=== PATIENT | female | born 1970 | race Caucasian/White ===

== ENCOUNTER 2020-08-04 08:15 | Outpatient (REF) | payer OTHER, SELFPAY ==
--- NOTE | ~2020-08-04 | XR_ITS ---
EXAMINATION: XR CHEST CLINICAL INFORMATION: Morbid obesity COMPARISON: None TECHNIQUE: 2 views of the chest were obtained. FINDINGS: The cardiac and mediastinal contours are normal. The lungs are clear. There is no pleural effusion or pneumothorax. Bony structures are unremarkable. XR/XR chest 2V IMPRESSION: Unremarkable examination.
== END 2020-08-04 08:16 | disposition home or self-care (01) ==
LOC: HO.XRAY 08:15
PROVIDERS: PCP Internal Medicine; Visit Provider Surgery
DX: E66.01 Morbid (severe) obesity due to excess calories (principal); M19.90 Unspecified osteoarthritis, unspecified site; Z88.1 Allergy status to other antibiotic agents; Z88.0 Allergy status to penicillin; Z88.2 Allergy status to sulfonamides; Z90.49 Acquired absence of other specified parts of digestive tract; Z71.3 Dietary counseling and surveillance
CPT/HCPCS: 71046

== ENCOUNTER 2020-08-05 09:34 | Outpatient (REF) | payer OTHER, SELFPAY ==
[2020-08-05 10:10] LABS: MANUAL DIFF FLAG NO
[2020-08-05 10:14] LABS: Basophils Percent Auto 0.2 % (0-2); Eosinophils Absolute Auto 0.1 X10*3/uL (0.0-0.4); Hemoglobin 13.6 g/dl (12.0-16.0); Imm Gran Abs Auto 0.02 X10*3/uL (0.00-0.03); Imm Gran Pct Auto 0.2 % (0.0-0.4); Lymphocytes Absolute Auto 2.2 X10*3/uL (1.2-4.9); Lymphocytes Percent Auto 25.2 % (20-40); Mean Corpuscular HGB Conc 32.4 g/dl (31.0-35.0); Mean Corpuscular Volume 89.6 fL (80-98); Mean Platelet Volume 10.4 fL (9.4-12.3); Monocytes Absolute Auto 0.5 X10*3/uL (0.1-1.2); Monocytes Percent Auto 5.3 % (2-11); Neutrophils Percent Auto 68.1 % (45-73); Platelet Count 268 X10*3/uL (160-400); Red Blood Count 4.69 X10*6/uL (4.20-5.50); Red Cell Distribution Width 12.8 % (11.0-16.0); White Blood Count 8.9 X10*3/uL (4.8-10.8)
[2020-08-05 10:23] LABS: Estimated Average Glucose 166 mg/dL; Hemoglobin A1c % 7.4 %
[2020-08-05 10:52] LABS: Alanine Aminotransferase 27 U/L (0-31); Albumin Level 4.3 g/dL (3.5-5.0); Alkaline Phosphatase 69 U/L (39-117); Anion Gap 16 (12-20); Aspartate Amino Transferase 25 U/L (5-31); Bilirubin Total 0.4 mg/dL (0.0-1.0); Blood Urea Nitrogen 12 mg/dL (9-16); C Reactive Protein 1.56 mg/dL (< or = 0.50); Calcium 9.5 mg/dL (8.4-10.2); Carbon Dioxide 21 mmol/L (22-29); Chloride 105 mmol/L (96-108); Cholesterol 205 mg/dL; Estimated Glomerular Filt Rate > 60; Glucose Random 167 mg/dL (60-115); HDL Cholesterol 44 mg/dL; LDL Cholesterol Calculated 134 mg/dl; Potassium 4.2 mmol/L (3.3-5.1); Sodium 138 mmol/L (135-145); Total Protein 6.8 g/dL (6.5-8.0); Triglycerides 138 mg/dL
[2020-08-05 11:13] LABS: Ferritin 59 ng/mL (10-250); TSH reflex Free T4 0.66 uIU/mL (0.32-4.0); Vitamin D 25-OH Total 8.8 ng/mL (>30)
[2020-08-07 09:12] LABS: Folate 11.3 ng/mL (> or = 4.0); Vitamin B12 361 pg/mL (200-900)
[2020-08-07 21:16] LABS: Insulin Level Total 57.6 uIU/mL
[2020-08-08 06:01] LABS: Zinc 79 mcg/dL (60-130)
[2020-08-08 17:37] LABS: Calcium (PTHI) 9.5 mg/dL (8.6-10.2); PTHI 54 pg/mL (14-64)
[2020-08-09 12:23] LABS: Vitamin A 50 mcg/dL (38-98); Vitamin B1 8 nmol/L (8-30)
== END 2020-08-05 09:35 | disposition home or self-care (01) ==
LOC: HO.LAB 09:34
PROVIDERS: PCP Internal Medicine; Visit Provider Surgery
DX: E66.01 Morbid (severe) obesity due to excess calories (principal)
CPT/HCPCS: 36415; 80053; 80061; 82306; 82607; 82728; 82746; 83036; 83525; 83970; 84425; 84443; 84590; 84630; 85025; 86140

== ENCOUNTER → 2020-08-07 15:14 | Outpatient (REF) | payer OTHER, SELFPAY ==
--- NOTE | 2020-08-07 15:24 | ECG_ITS ---
Test Reason : MORBID OBESITY Blood Pressure : / mmHG Vent. Rate : 112 BPM Atrial Rate : 112 BPM P-R Int : 130 ms QRS Dur : 068 ms QT Int : 324 ms P-R-T Axes : 050 002 -08 degrees QTc Int : 442 ms Sinus tachycardia Moderate voltage criteria for LVH, may be normal variant Borderline ECG No previous ECGs available Referred By: Jah Marinelli Electronically Signed By:Tom Falcon
== END ==
LOC: HO.CARD 15:14
PROVIDERS: PCP Internal Medicine; Visit Provider Surgery
DX: E66.01 Morbid (severe) obesity due to excess calories (principal)
CPT/HCPCS: 93005

== ENCOUNTER 2020-08-09 08:57 | Outpatient (REF) | payer OTHER, SELFPAY | END 2020-08-09 08:58 | disposition home or self-care (01) | LOC: HO.LNP 08:57 | PROVIDERS: PCP Internal Medicine; Visit Provider Physician Assistant | DX: A04.8 Other specified bacterial intestinal infections (principal); E66.01 Morbid (severe) obesity due to excess calories | CPT/HCPCS: 99211 ==

== ENCOUNTER 2020-08-14 15:46 | Outpatient (REF) | payer OTHER, SELFPAY ==
[2020-08-16 15:01] LABS: H Pylori Breath Test NOT DETECTED (NOT DETECTED)
== END 2020-08-14 15:47 | disposition home or self-care (01) ==
LOC: HO.LNP 15:46
PROVIDERS: PCP Internal Medicine; Visit Provider Physician Assistant
DX: A04.8 Other specified bacterial intestinal infections (principal)
CPT/HCPCS: 83013; 99211

== ENCOUNTER → 2020-08-25 08:20 | Outpatient (BNVA) | payer OTHER, SELFPAY | PROVIDERS: PCP Internal Medicine; Visit Provider Surgery ==

== ENCOUNTER 2020-08-29 08:01 | Outpatient (REF) | payer OTHER, SELFPAY ==
--- NOTE | ~2020-08-29 | FL_ITS ---
EXAMINATION: FL GI SERIES CLINICAL INFORMATION: Morbid/severe obesity due to excess calories. COMPARISON: None TECHNIQUE: Routine upper GI air contrast study was performed in upright view. FINDINGS: Following oral administration of thick barium and effervescent granules, there is normal propagation of bolus from the oral cavity through the pharynx, esophagus into stomach without any evidence of obstruction, narrowing or stricture. On placing patient supine and prone lying, the course, caliber and peristalsis of the stomach, duodenal bulb and the sweep is normal. The mucosal pattern of the stomach and the duodenum and the distal esophagus is normal. There is [id number] gastroesophageal reflux into the mid esophagus. No hiatal hernia. There is evidence of previous cholecystectomy. FLUOROSCOPY TIME: 2.9 minutes DOSE AREA PRODUCT: 74.6 uGy-m2 (microgray-meter squared) FL/FL upper GI series IMPRESSION: [id number] gastroesophageal reflux without hiatal hernia. Rest of the upper GI exam appears unremarkable.
--- NOTE | ~2020-08-29 | US_ITS ---
EXAMINATION: US COMPLETE ABDOMEN WITH LIVER ELASTOGRAPHY CLINICAL INFORMATION: Morbid/severe obesity due to excess calories. COMPARISON: None. TECHNIQUE: Real-time imaging of the abdominal viscera. Noninvasive ultrasound liver fibrosis assessment is performed using Linda ElastPQ point quantification shear wave elastography (pSWE) with a C5-2 MHz transducer. Multiple elastography samples are obtained. FINDINGS: PANCREAS: Normal. The visualized pancreatic head and body are normal in appearance. The remainder of the pancreas is obscured from visualization by the overlying bowel gas. ABDOMINAL AORTA: The proximal, middle, and distal aortic segments are normal in caliber. INFERIOR VENA CAVA: Visualized portions are normal. LIVER: The liver demonstrates normal size, contour and increased echogenicity. There is focal hypoechoic area in the left hepatic lobe, likely small focal fatty sparing. No additional lesions seen. There is no intrahepatic ductal dilatation. The right lobe measures 17.4 cm in length. The left lobe measures 12.7 cm in length. Portal flow is hepatopedal. Shear wave liver elastography median stiffness is 1.32 m/s (reference: normal median stiffness is 1.3 m/s or less). IQR/median stiffness to assess sampling precision is 0.28 (reference: good quality data set is IQR/median stiffness of 0.15 or less). GALLBLADDER: The gallbladder has been surgically removed. COMMON BILE DUCT: Normal in caliber measuring 0.5 cm in diameter. RIGHT KIDNEY: Normal. No hydronephrosis. No renal calculi or focal parenchymal lesions. The kidney measures 10.4 cm in maximum dimension. LEFT KIDNEY: Normal. No hydronephrosis. No renal calculi or focal parenchymal lesions. The kidney measures 10.7 cm in maximum dimension. SPLEEN: Normal. The spleen measures 9.1 cm in maximum dimension. FREE FLUID: None. US/US abdomen comp w elastography IMPRESSION: 1. Diffuse hepatic steatosis with focal hypoechoic area, likely fatty sparing. 2. Liver elastography: Median stiffness value is 1.32 suggestive of a high probability normal exam. REFERENCE: Society of Radiologists in Ultrasound Liver Stiffness Thresholds (2020): LIVER STIFFNESS THRESHOLDS: *Liver Stiffness equal or less than 1.3 m/s: High probability of being normal. *Liver Stiffness less than 1.7 m/s: In the absence of other known clinical signs, rules out compensated advanced chronic liver disease. *Liver Stiffness 1.7-2.1 m/s: Suggestive of compensated advanced chronic liver disease but need further test for confirmation. *Liver Stiffness over 2.1 m/s: Rules in compensated advanced chronic liver disease. *Liver Stiffness over 2.4 m/s: Suggestive of clinically significant portal hypertension. QUALITY OF DATA SET: *IQR/Median value equal or less than 0.15 implies a quality data set. *IQR/Median value over 0.15 implies a poor quality data set. SIGNIFICANT CHANGE FROM PRIOR EXAM: Significant change if liver stiffness measurement is 10% or greater from prior exam. OTHER CONSIDERATIONS: The stage of liver fibrosis may be overestimated in the setting of acute hepatitis, liver inflammation, elevated liver function tests, hepatic vascular congestion, obstructive cholestasis, non-fasting state, and infiltrative diseases such as amyloidosis and lymphoma. In some patients with NAFLD, the liver stiffness thresholds for compensated advanced chronic liver disease may be lower. In causes other than viral hepatitis and NAFLD, liver stiffness thresholds are not well established.
== END 2020-08-29 08:02 | disposition home or self-care (01) ==
LOC: HO.US 08:01
PROVIDERS: PCP Internal Medicine; Visit Provider Surgery
DX: Z01.818 Encounter for other preprocedural examination (principal); E66.01 Morbid (severe) obesity due to excess calories; K21.9 Gastro-esophageal reflux disease without esophagitis
CPT/HCPCS: 74240; 76705; 76981

== ENCOUNTER → 2020-08-30 08:25 | Outpatient (REF) | payer OTHER, SELFPAY ==
--- NOTE | 2020-08-30 08:30 | CA_ITS ---
Acquisition Time: 2020-08-30 08:28:25 Total Exercise Time: 00:05:08 Test Indications: Abnormal ECG Medications: NONE Protocol: KOMAL Max HR: 184 BPM 106% of Pred: 173 BPM Max BP: 164/090 mmHG Max Work Load: 7.0 METS Exercise stress test using Komal protocol, total of 5 min 8 sec, pt tolerated well, METS 7.00 and TAPHR up to 106 %.. Pt denies any anginal sx. EKG without arrhythmias, no ischemic changes seen during exercise or in recovery. Normotensive response to exercise. Test reviewed with Dr. Lua. Referred By: Jah Marinelli Overread By: Paulette Wiggins NP
== END ==
LOC: HO.CARD 08:25
PROVIDERS: PCP Internal Medicine; Visit Provider Surgery
DX: Z01.818 Encounter for other preprocedural examination (principal); R06.02 Shortness of breath; I10 Essential (primary) hypertension; R94.31 Abnormal electrocardiogram [ECG] [EKG]
CPT/HCPCS: 93016; 93017; 93018

== ENCOUNTER → 2020-08-31 13:13 | Outpatient (BNVA) | payer OTHER, SELFPAY | PROVIDERS: PCP Internal Medicine; Visit Provider Dietitian, Registered | DX: E66.01 Morbid (severe) obesity due to excess calories (principal); Z68.42 Body mass index [BMI] 45.0-49.9, adult | CPT/HCPCS: 97802 ==

== ENCOUNTER → 2020-09-18 08:21 | Outpatient (BNVA) | payer OTHER, SELFPAY | PROVIDERS: PCP Internal Medicine; Visit Provider Surgery ==

== ENCOUNTER → 2020-09-26 08:29 | Outpatient (REF) | payer OTHER, SELFPAY ==
--- NOTE | 2020-09-26 08:33 | CA_ITS ---
Transthoracic Echocardiogram Patient (Last, First, Middle): Arminda Cameron M Gender: Female Date of : 1970 Age: 49 Procedure Date: 09/26/2020 Procedure Type: Transthoracic Echocardiogram Location: OP Height: 160.02 cm Weight: 122.47 kg BSA: 2.20 m2 Heart Rate: bpm BP: 134 / 82 mmHg Office Equipment Mechanic: Won MD: Jah Marinelli MD Kiln Cleaner: Olivier Dugan MD Symptoms: R94.31 - Abnormal electrocardiogram [ECG] [EKG] Study Quality: Fair ECG Rhythm: Sinus Conclusions: - 1. Technically limited study 2. Normal LV systolic and diastolic function 3. Limited visualization of cardiac valves with normal cardiac valvular Doppler 4. No gross pericardial effusion Findings Procedure Information The patient receives contrast. Left Ventricle Normal left ventricular size, thickness, and systolic function. The visually estimated ejection fraction is between 60-65%. Diastolic function is normal for age. Right Ventricle Normal right ventricular cavity size and systolic function. Atria The left atrium is normal in size. Interatrial shunt cannot be excluded. The right atrium was not well visualized. Aortic Valve The aortic valve was not well visualized. There is no aortic valve stenosis. There is no aortic valve regurgitation. Mitral Valve Likely normal mitral valve structure and function. There is trace mitral valve regurgitation. There is no mitral valve stenosis. Pulmonic Valve The pulmonic valve was not well visualized. Tricuspid Valve The tricuspid valve was not well visualized. Tricuspid regurgitation envelope is inadequate for calculation of right ventricular systolic pressure. Great Vessels The aorta was not well visualized. The pulmonary artery was not well visualized. Venous The inferior vena cava is normal in size and collapses greater than 50% with inspiration. Pericardium/Pleural There is no evidence of pericardial effusion. Prior Study Comparison No prior study available for comparison. Measurements 2D Linear Measurements RVIDd: 2.46 RVIDd Index: 1.12 IVSd: 0.97 0.6-0.9/0.6-1.0 cm LVIDd: 4.26 3.9-5.3/4.2-5.9 cm LVIDd Index: 1.94 2.4-3.2/2.2-3.1 cm/m2 LVIDs: 2.87 2.0-3.6 cm LVPWd: 1.18 0.7-1.1 cm Ao Root: 2.60 2.1-3.5 cm LA Diam: 3.40 2.7-3.8/3.0-4.0 cm LAIDs Index: 1.55 1.5-2.3 cm/m2 LV Mass: 193.77 67-162/88-224 g LV Mass Index: 88.08 43-95/49-115 g/m2 LVOT Diam: 2.10 3.0+(-)1.3 cm 2D Systolic Function EF 4C: 61.90 >55% EF 2C: 55.30 >55% EF BiP: 58.60 >55% Mitral Valve MV Pk E: 0.77 MV PK A: 0.62 MV Decel Time: 211.00 E/A: 1.20 E'Lateral: 10.60 E'Medial: 7.93 E/E' Med: 9.70 E/E' Lat: 7.30 Aortic Valve AoV Pk Javon: 1.67 AoV Mn Javon: 1.08 AoV VTI: 0.29 AoV Pk Grad: 11.00 Aov Mn Grad: 6.00 DOROTHY Cont.VTI: 2.06 LVOT LVOT Pk Javon: 0.94 LVOT Mn Javon: 0.62 LVOT VTI: 0.18 LVOT Pk Grad: 4.00 LVOT Mn Grad: 2.00 LVOT Diam: 2.10 LVOT Area: 3.46 Diastolic Function MV Pk E: 0.77 MV Pk A: 0.62 E/A: 1.20 E'Medial: 7.93 E/E' Med: 9.70 E' Laterial: 10.60 E/E' Lat: 7.30 Great Vessels Aorta Ao Root-2D: 2.60 2.0-3.7 cm Ao Asc: 2.70 2.1-3.4 cm Ao Arch: 2.50 Updated in Other Vendor System with Status of Final Olivier Dugan MD electronically signed on 09/27/2020 3:47:58 PM with status of Final
== END ==
LOC: HO.CARD 08:29
PROVIDERS: PCP Internal Medicine; Visit Provider Surgery
DX: Z01.818 Encounter for other preprocedural examination (principal); R06.02 Shortness of breath; I10 Essential (primary) hypertension; R94.31 Abnormal electrocardiogram [ECG] [EKG]
CPT/HCPCS: 93306; Q9957

== ENCOUNTER → 2020-10-17 08:06 | Outpatient (BNVA) | payer OTHER, SELFPAY | PROVIDERS: PCP Internal Medicine; Visit Provider Surgery ==

== ENCOUNTER 2020-10-30 09:39 | Outpatient (REF) | payer OTHER, SELFPAY ==
[2020-10-30 10:29] LABS: Estimated Average Glucose 128 mg/dL; Hemoglobin A1C 150.1626 umol/L; Hemoglobin A1c % 6.1 %
[2020-10-30 10:33] LABS: Anion Gap 14 (12-20); Blood Urea Nitrogen 11 mg/dL (9-16); Calcium 9.7 mg/dL (8.4-10.2); Carbon Dioxide 22 mmol/L (22-29); Chloride 105 mmol/L (96-108); Estimated Glomerular Filt Rate > 60; Glucose Random 135 mg/dL (60-115); Potassium 4.3 mmol/L (3.3-5.1); Sodium 137 mmol/L (135-145)
[2020-10-30 10:58] LABS: Vitamin D 25-OH Total 49.3 ng/mL (>30)
[2020-10-30 11:55] LABS: Microalbum/Creatinine Ratio Ur 42.5 ug/mg cr
[2020-10-31 11:16] LABS: Insulin Level Total 122.2 uIU/mL
== END 2020-10-30 09:40 | disposition home or self-care (01) ==
LOC: HO.LAB 09:39
PROVIDERS: PCP Internal Medicine; Visit Provider Internal Medicine
DX: E11.9 Type 2 diabetes mellitus without complications (principal); E55.9 Vitamin D deficiency, unspecified
CPT/HCPCS: 36415; 80048; 82043; 82306; 83036; 83525

== ENCOUNTER → 2020-11-29 07:50 | Outpatient (BNVA) | payer OTHER, SELFPAY | PROVIDERS: PCP Internal Medicine; Visit Provider Surgery ==

== ENCOUNTER → 2020-12-01 13:25 | Outpatient (BNVA) | payer OTHER, SELFPAY | PROVIDERS: PCP Internal Medicine; Referring Provider Internal Medicine; Visit Provider Physician Assistant ==

== ENCOUNTER 2020-12-06 19:48 | Inpatient (IN) | payer OTHER, SELFPAY ==
[2020-12-01 10:12] LABS: MANUAL DIFF FLAG NO
[2020-12-01 10:19] LABS: Basophils Percent Auto 0.4 % (0-2); Eosinophils Absolute Auto 0.1 X10*3/uL (0.0-0.4); Eosinophils Percent Auto 1.5 % (0-4); Hematocrit 40.5 % (37-47); Imm Gran Abs Auto 0.02 X10*3/uL (0.00-0.03); Imm Gran Pct Auto 0.2 % (0.0-0.4); Lymphocytes Absolute Auto 2.2 X10*3/uL (1.2-4.9); Lymphocytes Percent Auto 27.5 % (20-40); Mean Corpuscular HGB Conc 32.1 g/dl (31.0-35.0); Mean Corpuscular Hemoglobin 28.8 pg (27.0-33.0); Mean Corpuscular Volume 89.6 fL (80-98); Monocytes Absolute Auto 0.5 X10*3/uL (0.1-1.2); Neutrophils Absolute Auto 5.2 X10*3/uL (2.0-8.3); Neutrophils Percent Auto 64.4 % (45-73); Platelet Count 279 X10*3/uL (160-400); Red Blood Count 4.52 X10*6/uL (4.20-5.50); Red Cell Distribution Width 13.5 % (11.0-16.0); White Blood Count 8.1 X10*3/uL (4.8-10.8)
[2020-12-01 10:21] LABS: Prothrombin Time 11.4 SEC (9.9-13.0)
[2020-12-01 10:24] LABS: Partial Thromboplastin Time 35.5 SEC (24.1-38.0)
[2020-12-01 10:47] LABS: Estimated Average Glucose 123 mg/dL; Hemoglobin A1C 141.4013 umol/L; Hemoglobin A1c % 5.9 %
[2020-12-01 11:02] LABS: TSH reflex Free T4 0.64 uIU/mL (0.32-4.0)
[2020-12-01 11:07] LABS: Alanine Aminotransferase 26 U/L (0-31); Albumin Level 4.2 g/dL (3.5-5.0); Alkaline Phosphatase 64 U/L (39-117); Anion Gap 13 (12-20); Aspartate Amino Transferase 24 U/L (5-31); Bilirubin Total 0.5 mg/dL (0.0-1.0); Blood Urea Nitrogen 8 mg/dL (9-16); C Reactive Protein 1.28 mg/dL (< or = 0.50); Calcium 9.4 mg/dL (8.4-10.2); Carbon Dioxide 23 mmol/L (22-29); Chloride 108 mmol/L (96-108); Cholesterol 218 mg/dL; Estimated Glomerular Filt Rate > 60; Glucose Random 117 mg/dL (60-115); HDL Cholesterol 37 mg/dL; LDL Cholesterol Calculated 155 mg/dl; Potassium 4.1 mmol/L (3.3-5.1); Sodium 140 mmol/L (135-145); Total Protein 6.6 g/dL (6.5-8.0); Triglycerides 133 mg/dL
[2020-12-02 10:02] LABS: Insulin Level Total 24.2 uIU/mL
[2020-12-04 11:54] VITALS: BP 134/80; PULSE 94; RESP 16; O2SAT 96; BMI 42.2
--- NOTE | 2020-12-04 11:55 | HO.ANESPROP2 ---
Documented by User: Kirstie Valverde 12/04/20 12:37 HPI - Anesthesia Eval Consult details Narrative: 50yo F for Gastrectomy Sleeve, EGD, Poss Diaphragmatic Hernia, Poss Ventral Hernia, Poss open PMFSH Active Problems Active Problems: All Active Problems (Updated 11/29/20 @ 16:20 by Jah Marinelli MD) Non-insulin dependent diabetes mellitus (Acute) Adjustment disorder, unspecified (Acute) Vitamin B12 deficiency (Acute) Vitamin D deficiency (Acute) Abnormal EKG (Acute) DJD (degenerative joint disease) (Acute) Morbid obesity (Acute) Past Medical History Medical History Arthritis COVID-19 vaccine series completed Diabetes DJD (degenerative joint disease) Enlarged tongue GERD (gastroesophageal reflux disease) Morbid obesity Non-insulin dependent diabetes mellitus Family History Family History Mother Diabetes Father Hyperlipidemia Son Colitis Daughter No problems noted. 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 If so, by whom?: No Spiritual Healthcare Practices: none Taoist Healthcare Practices: none Cultural Healthcare Practices: none Are you DNR?: No Advance Directives: No Advance Directives Information Provided: No Advance Directives on File: No Recently lost weight without trying: No Patient : No FDLMP: 11/30/2020 : No Poor oral hygiene: No Narrative Narrative: No recent illness >4 mets with regular exercise Meds Allergies Allergy/AdvReac Type Severity Reaction Status Date / Time amoxicillin Allergy Severe hives Verified 12/07/20 06:16 penicillin V Allergy Severe hives Verified 12/07/20 06:16 Sulfa (Sulfonamide Allergy Severe hives Verified 12/07/20 06:16 Antibiotics) erythromycin base Allergy Hives Verified 12/07/20 06:16 Penicillins Allergy Hives Verified 12/07/20 06:16 sulfamethoxazole Allergy Hives Verified 12/07/20 06:16 [From Bactrim] trimethoprim [From Bactrim] Allergy Hives Verified 12/07/20 06:16 Home Medications Medication Instructions Recorded Confirmed Last Taken Type metformin 500 mg tablet 500 mg PO BEDTIME 11/29/20 12/07/20 12/06/20 21:00 History ondansetron HCl 4 mg tablet 4 mg PO Q12H PRN 12/07/20 12/07/20 Unknown History ([place]) Exam Exam Date and Time: December 04, 2020 1155 Pertinent Lab Results Pertinent Lab Results: Laboratory Tests 12/01/20 12/01/20 12/01/20 09:05 09:05 09:05 WBC 8.1 RBC 4.52 Hgb 13.0 Hct 40.5 MCV 89.6 MCH 28.8 MCHC 32.1 RDW 13.5 Plt Count 279 MPV 11.0 Immature Gran % (Auto) 0.2 Neut % (Auto) 64.4 Lymph % (Auto) 27.5 [place] % (Auto) 6.0 Eos % (Auto) 1.5 Baso % (Auto) 0.4 Lymph # (Auto) 2.2 [place] # (Auto) 0.5 Eos # (Auto) 0.1 Baso # (Auto) 0.0 Abs Immat Gran (auto) 0.02 Absolute Neuts (auto) 5.2 Absolute Nucleated RBC 0.000 Nucleated RBC % (auto) 0.0 PT 11.4 INR 1.0 APTT 35.5 Sodium 140 Potassium 4.1 Chloride 108 Carbon Dioxide 23 Anion Gap 13 BUN 8 L Creatinine 0.74 Estim Creat Clear Calc TNP Estimated GFR > 60 Random Glucose 117 H Estimat Average Glucose Hemoglobin A1c % Total Insulin Calcium 9.4 Total Bilirubin 0.5 AST 24 ALT 26 Alkaline Phosphatase 64 C-Reactive Protein 1.28 H Total Protein 6.6 Albumin 4.2 Triglycerides 133 Cholesterol 218 LDL Cholesterol, Calc 155 HDL Cholesterol 37 TSH 0.64 Blood Type Antibody Screen 12/01/20 12/01/20 12/01/20 09:05 09:05 09:05 WBC RBC Hgb Hct MCV MCH MCHC RDW Plt Count MPV Immature Gran % (Auto) Neut % (Auto) Lymph % (Auto) [place] % (Auto) Eos % (Auto) Baso % (Auto) Lymph # (Auto) [place] # (Auto) Eos # (Auto) Baso # (Auto) Abs Immat Gran (auto) Absolute Neuts (auto) Absolute Nucleated RBC Nucleated RBC % (auto) PT INR APTT Sodium Potassium Chloride Carbon Dioxide Anion Gap BUN Creatinine Estim Creat Clear Calc Estimated GFR Random Glucose Estimat Average Glucose 123 Hemoglobin A1c % 5.9 Total Insulin 24.2 H Calcium Total Bilirubin AST ALT Alkaline Phosphatase C-Reactive Protein Total Protein Albumin Triglycerides Cholesterol LDL Cholesterol, Calc HDL Cholesterol TSH Blood Type O Positive Antibody Screen NEGATIVE Narrative Narrative: EKG 07/2020 Vent. Rate : 112 BPM Atrial Rate : 112 BPM P-R Int : 130 ms QRS Dur : 068 ms QT Int : 324 ms P-R-T Axes : 050 002 -08 degrees QTc Int : 442 ms Sinus tachycardia Moderate voltage criteria for LVH, may be normal variant Borderline ECG No previous ECGs available Stress 08/2020 Protocol: TARAS Max HR: 184 BPM 106% of Pred: 173 BPM Max BP: 164/090 mmHG Max Work Load: 7.0 METS Exercise stress test using Taras protocol, total of 5 min 8 sec, pt tolerated well, METS 7.00 and TAPHR up to 106 %.. Pt denies any anginal sx. EKG without arrhythmias, no ischemic changes seen during exercise or in recovery. Normotensive response to exercise. Test reviewed with Dr. Lua. Echo 09/2020 Conclusions: - 1. Technically limited study 2. Normal LV systolic and diastolic function 3. Limited visualization of cardiac valves with normal cardiac valvular Doppler 4. No gross pericardial effusion Airway Mallampati Class: III TM Dist: >3cm Neck ROM: Full Loose/Missing/Broken Teeth: Yes (Molars pulled, crowned lower left molar) Heart: RRR Lungs: CTAB Assessment and Plan Assessment Anesthesia Assessment: Anesthesia Plan Discussed and PAT Visit Documented by User: Amanda Vargas 12/07/20 07:31 HPI - Anesthesia Eval Consult details Narrative: 50 yo female patient for sleeve gastrectomy PMFSH Past Medical History Medical History Arthritis COVID-19 vaccine series completed Diabetes DJD (degenerative joint disease) Enlarged tongue GERD (gastroesophageal reflux disease) Morbid obesity Non-insulin dependent diabetes mellitus Family History Family History Mother Diabetes Father Hyperlipidemia Son Colitis Daughter No problems noted. 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 If so, by whom?: No Spiritual Healthcare Practices: none Taoist Healthcare Practices: none Cultural Healthcare Practices: none Are you DNR?: No Advance Directives: No Advance Directives Information Provided: No Advance Directives on File: No Recently lost weight without trying: No Patient : No FDLMP: 11/30/2020 : No Poor oral hygiene: No Meds Allergies Allergy/AdvReac Type Severity Reaction Status Date / Time amoxicillin Allergy Severe hives Verified 12/07/20 06:16 penicillin V Allergy Severe hives Verified 12/07/20 06:16 Sulfa (Sulfonamide Allergy Severe hives Verified 12/07/20 06:16 Antibiotics) erythromycin base Allergy Hives Verified 12/07/20 06:16 Penicillins Allergy Hives Verified 12/07/20 06:16 sulfamethoxazole Allergy Hives Verified 12/07/20 06:16 [From Bactrim] trimethoprim [From Bactrim] Allergy Hives Verified 12/07/20 06:16 Home Medications Medication Instructions Recorded Confirmed Last Taken Type metformin 500 mg tablet 500 mg PO BEDTIME 11/29/20 12/07/20 12/06/20 21:00 History ondansetron HCl 4 mg tablet 4 mg PO Q12H PRN 12/07/20 12/07/20 Unknown History ([place]) Exam Height,Weight and Vital Signs: Vital Signs Temp Pulse Resp BP Pulse Ox 12/07/20 06:37 97.5 F 89 16 112/75 98 Pertinent Lab Results Pertinent Lab Results: Lab Results 12/01/20 12/01/20 12/01/20 Range/Units 09:05 09:05 09:05 WBC 8.1 (4.8-10.8) X10*3/uL RBC 4.52 (4.20-5.50) X10*6/uL Hgb 13.0 (12.0-16.0) g/dl Hct 40.5 (37-47) % MCV 89.6 (80-98) fL MCH 28.8 (27.0-33.0) pg MCHC 32.1 (31.0-35.0) g/dl RDW 13.5 (11.0-16.0) % Plt Count 279 (160-400) X10*3/uL MPV 11.0 (9.4-12.3) fL Immature Gran % (Auto) 0.2 (0.0-0.4) % Neut % (Auto) 64.4 (45-73) % Lymph % (Auto) 27.5 (20-40) % [place] % (Auto) 6.0 (2-11) % Eos % (Auto) 1.5 (0-4) % Baso % (Auto) 0.4 (0-2) % Lymph # (Auto) 2.2 (1.2-4.9) X10*3/uL [place] # (Auto) 0.5 (0.1-1.2) X10*3/uL Eos # (Auto) 0.1 (0.0-0.4) X10*3/uL Baso # (Auto) 0.0 (0.0-0.2) X10*3/uL Abs Immat Gran (auto) 0.02 (0.00-0.03) X10*3/uL Absolute Neuts (auto) 5.2 (2.0-8.3) X10*3/uL Absolute Nucleated RBC 0.000 (0.0-0.012) X10*3/uL Nucleated RBC % (auto) 0.0 (0.0-0.2) /100WBC PT 11.4 (9.9-13.0) SEC INR 1.0 (0.9-1.1) APTT 35.5 (24.1-38.0) SEC Sodium 140 (135-145) mmol/L Potassium 4.1 (3.3-5.1) mmol/L Chloride 108 (96-108) mmol/L Carbon Dioxide 23 (22-29) mmol/L Anion Gap 13 (12-20) BUN 8 L (9-16) mg/dL Creatinine 0.74 (0.5-1.4) mg/dL Estim Creat Clear Calc TNP Estimated GFR > 60 POC Glucose (60-115) mg/dL Random Glucose 117 H (60-115) mg/dL Estimat Average Glucose mg/dL Hemoglobin A1c % % Total Insulin uIU/mL Calcium 9.4 (8.4-10.2) mg/dL Total Bilirubin 0.5 (0.0-1.0) mg/dL AST 24 (5-31) U/L ALT 26 (0-31) U/L Alkaline Phosphatase 64 (39-117) U/L C-Reactive Protein 1.28 H (< or = 0.50) mg/dL Total Protein 6.6 (6.5-8.0) g/dL Albumin 4.2 (3.5-5.0) g/dL Triglycerides 133 mg/dL Cholesterol 218 mg/dL LDL Cholesterol, Calc 155 mg/dl HDL Cholesterol 37 mg/dL TSH 0.64 (0.32-4.0) uIU/mL Urine Test (NEGATIVE) COVID-19 (STELLA) (Negative) COVID-19 Clin Com Blood Type Antibody Screen 12/01/20 12/01/20 12/01/20 Range/Units 09:05 09:05 09:05 WBC (4.8-10.8) X10*3/uL RBC (4.20-5.50) X10*6/uL Hgb (12.0-16.0) g/dl Hct (37-47) % MCV (80-98) fL MCH (27.0-33.0) pg MCHC (31.0-35.0) g/dl RDW (11.0-16.0) % Plt Count (160-400) X10*3/uL MPV (9.4-12.3) fL Immature Gran % (Auto) (0.0-0.4) % Neut % (Auto) (45-73) % Lymph % (Auto) (20-40) % [place] % (Auto) (2-11) % Eos % (Auto) (0-4) % Baso % (Auto) (0-2) % Lymph # (Auto) (1.2-4.9) X10*3/uL [place] # (Auto) (0.1-1.2) X10*3/uL Eos # (Auto) (0.0-0.4) X10*3/uL Baso # (Auto) (0.0-0.2) X10*3/uL Abs Immat Gran (auto) (0.00-0.03) X10*3/uL Absolute Neuts (auto) (2.0-8.3) X10*3/uL Absolute Nucleated RBC (0.0-0.012) X10*3/uL Nucleated RBC % (auto) (0.0-0.2) /100WBC PT (9.9-13.0) SEC INR (0.9-1.1) APTT (24.1-38.0) SEC Sodium (135-145) mmol/L Potassium (3.3-5.1) mmol/L Chloride (96-108) mmol/L Carbon Dioxide (22-29) mmol/L Anion Gap (12-20) BUN (9-16) mg/dL Creatinine (0.5-1.4) mg/dL Estim Creat Clear Calc Estimated GFR POC Glucose (60-115) mg/dL Random Glucose (60-115) mg/dL Estimat Average Glucose 123 mg/dL Hemoglobin A1c % 5.9 % Total Insulin 24.2 H uIU/mL Calcium (8.4-10.2) mg/dL Total Bilirubin (0.0-1.0) mg/dL AST (5-31) U/L ALT (0-31) U/L Alkaline Phosphatase (39-117) U/L C-Reactive Protein (< or = 0.50) mg/dL Total Protein (6.5-8.0) g/dL Albumin (3.5-5.0) g/dL Triglycerides mg/dL Cholesterol mg/dL LDL Cholesterol, Calc mg/dl HDL Cholesterol mg/dL TSH (0.32-4.0) uIU/mL Urine Test (NEGATIVE) COVID-19 (STELLA) (Negative) COVID-19 Clin Com Blood Type O Positive Antibody Screen NEGATIVE 12/07/20 12/07/20 12/07/20 Range/Units 06:10 06:18 06:34 WBC (4.8-10.8) X10*3/uL RBC (4.20-5.50) X10*6/uL Hgb (12.0-16.0) g/dl Hct (37-47) % MCV (80-98) fL MCH (27.0-33.0) pg MCHC (31.0-35.0) g/dl RDW (11.0-16.0) % Plt Count (160-400) X10*3/uL MPV (9.4-12.3) fL Immature Gran % (Auto) (0.0-0.4) % Neut % (Auto) (45-73) % Lymph % (Auto) (20-40) % [place] % (Auto) (2-11) % Eos % (Auto) (0-4) % Baso % (Auto) (0-2) % Lymph # (Auto) (1.2-4.9) X10*3/uL [place] # (Auto) (0.1-1.2) X10*3/uL Eos # (Auto) (0.0-0.4) X10*3/uL Baso # (Auto) (0.0-0.2) X10*3/uL Abs Immat Gran (auto) (0.00-0.03) X10*3/uL Absolute Neuts (auto) (2.0-8.3) X10*3/uL Absolute Nucleated RBC (0.0-0.012) X10*3/uL Nucleated RBC % (auto) (0.0-0.2) /100WBC PT (9.9-13.0) SEC INR (0.9-1.1) APTT (24.1-38.0) SEC Sodium (135-145) mmol/L Potassium (3.3-5.1) mmol/L Chloride (96-108) mmol/L Carbon Dioxide (22-29) mmol/L Anion Gap (12-20) BUN (9-16) mg/dL Creatinine (0.5-1.4) mg/dL Estim Creat Clear Calc Estimated GFR POC Glucose 106 (60-115) mg/dL Random Glucose (60-115) mg/dL Estimat Average Glucose mg/dL Hemoglobin A1c % % Total Insulin uIU/mL Calcium (8.4-10.2) mg/dL Total Bilirubin (0.0-1.0) mg/dL AST (5-31) U/L ALT (0-31) U/L Alkaline Phosphatase (39-117) U/L C-Reactive Protein (< or = 0.50) mg/dL Total Protein (6.5-8.0) g/dL Albumin (3.5-5.0) g/dL Triglycerides mg/dL Cholesterol mg/dL LDL Cholesterol, Calc mg/dl HDL Cholesterol mg/dL TSH (0.32-4.0) uIU/mL Urine Test NEGATIVE (NEGATIVE) COVID-19 (STELLA) Negative (Negative) COVID-19 Clin Com See Note Blood Type Antibody Screen Airway Mallampati Class: III TM Dist: >3cm Neck ROM: Full Loose/Missing/Broken Teeth: No ([place] intact) Heart: RRR Lungs: CTAB Assessment and Plan Final Anesthetic Review NPO: Yes ASA Class: III Final Preanesthetic Review: No Changes in Pt Med Stat, Meds/Allgs Chart Reviewed, Consent Obtained/Reviewed and Anes Risks/Benef Reviewed Patient Risk: Intermediate Procedure Risk: Intermediate Assessment/Block/Sedation in SS: Assess/Block/Sedation-SS Anesthetic Plan Anesthetic Plan: GA Disposition: Standard PACU and Inp. Admit - Standard Bed
--- NOTE | 2020-12-06 19:47 | MHC.SHP ---
Pre-Procedural Eval Section A Date of Service: 12/06/20 The patient is an INPATIENT: Yes Changes since office visit: No Cold of Flu in the past 2 weeks, No New Medical Problems, No Changes in Medication and No Patient answered all questions Section B Chief Complaint: Morbid Severe Obesity Relevant Family History (Specify if Yes): No Present Medications: see Short Stay Collaborative assessment Medical History: No relevant PMH History of Previous Operations: No relevant previous surgery Allergies: Allergies Allergy/AdvReac Type Severity Reaction Status Date / Time amoxicillin Allergy Severe hives Verified 12/04/20 12:10 penicillin V Allergy Severe hives Verified 12/04/20 12:10 Sulfa (Sulfonamide Allergy Severe hives Verified 12/04/20 12:10 Antibiotics) erythromycin base Allergy Hives Verified 12/04/20 12:10 Penicillins Allergy Hives Verified 12/04/20 12:10 sulfamethoxazole Allergy Hives Verified 12/04/20 12:10 [From Bactrim] trimethoprim [From Bactrim] Allergy Hives Verified 12/04/20 12:10 Review of Systems Sugical H&P ROS: Negative: Constitution, Cardiovascular, Respiratory, Neurological, Psychiatric, Hem-Onc, Allergic/Immunologic, Gastrointestinal, Genitourinary, Musculoskeletal, Integumentary, Endocrine and Eyes/Ears/Nose/Throat Exam Surgical H&P Exam: Normal: HEENT, Normal: Heart, Normal: Lungs, Normal: Extremities, Normal: Abdomen, Normal: Skin and Normal: Neurological Plan Diagnosis/Plan: Unchanged I have reviewed the history and physical and performed a pertinent physical examination on my patient. No changes have occurred unless specified.
[2020-12-07] VITALS (12 sets, daily range): BP systolic 112–155; BP diastolic 48–76; PULSE 89–114; RESP 16–20; TEMP 35.9–37.2; O2SAT 94–99
[2020-12-07 06:36] LABS: UPreg QC Valid YES; Urine Pregnancy NEGATIVE (NEGATIVE)
[2020-12-07 06:37] LABS: Glucose, Whole Blood 106 mg/dL (60-115)
[2020-12-07 06:45] LABS: COVID-19 Test Negative (Negative); IDNOW Serial# 9DD0AD1C
[2020-12-07] MEDS: levoFLOXacin/D5W 500 MG/100 ML PIGGYBACK 100 MG IV (07:13)
[2020-12-07] MEDS: Lactated Ringers 1,000 ML 999 ML IV (07:15)
[2020-12-07] MEDS: Lactated Ringers 1,000 ML 100 ML IVCONT (07:25)
--- NOTE | 2020-12-07 10:28 | P.BOP_ITS ---
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 The patient met the BMI-criteria for bariatric surgery based on the BMI on initial presentation. The patient should not be penalized for achieving such weight loss because ?it is not sustainable long-term without surgical interv ention and it was achieved in preparation for bariatric surgery ?under my direction and based on my published research ([email or web address] and? h [email or web address] ) ?that a 10% preoperative weight loss improves long-term weight loss after surgery and reduces perioperative complications.? Insurance carriers such as [employer] [place] have endorsed my recommendations ?and have included in their policies criteria to include a 10% preoperative weight loss requirement. PROCEDURE: Esophago-gastroscopy, laparoscopic lysis of adhesions, laparoscopic sleeve gastrectomy and laparoscopic gastropexy INDICATIONS: This is a 50 year-old female who was electively scheduled for laparoscopic, possibly open sleeve gastrectomy. The risks and complications of the procedure were discussed with the patient in advance, particularly the possibility of ; pulmonary embolism; staple line leak; bleeding; GERD; cardiac, pulmonary, or renal complications; as well as long-term problems such as insufficient weight loss, vitamin deficiency, strictures, or ulcers. The patient understood all the risks, and was in agreement to proceed with surgery. DESCRIPTION OF PROCEDURE: After informed consent was obtained from the patient, the patient was given preoperative antibiotics, and was transferred to the operating room. After successful induction of general anesthesia, a Will catheter and pneumatic compressive devices were placed on both lower extremities. An upper endoscopy was performed next. The oropharynx and esophagus appeared to be within normal limits. There was no diaphragmatic hernia present consistent with the findings of the preoperative upper GI. The stomach was entered. Then after all fluid and air were suctioned and the stomach was fully decompressed, the scope was withdrawn and secured in the mid esophagus. The patient was then prepped and draped in the usual sterile manner, and abdominal access was established at the right upper quadrant with the Nimesh technique. A 12 mm blunt port was inserted, and the abdomen was insufflated with CO2 to a pressure of 15 mmHg. Under direct visualization, additional ports were placed, specifically two 5 mm Versi-step ports to the left upper quadrant, and a 5 mm Versi-Step port to the right upper quadrant. 1% lidocaine plain was used to infiltrate all port sites as well as all fascia defects. Using the EndoClose suture passer device, I placed a #1 Polysorb tie across the falciform ligament in order to retract it up against the abdominal wall and prevent injury of the ligament with our instruments during the procedure. Following that, the patient was placed in a steep reverse Trendelenburg position. An additional 5 mm port was placed to the right flank for the Mediflex retractor that was used to retract the left lobe of the liver. The gastro-esophageal fat pad was opened with the ultrasonic device (Thunderbeat, Olympus) and the anterior esophagus and hiatus were exposed. The angle of His was opened with the ultrasonic device the fundus of the stomach from any diaphragmatic and splenic attachments. I then opened the gastrocolic ligament between the transverse colon and the greater curvature of the stomach with the ultrasonic device to enter the lesser sac and facilitate the ligation of the short gastric vessels. I started at a mid-point along the greater curvature and using the Thunderbeat, all short gastric vessels were divided all the way to the angle of His until the left sandeep was completely dissected at its entirety. I then divided the gastro-colic ligament distally to a distance of about 3-4 cm proximal to the esophagus. There were extensive congenital adhesions between the pancreas and posterior gastric wall. Those were lysed completely with the ultrasonic device. Adhesiolysis took approximately 45 min to complete. The dissection was difficult due to the patient's body habitus with large amount of intra-abdominal fat which prolonged the operation for an additional 40 minutes. The stomach was then divided transversely with one Endo [place]-45 purple, one [place]- 45 orange and four [place]-60 articulating orange loads using the CasenetON staplers and loads. Every effort was made that the gastric sleeve had a tubular shape and an even caliber throughout. Once the sleeve resection was completed, the staple line of the gastric sleeve was reinforced with Hemoclips. The resected stomach was retrieved without difficulty from the Nimesh port. A gastropexy was then performed in order to prevent postoperative GERD and partial gastric volvulus. Several interrupted 2.0 Surgidac sutures were placed between the sleeve's staple line and the previously divided greater omentum and gastro-colic ligament using the Endo-Stitch device. ?An upper endoscopy was performed. There was no narrowing at the GE junction. The scope was easily advanced all the way to the pylorus which was clearly visualized. There was no narrowing anywhere and the sleeve's caliber was even throughout. The sleeve's staple line was inspected and there was no evidence of ischemia, bleeding or dehiscence. At that point the gastroscope was withdrawn from the patient?s mouth while we were decompressing the bowel and the stomach from any remaining air. I looked into the lesser sac to see how the sleeve was situating and it was situating well. There was no bleeding from the staple line, spleen, or short gastric vessels. The Mediflex retractor was removed, and the undersurface of the liver was inspected and there was no bleeding. The patient was placed in supine position. I closed the fascial defect of the 12 mm port site with a figure of eight #1 Polysorb suture. Then 100 cc 0.25 % Marcaine plain with 10 mg of Dexamethasone were used to infiltrate the fascial closure as well as all skin incisions. At this point, the abdomen was deflated, all ports were removed under direct vision, and no bleeding was noted from any of the port sites. The skin incisions were irrigated with saline and were closed with 4-0 absorbable monofilament sutures. Steri-Strips and OpSites were used to cover all incisions. The patient was extubated and was transferred in stable condition to the recovery room for further care. I was present and performed all whitney parts of the procedure. Ms. Jones was the budget assistant. There were no residents to assist with this case. Marcel Marinelli MD, PhD, FACS Surgeon: Jah Marinelli MD Anesthesia: GETA, local and other (TAP block) Was an Wad Impregnator used for this Procedure?: No Wad Impregnator: Mansi Jones Estimated blood loss (mL): 10 IV fluids (mL): 2,300 Urine output (mL): 0 (No Will to gravity) Pathology: other (Stomach) Condition: stable Disposition: PACU
--- NOTE | 2020-12-07 10:30 | P.DS_ITS ---
DS: Providers Provider Date of Service: 12/08/20 Date of admission: 12/06/20 19:48 Primary care physician: Elijah Bedolla MD DS: Diagnosis Discharge Diagnosis (1) S/P laparoscopic sleeve gastrectomy: Status: Acute DS: Medications Discharge Medications Home Medications: Home Medications Medication Instructions Recorded Confirmed metformin 500 mg tablet 500 mg PO BEDTIME 11/29/20 12/07/20 ondansetron HCl 4 mg tablet 4 mg PO Q12H PRN 12/07/20 12/07/20 (Zofran) Previous Rx's Medication Instructions Recorded pantoprazole 40 mg tablet,delayed 40 mg PO DAILY #30 tab 11/29/20 release sucralfate 100 mg/mL oral 10 ml PO BID #400 ml 11/29/20 suspension DS: Summary Hospital Course Hospital Course: ADMITTING DIAGNOSIS: morbid obesity, NIDDM DISCHARGE DIAGNOSIS: same, s/p laparoscopic sleeve gastrectomy PAST SURGICAL HISTORY: lap cholecystectomy, breast reduction PROCEDURE: upper endoscopy, laparoscopic sleeve gastrectomy and repair of diaphragmatic hernia hernia DISCHARGE SUMMARY: History of Present Illness: The patient is a 50 year-old woman with a BMI of 50.3 kg/m2 and associated co-m orbidities as described above. The patient had extensive work-up,lost 31.2 lbs preoperatively and was electively scheduled for laparoscopic, possible open sleeve gastrectomy and gastropexy. Risks and complications of the surgery were discussed with the patient in advance, particularly the possibility of , pulmonary embolism, anastomotic leak, bleeding, bowel injury, GERD, cardiac, renal or pulmonary complications. The patient understood all the risks and was in agreement with the surgical plan. Hospital Course: The patient underwent an uneventful laparoscopic sleeve gastrectomy with ga stropexy on the day of admission. Postoperatively, the patient was transferred to the surgical floor. The patient received IV Acetaminophen and IV dilaudid for pain control. Patient was started on bariatric phase 1 diet POD #0. On postoperative day one, the patient was feeling well without nausea, vomiting, fevers, or tachycardia. The patient had some mild incisional pain and the abdomen was soft. On the morning of postoperative day one, the patient was continued on 1 ounce of water or ice every half hour. During the day, the patient did fairly well, having some incisional pain, but able to ambulate adequately and to tolerate liquids well. Since the patient is doing well, we decided that the patient was ready to be discharged. The patient was given instructions to follow-up with me next week and to call my office for any fever over 101, persistent abdominal pain, nausea, vomiting, GERD, symptoms of DVT such as calf tenderness, or leg swelling, or pulmonary embolism such as chest pain or shortness of breath. The patient was also instructed to drink 40-60 ounces of liquids per day using the 1-ounce cups. The patient had been given prescriptions for Tylenol for pain, Zofran prn for nausea, and pantoprazole and carafate previously. The patient was encouraged to ambulate and use the incentive spirometer. The patient was allowed to shower, but no baths, and encouraged to stay active at home. All of these instructions were given to the patient personally. All questions were answered and the patient understood all instructions, the instructions were also given to the patient in print. Time Spent with Patient Time attestation: Total time spent providing and/or coordinating discharge services: Discharge coordination time: Less than 30 minutes Quality: Stroke Does the patient have a stroke diagnosis?: No Physical Exam Vital Signs: Vital Signs: Last Vital Signs Temp 99 F 12/07/20 10:22 Pulse 112 H 12/07/20 10:28 Resp 16 12/07/20 10:28 BP 118/48 L 12/07/20 10:28 Pulse Ox 96 12/07/20 10:28 Body Mass Index 42.2 DS: Data Data Completed and Pending Pending studies at discharge: Pending at discharge 12/07/20 09:34 Surgical [PTH] Routine Labs on day of discharge: Laboratory Results - last 24 hr 12/07/20 12/07/20 12/07/20 06:10 06:18 06:34 POC Glucose 106 Urine Test NEGATIVE COVID-19 ([facility]) Negative COVID-19 Clin Com See Note Discharge Plan Discharge Anticipated Discharge Date/Time: 12/08/20 10:27 Patient Disposition: Home, Self-Care Discharge Diagnosis: s/p sleeve gastrectomy Referrals: Elijah Bedolla MD [Primary Care Provider] - 1 Week Discharge Medications: Continued ondansetron HCl [Zofran] 4 mg tablet 4 mg PO Q12H PRN (Reason: Nausea And Vomiting) RF: 0 pantoprazole 40 mg tablet,delayed release (DR/EC) 40 mg PO DAILY Qty: 30 RF: 2 sucralfate 100 mg/mL suspension 10 ml PO BID Qty: 400 RF: 2 Held metformin 500 mg tablet 500 mg PO BEDTIME RF: 0 Hold Instructions: Discuss restarting this medication with Dr Marinelli Discharge Orders: Discharge Order (Routine); Ordered 12/08/20 Ordered By: Jah Marinelli Diet: other Activity on Discharge: No heavy lifting Stand Alone Forms: Patient Portal Discharge page Care Plan Goals: weight loss Health Concerns: morbid obesity Plan of Treatment: No tub baths, sex or returning to work until discussed at first post op appointment. No exercise, alcohol, tobacco or illegal drug use. Continue to use incentive spirometer hourly while awake. Walk in home for 5- 10 minutes every 2 hours during the first week. Continue phase 1 diet today and start phase 2 diet tomorrow morning. Follow all instructions in the bariatric handbook and call with any questions. The patient's medical history has been reviewed and they are considered low risk for post op DVT and therefore DVT prophylaxis is not considered necessary. Travel after surgery was reviewed. The patient has not disclosed any travel plans during the first 30 days after surgery and they have been advised that within the first 30 days after surgery any bus, plane, train or car travel over 2 hours in duration is contraindicated due to the possibility of developing blood clots from immobility. Any travel, needs to include periods of ambulation of 10 minutes in duration every 2 hours. The patient was instructed to discuss any plans for travel during this period with their bariatric surgeon. Assessment: stable, pod #1 s/p sleeve gastrectomy
[2020-12-07] MEDS: Famotidine/PF 20 MG/2 ML VIAL IVPUSH ×2 (10:32→21:31)
--- NOTE | 2020-12-07 10:39 | PM.PNGS ---
Subjective Subjective Date of Service: 12/08/20 Interval history: Patient has mild incisional pain but was able to ambulate and use the incentive spirometer. Is tolerating phase 1 bariatric diet. Physical Exam Vital Signs: Vital Signs: Last Vital Signs Temp 99 F 12/07/20 10:22 Pulse 107 H 12/07/20 10:37 Resp 18 12/07/20 10:37 BP 117/54 L 12/07/20 10:37 Pulse Ox 96 12/07/20 10:37 Body Mass Index 42.2 GI: Inspection: Yes normal to inspection, Yes incision (clean, dry and intact) and Yes obesity Extrem: Right lower extremity: normal to inspection (no calf tenderness) Left lower extremity: normal to inspection (no calf tenderness) Procedures Date of Service Date of Service: 12/08/20 Progress Note: A&P Assessment and plan (1) Morbid obesity: Status: Acute (2) DJD (degenerative joint disease): Status: Acute (3) Non-insulin dependent diabetes mellitus: Status: Acute (4) S/P laparoscopic sleeve gastrectomy: Status: Acute Assessment and Plan: s/p laparoscopic sleeve gastrectomy, lysis of adhesions and gastropexy Doing well Check am labs. If OK, will discharge home (5) Hepatomegaly: Status: Acute (6) Congenital intra-abdominal adhesions: Status: Acute (7) Steatosis, liver: Status: Acute (8) GERD (gastroesophageal reflux disease): Status: Acute Fall Risk Details Current Medications: Current Medications Generic Name Dose Route Start Last Admin Trade Name Freq PRN Reason Stop Dose Admin Famotidine 20 mg 12/07/20 10:30 12/07/20 10:32 Famotidine/Pf 20 Mg/2 Ml Vial IVPUSH 20 mg BID BIPIN Administration Fentanyl 25 mcg 12/07/20 07:42 Fentanyl Citrate/Pf 100 Mcg/2 Ml Vial IVPUSH Q5M PRN Pain, Moderate (Pain Scale 4-6 Hydromorphone HCl 0.25 mg 12/07/20 07:42 Hydromorphone Hcl 0.5 Mg/0.5 Ml Syringe IVPUSH Q5M PRN Pain, Severe (Pain Scale 7-10) Lactated Ringer's 1,000 mls @ 100 mls/hr 12/07/20 06:15 12/07/20 07:25 Lr IVCONT 100 mls/hr .Q10H BIPIN Administration Promethazine HCl 6.25 mg/ 50.25 mls @ 201 mls/hr 12/07/20 07:42 Sodium Chloride IV ONCE PRN Nausea and Vomiting Ondansetron HCl 4 mg 12/07/20 07:42 Ondansetron Hcl 4 Mg/2 Ml Vial IVPUSH ONCE PRN Nausea and Vomiting Time Spent With Patient Time: Total time spent is greater than 50% in coordination of care (as documented) at patient's floor/unit and/or counseling patient: Time with patient: less than 15 minutes Quality Stroke Does the patient have a stroke diagnosis?: No VTE Prior VTE?: No VTE Risk Level:: Surgical - moderate VTE Device Contraindication: N/A - Device Ordered VTE Drug Contraindication: Treatment Not Indicated
[2020-12-07 10:57] LABS: Hematocrit 38.4 % (37-47); Hemoglobin 12.6 g/dl (12.0-16.0)
[2020-12-07 11:30] LABS: Anion Gap 15 (12-20); Blood Urea Nitrogen 13 mg/dL (9-16); Calcium 9.2 mg/dL (8.4-10.2); Carbon Dioxide 21 mmol/L (22-29); Chloride 106 mmol/L (96-108); Creatinine Clr Calc Pharmacy 110.8; Estimated Glomerular Filt Rate > 60; Glucose Random 189 mg/dL (60-115); Potassium 4.1 mmol/L (3.3-5.1); Sodium 138 mmol/L (135-145)
[2020-12-07] MEDS: Metoclopramide HCl 10 MG/2 ML VIAL IVPUSH (11:33)
[2020-12-07] MEDS: Lactated Ringers 1,000 ML 125 ML IVCONT ×2 (12:11→19:48)
[2020-12-08] VITALS: BP 143/75; PULSE 79; RESP 16; TEMP 36.1; O2SAT 96
[2020-12-08] MEDS: Lactated Ringers 1,000 ML 125 ML IVCONT (02:34)
[2020-12-08 03:03] VITALS: BP 142/77; PULSE 81; RESP 16; TEMP 36.3; O2SAT 98
[2020-12-08 06:25] LABS: MANUAL DIFF FLAG NO
[2020-12-08 06:45] LABS: Basophils Percent Auto 0.1 % (0-2); Hematocrit 37.1 % (37-47); Hemoglobin 12.1 g/dl (12.0-16.0); Imm Gran Abs Auto 0.04 X10*3/uL (0.00-0.03); Imm Gran Pct Auto 0.4 % (0.0-0.4); Lymphocytes Absolute Auto 2.1 X10*3/uL (1.2-4.9); Lymphocytes Percent Auto 18.2 % (20-40); Mean Corpuscular HGB Conc 32.6 g/dl (31.0-35.0); Mean Corpuscular Hemoglobin 28.9 pg (27.0-33.0); Mean Corpuscular Volume 88.5 fL (80-98); Mean Platelet Volume 10.9 fL (9.4-12.3); Monocytes Absolute Auto 0.9 X10*3/uL (0.1-1.2); Monocytes Percent Auto 7.5 % (2-11); Neutrophils Absolute Auto 8.4 X10*3/uL (2.0-8.3); Neutrophils Percent Auto 73.8 % (45-73); Platelet Count 256 X10*3/uL (160-400); Red Blood Count 4.19 X10*6/uL (4.20-5.50); Red Cell Distribution Width 13.3 % (11.0-16.0); White Blood Count 11.4 X10*3/uL (4.8-10.8)
[2020-12-08 06:52] LABS: Anion Gap 10 (12-20); Blood Urea Nitrogen 7 mg/dL (9-16); Calcium 9.2 mg/dL (8.4-10.2); Carbon Dioxide 25 mmol/L (22-29); Chloride 108 mmol/L (96-108); Creatinine Clr Calc Pharmacy 121.9; Estimated Glomerular Filt Rate > 60; Glucose Random 104 mg/dL (60-115); Potassium 4.3 mmol/L (3.3-5.1); Sodium 139 mmol/L (135-145)
[2020-12-08 08:00] VITALS: BP 149/83; PULSE 105; RESP 18; TEMP 36.6; O2SAT 96
--- NOTE | 2020-12-08 08:16 | MHC.CM.PN ---
PATIENT IS INDEPENDENT WITH ADLS. PLAN IS DC TODAY WITH NO SERVICES. PATIENT IS ABLE TO ARRANGE TRANSPORT HOME.
[2020-12-08] MEDS: Famotidine/PF 20 MG/2 ML VIAL IVPUSH (08:42)
--- NOTE | 2020-12-08 13:51 | HO.POSTANES ---
Post Anesthesia Evaluation Post Anesthesia Evaluation Vital Signs: Vital Signs Temp Pulse Resp BP Pulse Ox 12/08/20 08:00 97.8 F 105 H 18 149/83 H 96 12/08/20 03:03 97.3 F 81 16 142/77 H 98 Anesthesia: General Endotracheal-GETA Mental Status: Awake Pain Control: Satisfactory Nausea/Vomiting: Mild (Nausea yesterday and security agent today. Resolved.) Hydration: Adequate Anesthesia-Related Issues: No Anes. Related Issues
== END 2020-12-08 10:04 | disposition home or self-care (01) | DRG 403 ==
LOC: HO.SSSA 12-07 10:30 → HO.S3 12-07 10:43
PROVIDERS: Nurse Practitioner; Physician Assistant; Admitting Provider Surgery; PCP Internal Medicine; Visit Provider Surgery
PROC: (CPT 43845; principal; 2020-12-07 07:30)
DX: E66.01 Morbid (severe) obesity due to excess calories (principal); K76.0 Fatty (change of) liver, not elsewhere classified; E11.9 Type 2 diabetes mellitus without complications; K21.9 Gastro-esophageal reflux disease without esophagitis; K66.0 Peritoneal adhesions (postprocedural) (postinfection); Z68.42 Body mass index [BMI] 45.0-49.9, adult; Z20.822 Contact with and (suspected) exposure to COVID-19; Z88.0 Allergy status to penicillin; M19.90 Unspecified osteoarthritis, unspecified site; Z88.2 Allergy status to sulfonamides; Z79.84 Long term (current) use of oral hypoglycemic drugs; Z79.899 Other long term (current) drug therapy
CPT/HCPCS: 36415; 80048; 80053; 80061; 81025; 82947; 83036; 83525; 84443; 85014; 85018; 85025; 85610; 85730; 86140; 86850; 86900; 86901; 87635; 88307; 88342; 99024; A4649; J0131; J1100; J1170; J1956; J2250; J2370; J2405; J2550; J2765

== ENCOUNTER → 2021-01-03 07:29 | Outpatient (BNVA) | payer OTHER, SELFPAY | PROVIDERS: PCP Internal Medicine; Visit Provider Surgery | DX: E66.01 Morbid (severe) obesity due to excess calories (principal); Z68.41 Body mass index [BMI] 40.0-44.9, adult | CPT/HCPCS: 99212 ==

== ENCOUNTER → 2021-02-05 07:39 | Outpatient (BNVA) | payer OTHER, SELFPAY | PROVIDERS: PCP Internal Medicine; Visit Provider Surgery | DX: E66.9 Obesity, unspecified (principal); Z68.39 Body mass index [BMI] 39.0-39.9, adult | CPT/HCPCS: 99212 ==

== ENCOUNTER 2021-02-09 16:15 | Outpatient (REF) | payer OTHER, SELFPAY ==
--- NOTE | ~2021-02-09 | MM_ITS ---
EXAMINATION: MM SCREENING DIGITAL BREAST TOMOSYNTHESIS, BILATERAL CLINICAL INFORMATION: Screening. Asymptomatic. The lifetime risk of breast cancer based on the Tyrer-Cuzick Model is 13%. COMPARISON: Mammography: 11/30/2019, 10/02/2018, 05/19/2017 TECHNIQUE: Digital breast tomosynthesis is performed in both the craniocaudal and mediolateral oblique views along with computer-aided detection (CAD). Synthesized 2D images are generated from the tomosynthesis. Additional bilateral exaggerated CC views are provided. FINDINGS: There are scattered areas of fibroglandular density (ACR BI-RADS breast composition Category b). There are no significant masses, abnormal calcifications, or other abnormalities. There is fine fibronodular parenchymal pattern similar to prior studies. Some scattered benign round, rim, and dermal calcifications are again seen. No significant changes. MM/MM tomosynthesis screening BI IMPRESSION: No mammographic evidence of malignancy. ASSESSMENT: BI-RADS 2: Benign RECOMMENDATION: Routine annual mammography screening. This patient's information was entered into a reminder system with a target due date for their next mammogram.
== END 2021-02-09 16:16 | disposition home or self-care (01) ==
LOC: HO.MAMMO 16:15
PROVIDERS: PCP Internal Medicine; Visit Provider Internal Medicine
DX: Z12.31 Encounter for screening mammogram for malignant neoplasm of breast (principal)
CPT/HCPCS: 77063; 77067

== ENCOUNTER → 2021-03-09 08:13 | Outpatient (BNVA) | payer OTHER, SELFPAY | PROVIDERS: PCP Internal Medicine; Visit Provider Surgery | DX: E66.9 Obesity, unspecified (principal); Z68.36 Body mass index [BMI] 36.0-36.9, adult | CPT/HCPCS: 99212 ==

== ENCOUNTER 2021-04-04 10:03 | Outpatient (REF) | payer OTHER, SELFPAY ==
[2021-04-04 13:43] LABS: MANUAL DIFF FLAG NO
[2021-04-04 13:54] LABS: Basophils Percent Auto 0.3 % (0-2); Eosinophils Absolute Auto 0.1 X10*3/uL (0.0-0.4); Hematocrit 41.8 % (37.0-47.0); Hemoglobin 13.8 g/dl (12.0-16.0); Imm Gran Abs Auto 0.02 X10*3/uL (0.00-0.03); Imm Gran Pct Auto 0.3 % (0.0-0.4); Lymphocytes Absolute Auto 2.1 X10*3/uL (1.2-4.9); Lymphocytes Percent Auto 30.5 % (20-40); Mean Corpuscular Hemoglobin 29.8 pg (27.0-33.0); Mean Corpuscular Volume 90.3 fL (80.0-98.0); Mean Platelet Volume 12.6 fL (9.4-12.3); Monocytes Absolute Auto 0.4 X10*3/uL (0.1-1.2); Monocytes Percent Auto 6.5 % (2-11); Neutrophils Absolute Auto 4.1 x10*3/uL (2.0-8.3); Neutrophils Percent Auto 61.4 % (45-73); Platelet Count 197 X10*3/uL (160-400); Red Blood Count 4.63 X10*6/uL (4.20-5.50); Red Cell Distribution Width 13.7 % (11.0-16.0); White Blood Count 6.8 X10*3/uL (4.8-10.8)
[2021-04-04 14:29] LABS: Alanine Aminotransferase 46 U/L (0-31); Albumin Level 4.1 g/dL (3.5-5.0); Alkaline Phosphatase 74 U/L (39-117); Anion Gap 13 (12-20); Aspartate Amino Transferase 19 U/L (5-31); Bilirubin Total 0.8 mg/dL (0.0-1.0); Blood Urea Nitrogen 12 mg/dL (9-16); Calcium 9.5 mg/dL (8.4-10.2); Carbon Dioxide 26 mmol/L (22-29); Chloride 105 mmol/L (96-108); Cholesterol 186 mg/dL; Estimated Glomerular Filt Rate > 60; Glucose Fasting 84 mg/dL (60-99); HDL Cholesterol 33 mg/dL; LDL Cholesterol Calculated 131 mg/dl; Potassium 4.3 mmol/L (3.3-5.1); Sodium 140 mmol/L (135-145); Total Protein 6.5 g/dL (6.5-8.0); Triglycerides 114 mg/dL
[2021-04-04 14:31] LABS: Estimated Average Glucose 103 mg/dL; Hemoglobin A1c % 5.2 %
[2021-04-04 14:50] LABS: Vitamin D 25-OH Total 68.9 ng/mL (>30)
[2021-04-04 15:47] LABS: Vitamin B12 865 pg/mL (200-900)
== END 2021-04-04 10:04 | disposition home or self-care (01) ==
LOC: HO.10HDL 10:03
PROVIDERS: Visit Provider Internal Medicine
DX: Z00.00 Encounter for general adult medical examination without abnormal findings (principal); K21.9 Gastro-esophageal reflux disease without esophagitis; E11.9 Type 2 diabetes mellitus without complications
CPT/HCPCS: 36415; 80053; 80061; 82306; 82607; 83036; 85025

== ENCOUNTER → 2021-04-11 07:58 | Outpatient (BNVA) | payer OTHER, SELFPAY | PROVIDERS: PCP Internal Medicine; Visit Provider Surgery ==

== ENCOUNTER → 2021-05-16 08:37 | Outpatient (BNVA) | payer OTHER, SELFPAY | PROVIDERS: PCP Internal Medicine; Visit Provider Surgery ==

== ENCOUNTER → 2021-07-06 08:19 | Outpatient (BNVA) | payer OTHER, SELFPAY | PROVIDERS: PCP Internal Medicine; Visit Provider Physician Assistant ==

== ENCOUNTER 2021-07-11 08:45 | Outpatient (REF) | payer OTHER, SELFPAY ==
[2021-07-11 09:21] LABS: MANUAL DIFF FLAG NO
[2021-07-11 09:40] LABS: Basophils Percent Auto 0.4 % (0-2); Eosinophils Absolute Auto 0.1 X10*3/uL (0.0-0.4); Eosinophils Percent Auto 0.7 % (0-4); Hematocrit 40.2 % (37.0-47.0); Hemoglobin 13.3 g/dl (12.0-16.0); Imm Gran Abs Auto 0.02 X10*3/uL (0.00-0.03); Imm Gran Pct Auto 0.2 % (0.0-0.4); Lymphocytes Absolute Auto 2.4 X10*3/uL (1.2-4.9); Lymphocytes Percent Auto 29.2 % (20-40); Mean Corpuscular HGB Conc 33.1 g/dl (31.0-35.0); Mean Corpuscular Hemoglobin 30.6 pg (27.0-33.0); Mean Corpuscular Volume 92.6 fL (80.0-98.0); Mean Platelet Volume 10.8 fL (9.4-12.3); Monocytes Absolute Auto 0.5 X10*3/uL (0.1-1.2); Monocytes Percent Auto 5.4 % (2-11); Neutrophils Absolute Auto 5.3 x10*3/uL (2.0-8.3); Neutrophils Percent Auto 64.1 % (45-73); Platelet Count 232 X10*3/uL (160-400); Red Blood Count 4.34 X10*6/uL (4.20-5.50); Red Cell Distribution Width 12.8 % (11.0-16.0); White Blood Count 8.3 X10*3/uL (4.8-10.8)
[2021-07-11 09:48] LABS: Estimated Average Glucose 105 mg/dL; Hemoglobin A1c % 5.3 %
[2021-07-11 10:39] LABS: Alanine Aminotransferase 13 U/L (0-31); Alkaline Phosphatase 64 U/L (39-117); Anion Gap 11 (12-20); Aspartate Amino Transferase 14 U/L (5-31); Bilirubin Total 0.6 mg/dL (0.0-1.0); Blood Urea Nitrogen 14 mg/dL (9-16); C Reactive Protein 0.36 mg/dL (< or = 0.50); Calcium 9.9 mg/dL (8.4-10.2); Carbon Dioxide 28 mmol/L (22-29); Chloride 106 mmol/L (96-108); Cholesterol 198 mg/dL; Estimated Glomerular Filt Rate > 60; Glucose Random 85 mg/dL (60-115); HDL Cholesterol 48 mg/dL; Iron 83 mcg/dL (30-160); LDL Cholesterol Calculated 131 mg/dl; Potassium 4.3 mmol/L (3.3-5.1); Sodium 141 mmol/L (135-145); Total Protein 6.2 g/dL (6.5-8.0); Triglycerides 98 mg/dL
[2021-07-11 11:21] LABS: Folate > 20.0 ng/mL (> or = 4.0); TSH reflex Free T4 0.56 uIU/mL (0.32-4.0); Vitamin B12 806 pg/mL (200-900); Vitamin D 25-OH Total 59.9 ng/mL (>30)
[2021-07-11 11:30] LABS: Percent Iron Saturation 30 % (15-50); Total Iron Binding Capacity 279 mcg/dL (228-428); Unsaturated Iron Binding 196 ug/dL
[2021-07-11 12:04] LABS: Ferritin 42 ng/mL (10-250); Insulin 9 uU/mL (2-29)
[2021-07-12 14:33] LABS: Calcium (PTHI) 9.8 mg/dL (8.6-10.2); PTHI 28 pg/mL (14-64)
[2021-07-14 03:42] LABS: Zinc 82 mcg/dL (60-130)
[2021-07-15 11:21] LABS: Vitamin B1 29 nmol/L (8-30)
[2021-07-17 19:42] LABS: Vitamin A 49 mcg/dL (38-98)
== END 2021-07-11 08:46 | disposition home or self-care (01) ==
LOC: HO.10HDL 08:45
PROVIDERS: Visit Provider Physician Assistant
DX: E66.9 Obesity, unspecified (principal); Z98.84 Bariatric surgery status
CPT/HCPCS: 36415; 80053; 80061; 82306; 82607; 82728; 82746; 83036; 83525; 83540; 83970; 84425; 84443; 84590; 84630; 85025; 86140

== ENCOUNTER → 2021-08-17 15:36 | Outpatient (BNVA) | payer OTHER, SELFPAY | PROVIDERS: PCP Internal Medicine; Referring Provider Internal Medicine; Visit Provider Physician Assistant | DX: E66.9 Obesity, unspecified (principal); Z98.84 Bariatric surgery status; Z71.3 Dietary counseling and surveillance | CPT/HCPCS: 99212 ==

== ENCOUNTER → 2021-12-13 14:55 | Outpatient (BNVA) | payer OTHER, SELFPAY | PROVIDERS: PCP Internal Medicine; Visit Provider Physician Assistant Surgical | DX: E66.3 Overweight (principal); Z98.84 Bariatric surgery status | CPT/HCPCS: 99212 ==

== ENCOUNTER 2021-12-14 08:46 | Outpatient (REF) | payer OTHER, SELFPAY ==
[2021-12-14 09:06] LABS: MANUAL DIFF FLAG NO
[2021-12-14 09:15] LABS: Basophils Percent Auto 0.4 % (0-2); Eosinophils Absolute Auto 0.1 X10*3/uL (0.0-0.4); Hematocrit 41.4 % (37.0-47.0); Hemoglobin 13.9 g/dl (12.0-16.0); Imm Gran Abs Auto 0.01 X10*3/uL (0.00-0.03); Imm Gran Pct Auto 0.2 % (0.0-0.4); Lymphocytes Absolute Auto 2.1 X10*3/uL (1.2-4.9); Lymphocytes Percent Auto 38.9 % (20-40); Mean Corpuscular HGB Conc 33.6 g/dl (31.0-35.0); Mean Corpuscular Hemoglobin 31.2 pg (27.0-33.0); Mean Platelet Volume 11.1 fL (9.4-12.3); Monocytes Absolute Auto 0.3 X10*3/uL (0.1-1.2); Neutrophils Absolute Auto 2.9 x10*3/uL (2.0-8.3); Neutrophils Percent Auto 52.5 % (45-73); Platelet Count 206 X10*3/uL (160-400); Red Blood Count 4.45 X10*6/uL (4.20-5.50); Red Cell Distribution Width 12.5 % (11.0-16.0); White Blood Count 5.5 X10*3/uL (4.8-10.8)
[2021-12-14 09:32] LABS: Estimated Average Glucose 97 mg/dL
[2021-12-14 10:16] LABS: Alanine Aminotransferase 15 U/L (0-31); Albumin Level 4.4 g/dL (3.5-5.0); Alkaline Phosphatase 48 U/L (39-117); Anion Gap 13 (12-20); Aspartate Amino Transferase 20 U/L (5-31); Bilirubin Total 0.8 mg/dL (0.0-1.0); Blood Urea Nitrogen 16 mg/dL (9-16); Calcium 9.5 mg/dL (8.4-10.2); Carbon Dioxide 26 mmol/L (22-29); Chloride 105 mmol/L (96-108); Cholesterol 242 mg/dL; Estimated Glomerular Filt Rate > 60; Glucose Random 89 mg/dL (60-115); HDL Cholesterol 70 mg/dL; Iron 70 mcg/dL (30-160); LDL Cholesterol Calculated 161 mg/dl; Percent Iron Saturation 19 % (15-50); Potassium 4.5 mmol/L (3.3-5.1); Sodium 139 mmol/L (135-145); Total Iron Binding Capacity 361 mcg/dL (228-428); Total Protein 6.9 g/dL (6.5-8.0); Triglycerides 55 mg/dL; Unsaturated Iron Binding 291 ug/dL
[2021-12-14 10:30] LABS: Ferritin 44 ng/mL (10-250); TSH reflex Free T4 0.72 uIU/mL (0.32-4.0); Vitamin D 25-OH Total 66.9 ng/mL (>30)
[2021-12-14 11:17] LABS: Folate > 20.0 ng/mL (> or = 4.0); Vitamin B12 1016 pg/mL (200-900)
[2021-12-14 12:04] LABS: Insulin 7 uU/mL (2-29)
[2021-12-17 17:32] LABS: Calcium (PTHI) 9.8 mg/dL (8.6-10.2); PTHI 46 pg/mL (16-77)
[2021-12-18 11:56] LABS: Zinc 85 mcg/dL (60-130)
[2021-12-19 17:27] LABS: Vitamin B1 25 nmol/L (8-30)
[2021-12-20 21:17] LABS: Vitamin A 68 mcg/dL (38-98)
== END 2021-12-14 08:47 | disposition home or self-care (01) ==
LOC: HO.LAB 08:46
PROVIDERS: PCP Internal Medicine; Visit Provider Physician Assistant Surgical
DX: Z98.84 Bariatric surgery status (principal)
CPT/HCPCS: 36415; 80053; 80061; 82306; 82607; 82728; 82746; 83036; 83525; 83540; 83970; 84425; 84443; 84590; 84630; 85025; 86140

== ENCOUNTER 2022-03-01 15:54 | Outpatient (REF) | payer OTHER, SELFPAY ==
--- NOTE | ~2022-03-01 | MM_ITS ---
EXAMINATION: MM SCREENING DIGITAL BREAST TOMOSYNTHESIS, BILATERAL CLINICAL INFORMATION: Screening. Asymptomatic. The lifetime risk of breast cancer based on the Tyrer-Cuzick Model is 8.9%. COMPARISON: Mammography: February 09, 2021 and studies dating back to March 13, 2016 TECHNIQUE: Digital breast tomosynthesis is performed in both the craniocaudal and mediolateral oblique views along with computer-aided detection (CAD). Synthesized 2D images are generated from the tomosynthesis. FINDINGS: There are scattered areas of fibroglandular density (ACR BI-RADS breast composition Category b). There are no new significant masses, abnormal calcifications, or other abnormalities. MM/MM tomosynthesis screening BI IMPRESSION: No significant changes from prior exam. ASSESSMENT: BI-RADS 1: Negative RECOMMENDATION: Routine annual mammography screening. This patient's information was entered into a reminder system with a target due date for their next mammogram.
== END 2022-03-01 15:55 | disposition home or self-care (01) ==
LOC: HO.MAMMO 15:54
PROVIDERS: PCP Internal Medicine; Visit Provider Internal Medicine
DX: Z12.31 Encounter for screening mammogram for malignant neoplasm of breast (principal)
CPT/HCPCS: 77063; 77067

== ENCOUNTER → 2022-03-20 15:25 | Outpatient (BNVA) | payer OTHER, SELFPAY | PROVIDERS: PCP Internal Medicine; Visit Provider Physician Assistant Surgical | DX: E66.3 Overweight (principal); L98.7 Excessive and redundant skin and subcutaneous tissue; Z68.29 Body mass index [BMI] 29.0-29.9, adult | CPT/HCPCS: 99212 ==

== ENCOUNTER → 2022-08-01 15:49 | Outpatient (BNVA) | payer OTHER, SELFPAY | PROVIDERS: PCP Internal Medicine; Visit Provider Physician Assistant Surgical | DX: E66.9 Obesity, unspecified (principal); L98.7 Excessive and redundant skin and subcutaneous tissue; Z98.84 Bariatric surgery status; Z68.31 Body mass index [BMI] 31.0-31.9, adult | CPT/HCPCS: 99212 ==

== ENCOUNTER 2022-08-02 08:26 | Outpatient (REF) | payer OTHER, SELFPAY ==
[2022-08-02 08:56] LABS: MANUAL DIFF FLAG NO
[2022-08-02 09:09] LABS: Basophils Percent Auto 0.6 % (0-2); Eosinophils Absolute Auto 0.1 X10*3/uL (0.0-0.4); Eosinophils Percent Auto 1.1 % (0-4); Hematocrit 43.2 % (37.0-47.0); Hemoglobin 14.4 g/dl (12.0-16.0); Imm Gran Abs Auto 0.02 X10*3/uL (0.00-0.03); Imm Gran Pct Auto 0.4 % (0.0-0.4); Lymphocytes Absolute Auto 1.9 X10*3/uL (1.2-4.9); Lymphocytes Percent Auto 36.6 % (20-40); Mean Corpuscular HGB Conc 33.3 g/dl (31.0-35.0); Mean Corpuscular Hemoglobin 30.8 pg (27.0-33.0); Mean Corpuscular Volume 92.5 fL (80.0-98.0); Mean Platelet Volume 10.5 fL (9.4-12.3); Monocytes Absolute Auto 0.2 X10*3/uL (0.1-1.2); Monocytes Percent Auto 4.6 % (2-11); Neutrophils Percent Auto 56.7 % (45-73); Platelet Count 236 X10*3/uL (160-400); Red Blood Count 4.67 X10*6/uL (4.20-5.50); Red Cell Distribution Width 11.9 % (11.0-16.0); White Blood Count 5.3 X10*3/uL (4.8-10.8)
[2022-08-02 09:16] LABS: Estimated Average Glucose 108 mg/dL; Hemoglobin A1c % 5.4 %
[2022-08-02 09:49] LABS: Alanine Aminotransferase 9 U/L (0-31); Alkaline Phosphatase 42 U/L (39-117); Anion Gap 12 (12-20); Aspartate Amino Transferase 14 U/L (5-31); Bilirubin Total 0.6 mg/dL (0.0-1.0); Blood Urea Nitrogen 12 mg/dL (9-16); C Reactive Protein 0.34 mg/dL (< or = 0.50); Calcium 9.3 mg/dL (8.4-10.2); Carbon Dioxide 23 mmol/L (22-29); Chloride 110 mmol/L (96-108); Cholesterol 197 mg/dL; Estimated Glomerular Filt Rate > 60; Glucose Random 91 mg/dL (60-115); HDL Cholesterol 50 mg/dL; Iron 73 mcg/dL (30-160); LDL Cholesterol Calculated 124 mg/dl; Percent Iron Saturation 23 % (15-50); Potassium 4.3 mmol/L (3.3-5.1); Sodium 141 mmol/L (135-145); Total Iron Binding Capacity 315 mcg/dL (228-428); Total Protein 6.4 g/dL (6.5-8.0); Triglycerides 116 mg/dL; Unsaturated Iron Binding 242 ug/dL
[2022-08-02 10:08] LABS: Ferritin 20 ng/mL (10-250); Folate 17.6 ng/mL (> or = 4.0); Insulin 6 uU/mL (2-29); TSH reflex Free T4 0.71 uIU/mL (0.32-4.0); Vitamin B12 647 pg/mL (200-900); Vitamin D 25-OH Total 90.6 ng/mL (>30)
[2022-08-05 12:48] LABS: Calcium (PTHI) 9.5 mg/dL (8.6-10.2); PTHI 37 pg/mL (16-77)
[2022-08-07 06:03] LABS: Zinc 102 mcg/dL (60-130)
[2022-08-07 17:39] LABS: Vitamin A 74 mcg/dL (38-98)
[2022-08-08 15:33] LABS: Vitamin B1 23 nmol/L (8-30)
== END 2022-08-02 08:27 | disposition home or self-care (01) ==
LOC: HO.LAB 08:26
PROVIDERS: PCP Internal Medicine; Visit Provider Physician Assistant Surgical
DX: Z98.84 Bariatric surgery status (principal)
CPT/HCPCS: 36415; 80053; 80061; 82306; 82607; 82728; 82746; 83036; 83525; 83540; 83970; 84425; 84443; 84590; 84630; 85025; 86140

== ENCOUNTER → 2022-10-24 15:51 | Outpatient (BNVA) | payer OTHER, SELFPAY | PROVIDERS: PCP Internal Medicine; Visit Provider Physician Assistant Surgical | DX: E66.9 Obesity, unspecified (principal); L98.7 Excessive and redundant skin and subcutaneous tissue; Z98.84 Bariatric surgery status; Z68.31 Body mass index [BMI] 31.0-31.9, adult | CPT/HCPCS: 99212 ==

== ENCOUNTER 2023-01-21 09:29 | Outpatient (AMB) | payer OTHER, SELFPAY ==
--- NOTE | 2023-01-21 09:33 | MHC.OFFVISWM ---
Intake VS Expanded 01/21/23 09:41 Height 5 ft 2 in Weight 191 lb BMI 34.9 BP 121/79 Blood Pressure Location Rt brachial Blood Pressure Position Sitting Pulse 88 Pulse Source Pulse Oximeter Temp 96.8 F Temperature Source Temporal Artery Scan Pulse Oximetry 97 Oxygen Delivery Method Room Air Body Fat 79.6 Body Fat Percentage 41.7 Free Fat Mass 111.4 Muscle Mass 105.6 Visceral Mass 10.0 Water Mass 41.6 BMR 1,544 Intake Visit Reasons: (OV) PO LSG 12/07/20 Allergies amoxicillin Allergy (Severe, Verified 01/21/23 09:36) hives penicillin V Allergy (Severe, Verified 01/21/23 09:36) hives Sulfa (Sulfonamide Antibiotics) Allergy (Severe, Verified 01/21/23 09:36) hives erythromycin base Allergy (Verified 01/21/23 09:36) Hives Penicillins Allergy (Verified 01/21/23 09:36) Hives sulfamethoxazole [From Bactrim] Allergy (Verified 01/21/23 09:36) Hives trimethoprim [From Bactrim] Allergy (Verified 01/21/23 09:36) Hives Medication List - Last Reconciled 01/21/23 by YOLANDA Kyle calcium citrate-vitamin D3 500-200 mg-unit tabs PO clotrimazole 1% 1 appl topical BID docusate sodium 100 mg PO DAILY inulin (Fiber Gummies) 2 grams PO BID kzeiflsjhbrf-rom-yyql-FA-vit K 45 mg iron- 800 mcg-120 mcg (Bariatric Multivitamins) caps PO DAILY norethindrone-e.estradiol-iron 1.5 mg-30 mcg (21)/75 mg (7) (Junel FE 1.5/30 (28)) 1 tab PO DAILY HPI HPI Comments History of Present Illness Details This?is a?52?yo female who is s/p LSG 12/07/2020. Presents for 2 year 2 month post op visit. Weight at last visit on 10/24/2022 was 178.2 pounds with a BMI of 31.6, weight today is 191 pounds, representing a 12.8 pound weight gain with a BMI today of 34.9.? No complaints of nausea, emesis, abdominal pain or reflux, or constipation. Present meal plan includes: One Premier shake, Armenian yogurt with granola if at work, and dinner of 3-4oz protein, 4oz veg if at home or may do drive-though if going to visit mom. May have sub sandwiches. thinks she gets enough protein but snacking on more carbs her mom had a stroke earlier this yearand continues to recover; cutting OT and PT, not making much progress Exercise routine includes: usually 300 calories burned per day, walking, or 30 min Peloton (300 elizabeth)- but hasn't had time, nonexistent due to visiting mom often Pt continues to have difficulty with excess skin which is heavy and affects activities of daily living. Has to keep clean and dry to prevent painful rashes and open areas in skin folds and uses clotrimazole which helps somewhat, and wear special clothing (compressive girdle) to avoid discomfort. If she sweats and sweat collects in skin fold, she notices an unpleasant odor. [facility] Medical History Adjustment disorder, unspecified Arthritis COVID-19 vaccine series completed Diabetes DJD (degenerative joint disease) Enlarged tongue GERD (gastroesophageal reflux disease) Hepatomegaly Morbid obesity Non-insulin dependent diabetes mellitus Steatosis, liver Vitamin B12 deficiency Vitamin D deficiency Surgical History History of sleeve gastrectomy History of dilatation and curettage Hx of bilateral breast reduction surgery Hx of cholecystectomy Family History Mother Diabetes Father Hyperlipidemia Son Colitis Daughter No problems noted. Social History (Updated 10/24/22 @ 15:57 by Jayde Oconnor CMA) Are you a primary primary care nurse to a significant other at home: Yes (2 children 21 yr old and 16 yr old) Do you presently have visiting nurse or other home services: No Alcohol intake: current Alcohol intake frequency: holidays/special occasions only Patient Tobacco Use Status: Never used Tobacco service: No Current occupational status: employed Assessment & Plan Assessment & Plan (1) Obesity: Code(s): E66.9 - Obesity, unspecified (2) S/P laparoscopic sleeve gastrectomy: Code(s): Z98.84 - Bariatric surgery status (3) Excess skin: Code(s): L98.7 - Excessive and redundant skin and subcutaneous tissue Plan We discussed her struggles in adhering to meal plan considering her current stress, and upward trend in weight over last few visits. Recommended using a shake or bar + some fruit for dinner if she often finds herself choosing takeout and doesn't have time to cook while on the go to visit her mom. If she is struggling with savory foods like chips we disucssed Quest or Jett brands which would be a better option for more protein. Encouraged resuming some exercise even just 10min/day on Peloton for now which could also help with stress relief/mental health. 2 year labs ordered. Continue clotrimazole ointment for rashes of excess skin. RTC 3-4 months, encouraged pt to reach out between visits with any concerns. Patient is obese and is not considered stable at this time. I spent a total of 30 minutes reviewing/updating records, examining the patient and counseling the patient on weight management as detailed above. Orders: Orders Lipid Panel Today Z98.84 - Bariatric surgery status Complete Blood Count Auto Diff Today Z98.84 - Bariatric surgery status Zinc Today Z98.84 - Bariatric surgery status Comprehensive Met. Panel Today Z98.84 - Bariatric surgery status Vitamin A Today Z98.84 - Bariatric surgery status Ferritin Today Z98.84 - Bariatric surgery status Insulin Today Z98.84 - Bariatric surgery status IRON PROFILE Today Z98.84 - Bariatric surgery status Vitamin B12 and Folate Today Z98.84 - Bariatric surgery status Vitamin B1 Today Z98.84 - Bariatric surgery status C Reactive Protein Today Z98.84 - Bariatric surgery status PTHI Today Z98.84 - Bariatric surgery status TSH reflex Free T4 Today Z98.84 - Bariatric surgery status Vitamin D 25-OH Total Today Z98.84 - Bariatric surgery status Hemoglobin A1c Today Z98.84 - Bariatric surgery status Coding Level of Care Code Est Pt Level 4 (77048) Diagnoses Obesity E66.9 S/P laparoscopic sleeve gastrectomy Z98.84 Excess skin L98.7
[2023-01-21 09:41] VITALS: BP 121/79; PULSE 88; TEMP 36; O2SAT 97; BMI 34.9
== END 2023-01-21 10:12 | disposition home or self-care (01) ==
PROVIDERS: PCP Internal Medicine; Visit Provider Physician Assistant Surgical
DX: E66.9 Obesity, unspecified (principal); Z68.34 Body mass index [BMI] 34.0-34.9, adult; Z98.84 Bariatric surgery status; L98.7 Excessive and redundant skin and subcutaneous tissue
CPT/HCPCS: 99214

== ENCOUNTER 2023-01-21 09:29 | Outpatient (REF) | payer OTHER, SELFPAY ==
[2023-01-21 10:22] LABS: MANUAL DIFF FLAG NO
[2023-01-21 10:37] LABS: Basophils Percent Auto 0.5 % (0-2); Eosinophils Absolute Auto 0.1 X10*3/uL (0.0-0.4); Eosinophils Percent Auto 1.1 % (0-4); Hematocrit 43.9 % (37.0-47.0); Hemoglobin 14.9 g/dl (12.0-16.0); Imm Gran Abs Auto 0.01 X10*3/uL (0.00-0.03); Imm Gran Pct Auto 0.2 % (0.0-0.4); Lymphocytes Absolute Auto 2.1 X10*3/uL (1.2-4.9); Lymphocytes Percent Auto 31.7 % (20-40); Mean Corpuscular HGB Conc 33.9 g/dl (31.0-35.0); Mean Corpuscular Hemoglobin 31.2 pg (27.0-33.0); Mean Corpuscular Volume 91.8 fL (80.0-98.0); Mean Platelet Volume 10.4 fL (9.4-12.3); Monocytes Absolute Auto 0.4 X10*3/uL (0.1-1.2); Monocytes Percent Auto 5.7 % (2-11); Neutrophils Percent Auto 60.8 % (45-73); Platelet Count 275 X10*3/uL (160-400); Red Blood Count 4.78 X10*6/uL (4.20-5.50); Red Cell Distribution Width 12.4 % (11.0-16.0); White Blood Count 6.5 X10*3/uL (4.8-10.8)
[2023-01-21 10:49] LABS: Estimated Average Glucose 103 mg/dL; Hemoglobin A1c % 5.2 % (<6.0)
[2023-01-21 11:04] LABS: Alanine Aminotransferase 9 U/L (0-31); Albumin Level 4.1 g/dL (3.5-5.0); Alkaline Phosphatase 46 U/L (39-117); Anion Gap 12 (12-20); Aspartate Amino Transferase 15 U/L (5-31); Bilirubin Total 0.5 mg/dL (0.0-1.0); Blood Urea Nitrogen 9 mg/dL (9-16); C Reactive Protein 0.38 mg/dL (< or = 0.50); Calcium 10.3 mg/dL (8.4-10.2); Carbon Dioxide 25 mmol/L (22-29); Chloride 108 mmol/L (96-108); Cholesterol 199 mg/dL (<200); Estimated Glomerular Filt Rate > 60; Glucose Random 95 mg/dL (60-115); HDL Cholesterol 55 mg/dL (>40); Iron 111 mcg/dL (30-160); LDL Cholesterol Calculated 122 mg/dL (<100); Percent Iron Saturation 34 % (15-50); Potassium 4.1 mmol/L (3.3-5.1); Sodium 141 mmol/L (135-145); Total Iron Binding Capacity 329 mcg/dL (228-428); Triglycerides 113 mg/dL (<150); Unsaturated Iron Binding 218 ug/dL
[2023-01-21 11:27] LABS: Ferritin 25 ng/mL (10-250); Insulin 9 uU/mL (2-29); TSH reflex Free T4 0.61 uIU/mL (0.32-4.0); Vitamin D 25-OH Total 85.4 ng/mL (>30)
[2023-01-21 11:30] LABS: Folate 16.7 ng/mL (> or = 4.0); Vitamin B12 820 pg/mL (200-900)
[2023-01-22 11:53] LABS: Calcium (PTHI) 9.9 mg/dL (8.6-10.4); PTHI 22 pg/mL (16-77)
[2023-01-24 06:18] LABS: Zinc 91 mcg/dL (60-130)
[2023-01-25 10:09] LABS: Vitamin B1 24 nmol/L (8-30)
[2023-01-27 17:19] LABS: Vitamin A 87 mcg/dL (38-98)
== END 2023-01-21 09:30 | disposition home or self-care (01) ==
LOC: HO.LAB 09:29
PROVIDERS: PCP Internal Medicine; Visit Provider Physician Assistant Surgical
DX: E66.9 Obesity, unspecified (principal); L98.7 Excessive and redundant skin and subcutaneous tissue; Z98.84 Bariatric surgery status
CPT/HCPCS: 36415; 80053; 80061; 82306; 82607; 82728; 82746; 83036; 83525; 83540; 83970; 84425; 84443; 84590; 84630; 85025; 86140; 99212

== ENCOUNTER 2023-03-07 15:44 | Outpatient (REF) | payer OTHER, SELFPAY | END 2023-03-07 15:45 | disposition home or self-care (01) | LOC: HO.MAMMO 15:44 | PROVIDERS: PCP Internal Medicine; Visit Provider Internal Medicine | DX: Z12.31 Encounter for screening mammogram for malignant neoplasm of breast (principal) | CPT/HCPCS: 77063; 77067 ==

== ENCOUNTER → 2023-03-07 16:00 | Outpatient (BNV) | payer OTHER, SELFPAY | PROVIDERS: PCP Internal Medicine; Visit Provider Radiology Diagnostic Radiology | DX: Z12.31 Encounter for screening mammogram for malignant neoplasm of breast (principal) | CPT/HCPCS: 77063; 77067 ==

== ENCOUNTER 2023-05-20 13:20 | Outpatient (AMB) | payer OTHER, SELFPAY ==
--- NOTE | 2023-05-20 13:22 | MHC.OFFVISWM ---
Intake VS Expanded 05/20/23 13:27 BP 127/77 Blood Pressure Location Rt brachial Blood Pressure Position Sitting Pulse 67 Pulse Source Pulse Oximeter Temp 96.7 F L Temperature Source Tympanic Pulse Oximetry 97 Oxygen Delivery Method Room Air Height 5 ft 2 in Weight 202 lb 9.6 oz BMI 37.1 Body Fat % 44.6 Body Fat Mass 90.2 Fat Free Mass 112.2 Visceral Fat Rating 12.0 Body Water % 39.4 Body Water Mass 79.8 Muscle Mass/Score 106.4 Basal Metabolic Rate/Score 1,573 Intake Visit Reasons: (OV) PO LSG 12/07/20 Allergies amoxicillin Allergy (Severe, Verified 05/20/23 13:26) hives penicillin V Allergy (Severe, Verified 05/20/23 13:26) hives Sulfa (Sulfonamide Antibiotics) Allergy (Severe, Verified 05/20/23 13:26) hives erythromycin base Allergy (Verified 05/20/23 13:26) Hives Penicillins Allergy (Verified 05/20/23 13:26) Hives sulfamethoxazole [From Bactrim] Allergy (Verified 05/20/23 13:26) Hives trimethoprim [From Bactrim] Allergy (Verified 05/20/23 13:26) Hives Medication List - Last Reconciled 05/20/23 by YOLANDA Kyle calcium citrate-vitamin D3 500-200 mg-unit tabs PO clotrimazole 1% 1 appl topical BID docusate sodium 100 mg PO DAILY inulin (Fiber Gummies) 2 grams PO BID igrkyednkrnl-tsb-yjqn-FA-vit K 45 mg iron- 800 mcg-120 mcg (Bariatric Multivitamins) caps PO DAILY HPI HPI Comments History of Present Illness Details This?is a?52?yo female who is s/p LSG 12/07/2020. Presents for 2.5 year post op visit. Weight at last visit on 01/21/2023 was 191 pounds with a BMI of 34.9, weight today is 202.6 pounds, representing an 11.6 pound weight gain with a BMI today of 37.1.? No complaints of nausea, emesis, abdominal pain or reflux, or constipation. Pt continues to help care for her mom, who lives at a rehab currently. Pt spends a few hours a day helping her. Pt's mom will need 24hour care once she gets home. I have no time for myself. Present meal plan includes: One Premier shake, Cypriot yogurt with granola if at wor k, and dinner of 3 -4oz protein, 4oz veg if at home or had recommended sh hugh or bar plus fr uit in evening if not at home contin ues to get dinners on the go Exerci se routine include s: usually 300 elizabeth ories burned per d ay, walking, or 30 min Peloton (300 elizabeth)- but hasn't h ad time, nonexist ent due to visiti ng mom often Pt c ontinues to have d ifficulty with exc ess skin which is heavy and affects activities of kati y living. Has to k eep clean and dry to prevent painful rashes and open a reas in skin folds and uses clotrima zole which helps s omewhat, and wear special clothing ( compressive girdle ) to avoid discomf ort. If she sweats and sweat collect s in skin fold, sh e notices an unple asant odor. [facility] Medical History Adjustment disorder, unspecified Arthritis COVID-19 vaccine series completed Diabetes DJD (degenerative joint disease) Enlarged tongue GERD (gastroesophageal reflux disease) Hepatomegaly Morbid obesity Non-insulin dependent diabetes mellitus Steatosis, liver Vitamin B12 deficiency Vitamin D deficiency Surgical History History of sleeve gastrectomy History of dilatation and curettage Hx of bilateral breast reduction surgery Hx of cholecystectomy Family History Mother Diabetes Father Hyperlipidemia Son Colitis Daughter No problems noted. 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 day care worker to a significant other at home: Yes (2 children 21 yr old and 16 yr old) Do you presently have visiting nurse or other home services: No Alcohol intake: current Alcohol intake frequency: holidays/special occasions only Comment: Aware of trip hazard Patient Tobacco Use Status: Never used Tobacco service: No Current occupational status: employed Physical Exam Vital Signs: Last Vital Signs Temp 96.7 F L 05/20/23 13:27 Pulse 67 05/20/23 13:27 BP 127/77 05/20/23 13:27 Pulse Ox 97 05/20/23 13:27 Oxygen Delivery Method Room Air 05/20/23 13:27 BMI result Body Mass Index 37.1 Assessment & Plan Assessment & Plan (1) Obesity: Code(s): E66.9 - Obesity, unspecified (2) S/P laparoscopic sleeve gastrectomy: Code(s): Z98.84 - Bariatric surgery status Plan Recommended new meal plan with adequate protein and options to try to avoid snacking on the wrong foods in evening: breakfast- Premier shake lunch- Cypriot yogurt dinner- bar or another yogurt, or 2 eggs plus fruit or veg after dinner snack- Quest or Jett chips, or bar or yogurt Continue clotrimazole ointment for any rashes of excess skin Pt will reach out via text between now and next appt with any questions/issues. Will follow up in 6 weeks for accountability. Patient is obese and is not considered stable at this time. I spent a total of 30 minutes reviewing/updating records, examining the patient and counseling the patient on weight management as detailed above. Coding Level of Care Code Est Pt Level 4 (01946) Diagnoses Obesity E66.9 S/P laparoscopic sleeve gastrectomy Z98.84
[2023-05-20 13:27] VITALS: BP 127/77; PULSE 67; TEMP 35.9; O2SAT 97; BMI 37.1
== END 2023-05-20 13:54 | disposition home or self-care (01) ==
PROVIDERS: PCP Internal Medicine; Visit Provider Physician Assistant Surgical
DX: E66.9 Obesity, unspecified (principal); Z68.37 Body mass index [BMI] 37.0-37.9, adult; Z90.3 Acquired absence of stomach [part of]; Z98.84 Bariatric surgery status
CPT/HCPCS: 99214

== ENCOUNTER → 2023-05-20 13:20 | Outpatient (BNVA) | payer OTHER, SELFPAY | PROVIDERS: PCP Internal Medicine; Visit Provider Physician Assistant Surgical | DX: E66.9 Obesity, unspecified (principal); Z98.84 Bariatric surgery status; Z68.37 Body mass index [BMI] 37.0-37.9, adult | CPT/HCPCS: 99212 ==

== ENCOUNTER 2023-07-10 12:43 | Outpatient (AMB) | payer OTHER, SELFPAY ==
--- NOTE | 2023-07-10 12:49 | MHC.OFFVISWM ---
Intake VS Expanded 07/10/23 12:56 BP 123/75 Blood Pressure Location Rt brachial Blood Pressure Position Sitting Pulse 80 Pulse Source Pulse Oximeter Temp 96.7 F L Pulse Oximetry 80 L Oxygen Delivery Method Room Air Height 5 ft 3 in Weight 208 lb 12.8 oz BMI 37.0 Body Fat % 45.6 Body Fat Mass 95.2 Fat Free Mass 113.6 Visceral Fat Rating 13.0 Body Water % 38.8 Body Water Mass 81.0 Muscle Mass/Score 107.8 Basal Metabolic Rate/Score 1,597 Intake Visit Reasons: (OV) PO LSG 12/07/20 Allergies amoxicillin Allergy (Severe, Verified 07/10/23 12:54) hives penicillin V Allergy (Severe, Verified 07/10/23 12:54) hives Sulfa (Sulfonamide Antibiotics) Allergy (Severe, Verified 07/10/23 12:54) hives erythromycin base Allergy (Verified 07/10/23 12:54) Hives Penicillins Allergy (Verified 07/10/23 12:54) Hives sulfamethoxazole [From Bactrim] Allergy (Verified 07/10/23 12:54) Hives trimethoprim [From Bactrim] Allergy (Verified 07/10/23 12:54) Hives HPI HPI Comments History of Present Illness Details This?is a?52?yo female who is s/p LSG 12/07/2020. Weight at last visit on 05/20/2022 was 202lbs, weight today is 208.8 pounds with a BMI today of 37.? No complaints of nausea, emesis, abdominal pain or reflux, or constipation. Pt's mom still in a rehab facility. Getting trained/prepared to be able to take her home. Present meal plan includes: breakfast- Premier shake lunch- Kiswahili yogurt dinner- bar or another yogurt, or 2 eggs plus fruit or veg after dinner snack- Quest or Jett chips, or bar or yogurt hasn't been following plan taking Ca, MVI Exercise routine includes: walking or Peloton previously, but hasn't had time Pt continues to have difficulty with excess skin which is heavy and affects activities of daily living. Has to keep clean and dry to prevent painful rashes and open areas in skin folds and uses clotrimazole which helps somewhat, and wear special clothing (compressive girdle) to avoid discomfort. If she sweats and sweat collects in skin fold, she notices an unpleasant odor. [facility] Medical History Adjustment disorder, unspecified Arthritis COVID-19 vaccine series completed Diabetes DJD (degenerative joint disease) Enlarged tongue GERD (gastroesophageal reflux disease) Hepatomegaly Morbid obesity Non-insulin dependent diabetes mellitus Steatosis, liver Vitamin B12 deficiency Vitamin D deficiency Surgical History History of sleeve gastrectomy History of dilatation and curettage Hx of bilateral breast reduction surgery Hx of cholecystectomy Family History Mother Diabetes Father Hyperlipidemia Son Colitis Daughter No problems noted. 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 laboratory animal care veterinarian to a significant other at home: Yes (2 children 21 yr old and 16 yr old) Do you presently have visiting nurse or other home services: No Alcohol intake: current Alcohol intake frequency: holidays/special occasions only Comment: Aware of trip hazard Patient Tobacco Use Status: Never used Tobacco service: No Current occupational status: employed Physical Exam Vital Signs: Last Vital Signs Temp 96.7 F L 07/10/23 12:56 Pulse 80 07/10/23 12:56 BP 123/75 07/10/23 12:56 Pulse Ox 80 L 07/10/23 12:56 Oxygen Delivery Method Room Air 07/10/23 12:56 BMI result Body Mass Index 37.0 Assessment & Plan Assessment & Plan (1) Overweight: Code(s): E66.3 - Overweight (2) Excess skin: Code(s): L98.7 - Excessive and redundant skin and subcutaneous tissue (3) S/P laparoscopic sleeve gastrectomy: Code(s): Z98.84 - Bariatric surgery status Plan Will set up appt with as pt is interested in help with managing stress/emotions related to food/eating and her current situation with her mom. No changes made to meal plan. Encouraged resuming exercise in some form, even just 10 min/day to start, for physical and mental health. RTC 3-4 months, will repeat labs at that time. Patient is obese and is not considered stable at this time. I spent a total of 30 minutes reviewing/updating records, examining the patient and counseling the patient on weight management as detailed above. Coding Level of Care Code Est Pt Level 4 (72000) Diagnoses Overweight E66.3 Excess skin L98.7 S/P laparoscopic sleeve gastrectomy Z98.84
[2023-07-10 12:56] VITALS: BP 123/75; PULSE 80; TEMP 35.9; O2SAT 80; BMI 37.0
== END 2023-07-10 13:31 | disposition home or self-care (01) ==
PROVIDERS: PCP Internal Medicine; Visit Provider Physician Assistant Surgical
DX: E66.3 Overweight (principal); Z68.37 Body mass index [BMI] 37.0-37.9, adult; Z90.3 Acquired absence of stomach [part of]; Z98.84 Bariatric surgery status; L98.7 Excessive and redundant skin and subcutaneous tissue
CPT/HCPCS: 99214

== ENCOUNTER → 2023-07-10 12:43 | Outpatient (BNVA) | payer OTHER, SELFPAY | PROVIDERS: PCP Internal Medicine; Visit Provider Physician Assistant Surgical | DX: Z48.815 Encounter for surgical aftercare following surgery on the digestive system (principal); E66.3 Overweight; L98.7 Excessive and redundant skin and subcutaneous tissue; Z98.84 Bariatric surgery status; Z68.37 Body mass index [BMI] 37.0-37.9, adult | CPT/HCPCS: 99212 ==

== ENCOUNTER 2023-11-03 07:28 | Day surgery (SDC) | payer OTHER, SELFPAY ==
[2023-11-03 07:41] VITALS: BMI 37.9
[2023-11-03 08:01] VITALS: BP 107/76; PULSE 79; RESP 16; TEMP 35.7; O2SAT 97
[2023-11-03 08:01] LABS: UPreg QC Valid YES; Urine Pregnancy NEGATIVE (NEGATIVE)
[2023-11-03] MEDS: Lactated Ringers 1,000 ML 80 ML IVCONT (08:07)
--- NOTE | 2023-11-03 08:43 | P.CONAN_ITS ---
HPI - Anesthesia Eval Consult details Narrative: for colonoscopy [facility] Active Problems Active Problems: All Active Problems Excess skin (Acute) Overweight (Acute) BMI 32.0-32.9,adult (Acute) BMI 34.0-34.9,adult (Acute) Constipation (Acute) BMI 36.0-36.9,adult (Acute) BMI 39.0-39.9,adult (Acute) Obesity (Acute) Steatosis, liver (Acute) Congenital intra-abdominal adhesions (Acute) Hepatomegaly (Acute) GERD (gastroesophageal reflux disease) (Acute) S/P laparoscopic sleeve gastrectomy (Acute) Abnormal EKG (Acute) Non-insulin dependent diabetes mellitus (Acute) DJD (degenerative joint disease) (Acute) Morbid obesity (Acute) Past Medical History Medical History Steatosis, liver Hepatomegaly Arthritis Diabetes GERD (gastroesophageal reflux disease) COVID-19 vaccine series completed Enlarged tongue Non-insulin dependent diabetes mellitus Adjustment disorder, unspecified Vitamin B12 deficiency Vitamin D deficiency DJD (degenerative joint disease) Morbid obesity Family History Family History Mother Diabetes Father Hyperlipidemia Son Colitis Daughter No problems noted. Family history of problems with anesthesia: No Surgical History Surgical History History of sleeve gastrectomy History of dilatation and curettage Hx of bilateral breast reduction surgery Hx of cholecystectomy History of Problems with Anesthesia: No Social History 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 complex care nurse practitioner to a significant other at home: Yes (2 children 21 yr old and 16 yr old) Do you presently have visiting nurse or other home services: No Alcohol intake: current Alcohol intake frequency: holidays/special occasions only Comment: Aware of trip hazard Patient Tobacco Use Status: Never used Tobacco Use of substances other than those prescribed or required for medical reasons: No Are you DNR?: No Advance Directives: No Advance Directives Information Provided: Yes service: No Current occupational status: employed Meds Allergies Allergy/AdvReac Type Severity Reaction Status Date / Time amoxicillin Allergy Severe hives Verified 07/10/23 12:54 penicillin V Allergy Severe hives Verified 07/10/23 12:54 Sulfa (Sulfonamide Allergy Severe hives Verified 07/10/23 12:54 Antibiotics) erythromycin base Allergy Hives Verified 07/10/23 12:54 Penicillins Allergy Hives Verified 07/10/23 12:54 sulfamethoxazole Allergy Hives Verified 07/10/23 12:54 [From Bactrim] trimethoprim [From Bactrim] Allergy Hives Verified 07/10/23 12:54 Active Medications: Current Medications Lactated Ringer's (Lr) 1,000 mls @ 80 mls/hr IVCONT .[id number] BIPIN Last Admin: 11/03/23 08:07 Dose: 80 mls/hr Sodium Biphosphate/Sodium Phosphate (Sodium Phosphate,Linn-Dibasic 133 Ml Enema) 133 ml DC ONCE PRN PRN Reason: Poor Colonoscopy Prep Results Home Medications ?Medication ?Instructions ?Recorded ?Confirmed ?Last Taken ?Type gpucqjvm-uuzubvqt-dwct 45 mg-folic 1 cap PO DAILY 07/06/21 11/03/23 11/01/23 History acid 800 mcg-vit K 120 mcg capsule (Bariatric Multivitamins) calcium citrate-vitamin D3 500 1 tab PO DAILY 01/21/23 11/03/23 11/01/23 History mg-200 unit chewable tablet Exam Height,Weight and Vital Signs: Height 5 ft 3 in Weight 97.069 kg Last Vital Signs Temp 96.2 F L 11/03/23 08:01 Pulse 79 11/03/23 08:01 Resp 16 11/03/23 08:01 BP 107/76 11/03/23 08:01 Pulse Ox 97 11/03/23 08:01 O2 Del Method Room Air 11/03/23 08:01 Pertinent Lab Results Pertinent Lab Results: Laboratory Tests 11/03/23 07:45 Urine Test NEGATIVE Airway Mallampati Class: III TM Dist: >3cm Neck ROM: Full Heart: rrr Lungs: cta Assessment and Plan Assessment Anesthesia Assessment: Anesthesia Plan Discussed and Chart Reviewed Final Anesthetic Review Family History of Problems with Anesthesia: No History of Problems with Anesthesia: No NPO: Yes ASA Class: III Final Preanesthetic Review: No Changes in Pt Med Stat, Meds/Allgs Chart Reviewed, Consent Obtained/Reviewed and Anes Risks/Benef Reviewed Patient Risk: Intermediate Procedure Risk: Low Anesthetic Plan Anesthetic Plan: MAC: Disposition: Standard PACU
--- NOTE | 2023-11-03 09:39 | P.BOP_ITS ---
Brief Operative Note Date of Service: 11/03/23 Pre-op diagnosis: Screening Post-op diagnosis: other (Diverticulosis) Procedure: Colonoscopy to the cecum Surgeon: Azar Simmons MD Anesthesia: MAC Was an Aerodynamic Consultant used for this Procedure?: No Estimated blood loss (mL): 0 Pathology: none sent Condition: stable Disposition: PACU
[2023-11-03 09:40] VITALS: BP 105/63; PULSE 81; RESP 16; TEMP 36.1; O2SAT 98
[2023-11-03 09:55] VITALS: BP 118/78; PULSE 79; RESP 16; TEMP 36.3; O2SAT 97
--- NOTE | 2023-11-03 10:24 | OP_ITS ---
DATE OF SERVICE: 11/03/2023 SURGEON: Azar Simmons MD INDICATIONS: The patient presents for evaluation of colorectal cancer screening. Full consent has been obtained from her for this, including risks of bleeding and perforation. PREOPERATIVE DIAGNOSIS: Colorectal cancer screening. POSTOPERATIVE DIAGNOSIS: PROCEDURE PERFORMED: Colonoscopy to cecum. ESTIMATED BLOOD LOSS: COMPLICATIONS: ANESTHESIA: Monitored anesthesia care. ASSISTANTS: SPECIMENS: POSTOPERATIVE DIAGNOSES: Colorectal cancer screening, occasional sigmoid diverticulosis, internal hemorrhoids. DESCRIPTION OF PROCEDURE: The patient was placed in the left lateral decubitus position. The digital rectal exam revealed no abnormalities. The Olympus video pediatric colonoscope was then entered into the rectum and advanced easily to the cecum. Once in the cecum, I did identify normal-appearing cecal pouch with appendiceal orifice and a normal-appearing ileocecal valve. The entire cecum and ileocecal valve appeared normal. The scope was slowly withdrawn assessing all mucosal surfaces carefully. Preparation was excellent. I did not visualize any sign of polyps, colitis, or angiodysplasias. There was a mild amount of sigmoid diverticulosis. In the rectum, scope was retroflexed, visualizing internal hemorrhoids, but no other pathology. The rectal mucosa appeared normal. The scope was straightened and withdrawn from the patient. She tolerated the procedure well and was returned to the recovery area in stable condition. IMPRESSION: 1. Sigmoid diverticulosis. 2. Internal hemorrhoids. PLAN: Given today's negative exam and negative family history of colorectal cancer, I would recommend a repeat colonoscopy in 10 years for further screening. She will, otherwise, see me on a p.r.n. basis. Azar Simmons MD RMW/MODL / [phone]
--- NOTE | 2023-11-03 12:51 | PC.NURSE ---
24 hour update documented on paper chart.
== END 2023-11-03 10:11 | disposition home or self-care (01) ==
PROVIDERS: Anesthesiology; PCP Internal Medicine; Visit Provider Internal Medicine
PROC: 0DJD8ZZ Inspection of Lower Intestinal Tract, Via Natural or Artificial Opening Endoscopic (ICD-10-PCS; CPT 45378; principal; 2023-11-03 08:40)
DX: Z12.11 Encounter for screening for malignant neoplasm of colon (principal); K57.30 Diverticulosis of large intestine without perforation or abscess without bleeding; K64.8 Other hemorrhoids; E11.9 Type 2 diabetes mellitus without complications; Z90.49 Acquired absence of other specified parts of digestive tract; Z98.84 Bariatric surgery status; Z88.1 Allergy status to other antibiotic agents; Z79.899 Other long term (current) drug therapy
CPT/HCPCS: 45378; 81025; J2704

== ENCOUNTER 2023-11-11 09:59 | Outpatient (AMB) | payer OTHER, SELFPAY ==
--- NOTE | 2023-11-11 10:07 | A.OFFVIS_ITS ---
VS Expanded 11/11/23 10:13 BP 128/84 Blood Pressure Location Rt brachial Blood Pressure Position Sitting Pulse 91 Pulse Source Pulse Oximeter Temp 97.6 F Temperature Source Temporal Artery Scan Pulse Oximetry 99 Oxygen Delivery Method Room Air Height 5 ft 3 in Weight 219 lb BMI 38.8 Body Fat % 47.2 Body Fat Mass 103.4 Fat Free Mass 115.6 Visceral Fat Rating 140 Body Water % 37.6 Body Water Mass 82.2 Muscle Mass/Score 109.6 Basal Metabolic Rate/Score 1,635 Intake Visit Reasons: OV PO LSG 12/07/20 Allergies amoxicillin Allergy (Severe, Verified 11/11/23 10:10) hives penicillin V Allergy (Severe, Verified 11/11/23 10:10) hives Sulfa (Sulfonamide Antibiotics) Allergy (Severe, Verified 11/11/23 10:10) hives erythromycin base Allergy (Verified 11/11/23 10:10) Hives Penicillins Allergy (Verified 11/11/23 10:10) Hives sulfamethoxazole [From Bactrim] Allergy (Verified 11/11/23 10:10) Hives trimethoprim [From Bactrim] Allergy (Verified 11/11/23 10:10) Hives Medication List - Last Reconciled 11/11/23 by YOLANDA Kyle calcium citrate-vitamin D3 500-200 mg-unit 1 tab PO DAILY clotrimazole 1% 1 appl topical BID docusate sodium 100 mg PO DAILY inulin (Fiber Gummies) 2 grams PO BID rsmrrqqhkzqp-ugl-asiy-FA-vit K 45 mg iron- 800 mcg-120 mcg (Bariatric Multivitamins) 1 cap PO DAILY HPI Comments Details: This?is a?52?yo female who is s/p LSG 12/07/2020. Weight gain of 10.2lbs since last OV in Jun.? No complaints of nausea, emesis, abdominal pain or reflux, or constipation. Pt's mom is living in her own condo after discharge from rehab, family helping to care for her. Pt still going daily to help. Pt was scheduled to see but had to cancel. Present meal plan includes: breakfast- Premier shake lunch- Nicaraguan yogurt dinner- bar or another yogurt, or 2 eggs plus fruit or veg after dinner snack- Quest or Jett chips, or bar or yogurt hasn't been following plan taking Ca, MVI Exercise routine includes: walking or Peloton previously, but hasn't had time Pt continues to have difficulty with excess skin which is heavy and affects activities of daily living. Has to keep clean and dry to prevent painful rashes and open areas in skin folds and uses clotrimazole which helps somewhat, and wear special clothing (compressive girdle) to avoid discomfort. If she sweats and sweat collects in skin fold, she notices an unpleasant odor. This has worsened now that it is summer. [facility] Medical History Steatosis, liver Hepatomegaly Arthritis Diabetes GERD (gastroesophageal reflux disease) COVID-19 vaccine series completed Enlarged tongue Non-insulin dependent diabetes mellitus Adjustment disorder, unspecified Vitamin B12 deficiency Vitamin D deficiency DJD (degenerative joint disease) Morbid obesity Surgical History History of sleeve gastrectomy History of dilatation and curettage Hx of bilateral breast reduction surgery Hx of cholecystectomy Family History Mother Diabetes Father Hyperlipidemia Son Colitis Daughter No problems noted. 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 other at home: Yes (2 children 21 yr old and 16 yr old) Do you presently have visiting nurse or other home services: No Alcohol intake: current Alcohol intake frequency: holidays/special occasions only Comment: Aware of trip hazard Patient Tobacco Use Status: Never used Tobacco service: No Current occupational status: employed Physical Exam Vital Signs: Last Vital Signs Temp 97.6 F 11/11/23 10:13 Pulse 91 11/11/23 10:13 BP 128/84 11/11/23 10:13 Pulse Ox 99 11/11/23 10:13 Oxygen Delivery Method Room Air 11/11/23 10:13 BMI result Body Mass Index 38.8 Assessment & Plan Assessment & Plan (1) Excess skin: Code(s): L98.7 - Excessive and redundant skin and subcutaneous tissue Category: Medical (2) Obesity: Code(s): E66.9 - Obesity, unspecified Category: Medical (3) S/P laparoscopic sleeve gastrectomy: Code(s): Z98.84 - Bariatric surgery status Category: Surgical Plan Pt willing to try a meal plan that is more bars/shakes based due to difficulty with weight loss. 2 premier shakes, 1 Fitcrunch bar, 1 meal of 2oz/4 forks protein, 4 forks salad/veg. Due for labs in the fall. Encouraged pt to text me between visits with any concerns. Will also set up appt with . RTC 3 months. Patient is obese and is not considered stable at this time. I spent a total of 30 minutes reviewing/updating records, examining the patient and counseling the patient on weight management as detailed above.
[2023-11-11 10:13] VITALS: BP 128/84; PULSE 91; TEMP 36.4; O2SAT 99; BMI 38.8
== END 2023-11-11 10:47 | disposition home or self-care (01) ==
PROVIDERS: PCP Internal Medicine; Visit Provider Physician Assistant Surgical
DX: L98.7 Excessive and redundant skin and subcutaneous tissue (principal); E66.9 Obesity, unspecified; Z68.38 Body mass index [BMI] 38.0-38.9, adult; Z98.84 Bariatric surgery status
CPT/HCPCS: 99214; G2211

== ENCOUNTER → 2023-11-11 09:59 | Outpatient (BNVA) | payer OTHER, SELFPAY | PROVIDERS: PCP Internal Medicine; Visit Provider Physician Assistant Surgical | DX: E66.9 Obesity, unspecified (principal); L98.7 Excessive and redundant skin and subcutaneous tissue; Z98.84 Bariatric surgery status; Z68.38 Body mass index [BMI] 38.0-38.9, adult | CPT/HCPCS: 99212 ==

== ENCOUNTER 2024-01-19 13:17 | Outpatient (AMB) | payer OTHER, SELFPAY ==
--- NOTE | 2024-01-19 13:33 | A.OFFVIS_ITS ---
VS Expanded 01/19/24 13:41 BP 135/79 Blood Pressure Location Rt brachial Blood Pressure Position Sitting Pulse 109 H Pulse Source Pulse Oximeter Temp 97.4 F Temperature Source Temporal Artery Scan Pulse Oximetry 97 Oxygen Delivery Method Room Air Height 5 ft 3 in Weight 221 lb 9.6 oz BMI 39.3 Body Fat % 48.6 Body Fat Mass 107.6 Fat Free Mass 114.0 Visceral Fat Rating 14.0 Body Water % 81.2 Body Water Mass 108.2 Muscle Mass/Score 108.2 Basal Metabolic Rate/Score 1,623 Intake Visit Reasons: OV PO LSG 12/07/20 Allergies amoxicillin Allergy (Severe, Verified 01/19/24 13:35) hives penicillin V Allergy (Severe, Verified 01/19/24 13:35) hives Sulfa (Sulfonamide Antibiotics) Allergy (Severe, Verified 01/19/24 13:35) hives erythromycin base Allergy (Verified 01/19/24 13:35) Hives Penicillins Allergy (Verified 01/19/24 13:35) Hives sulfamethoxazole [From Bactrim] Allergy (Verified 01/19/24 13:35) Hives trimethoprim [From Bactrim] Allergy (Verified 01/19/24 13:35) Hives Medication List - Last Reconciled 01/19/24 by YOLANDA Kyle calcium citrate-vitamin D3 500-200 mg-unit 1 tab PO DAILY clotrimazole 1% 1 appl topical BID docusate sodium 100 mg PO DAILY inulin (Fiber Gummies) 2 grams PO BID hfjxgwlghqcl-ybs-qmyd-FA-vit K 45 mg iron- 800 mcg-120 mcg (Bariatric Multivitamins) 1 cap PO DAILY HPI Comments Details: This?is a?53?yo female who is s/p LSG 12/07/2020. Presents for 3 year 1 month post op visit. Weight at last visit on 11/11/2023 was 219 pounds with a BMI of 38.8, weight today is 221.6 pounds, representing a 2.6 pound weight gain with a BMI today of 39.3.? No complaints of nausea, emesis, abdominal pain or reflux, or constipation. Pt's mom is living in her own condo after discharge from rehab, family helping to care for her. Pt still going daily to help. Present meal plan includes: 2 premier shakes, 1 Fitcrunch bar, 1 meal of 4 forks protein, 4 forks salad/veg loses motivation partway through the week Exercise routine includes: walking or Peloton previously, but hasn't had time- hasn't exercised since her mom had a stroke in September 2022 Pt continues to have difficulty with excess skin which is heavy and affects activities of daily living. Has to keep clean and dry to prevent painful rashes and open areas in skin folds and uses clotrimazole which helps somewhat, and wear special clothing (compressive girdle) to avoid discomfort. If she sweats and sweat collects in skin fold, she notices an unpleasant odor. This has worsened now that it is summer. [facility] Medical History Steatosis, liver Hepatomegaly Arthritis Diabetes GERD (gastroesophageal reflux disease) COVID-19 vaccine series completed Enlarged tongue Non-insulin dependent diabetes mellitus Adjustment disorder, unspecified Vitamin B12 deficiency Vitamin D deficiency DJD (degenerative joint disease) Morbid obesity Surgical History History of sleeve gastrectomy History of dilatation and curettage Hx of bilateral breast reduction surgery Hx of cholecystectomy Family History Mother Diabetes Father Hyperlipidemia Son Colitis Daughter No problems noted. 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 a significant other at home: Yes (2 children 21 yr old and 16 yr old) Do you presently have visiting nurse or other home services: No Alcohol intake: current Alcohol intake frequency: holidays/special occasions only Comment: Aware of trip hazard Patient Tobacco Use Status: Never used Tobacco service: No Current occupational status: employed Assessment & Plan Assessment & Plan (1) Obesity: Code(s): E66.9 - Obesity, unspecified Category: Medical (2) S/P laparoscopic sleeve gastrectomy: Code(s): Z98.84 - Bariatric surgery status Category: Surgical (3) Excess skin: Code(s): L98.7 - Excessive and redundant skin and subcutaneous tissue Category: Medical Plan Gave pt QR code to download [employer] cornelius. She will try a meal plan based off cornelius recommendations. Annual labs ordered. RTC 3 months. I spent a total of 30 minutes reviewing/updating records, examining the patient and counseling the patient on weight management as detailed above. Orders: Orders Insulin Today Z98.84 - Bariatric surgery status Hemoglobin A1c Today Z98.84 - Bariatric surgery status Complete Blood Count Auto Diff Today Z98.84 - Bariatric surgery status Lipid Panel Today Z98.84 - Bariatric surgery status IRON PROFILE Today Z98.84 - Bariatric surgery status Zinc Today Z98.84 - Bariatric surgery status C Reactive Protein Today Z98.84 - Bariatric surgery status Vitamin B1 Today Z98.84 - Bariatric surgery status Vitamin A Today Z98.84 - Bariatric surgery status TSH reflex Free T4 Today Z98.84 - Bariatric surgery status Ferritin Today Z98.84 - Bariatric surgery status Comprehensive Met. Panel Today Z98.84 - Bariatric surgery status Vitamin B12 and Folate Today Z98.84 - Bariatric surgery status Vitamin D 25-OH Total Today Z98.84 - Bariatric surgery status
[2024-01-19 13:41] VITALS: BP 135/79; PULSE 109; TEMP 36.3; O2SAT 97; BMI 39.3
== END 2024-01-19 14:02 | disposition home or self-care (01) ==
PROVIDERS: PCP Internal Medicine; Visit Provider Physician Assistant Surgical
DX: E66.9 Obesity, unspecified (principal); Z68.39 Body mass index [BMI] 39.0-39.9, adult; Z98.84 Bariatric surgery status; L98.7 Excessive and redundant skin and subcutaneous tissue
CPT/HCPCS: 99214

== ENCOUNTER → 2024-01-19 13:17 | Outpatient (BNVA) | payer OTHER, SELFPAY | PROVIDERS: PCP Internal Medicine; Visit Provider Physician Assistant Surgical | DX: E66.9 Obesity, unspecified (principal); L98.7 Excessive and redundant skin and subcutaneous tissue; Z98.84 Bariatric surgery status; Z68.39 Body mass index [BMI] 39.0-39.9, adult | CPT/HCPCS: 99212 ==

== ENCOUNTER 2024-01-24 09:01 | Outpatient (REF) | payer OTHER, SELFPAY ==
[2024-01-24 09:16] LABS: MANUAL DIFF FLAG NO
[2024-01-24 09:29] LABS: Basophils Percent Auto 0.5 % (0-2); Eosinophils Absolute Auto 0.1 X10*3/uL (0.0-0.4); Eosinophils Percent Auto 1.4 % (0-4); Hematocrit 41.1 % (37.0-47.0); Hemoglobin 14.1 g/dl (12.0-16.0); Imm Gran Abs Auto 0.04 X10*3/uL (0.00-0.03); Imm Gran Pct Auto 0.5 % (0.0-0.4); Lymphocytes Absolute Auto 2.4 X10*3/uL (1.2-4.9); Lymphocytes Percent Auto 27.8 % (20-40); Mean Corpuscular HGB Conc 34.3 g/dl (31.0-35.0); Mean Corpuscular Hemoglobin 30.8 pg (27.0-33.0); Mean Corpuscular Volume 89.7 fL (80.0-98.0); Mean Platelet Volume 9.5 fL (9.4-12.3); Monocytes Absolute Auto 0.6 X10*3/uL (0.1-1.2); Monocytes Percent Auto 7.2 % (2-11); Neutrophils Absolute Auto 5.4 x10*3/uL (2.0-8.3); Neutrophils Percent Auto 62.6 % (45-73); Platelet Count 304 X10*3/uL (160-400); Red Blood Count 4.58 X10*6/uL (4.20-5.50); Red Cell Distribution Width 12.2 % (11.0-16.0); White Blood Count 8.6 X10*3/uL (4.8-10.8)
[2024-01-24 09:57] LABS: Estimated Average Glucose 114 mg/dL; Hemoglobin A1c % 5.6 % (<6.0)
[2024-01-24 10:12] LABS: Alanine Aminotransferase 16 U/L (0-31); Alkaline Phosphatase 79 U/L (39-117); Anion Gap 11 (12-20); Aspartate Amino Transferase 17 U/L (5-31); Bilirubin Total 0.3 mg/dL (0.0-1.0); Blood Urea Nitrogen 8 mg/dL (9-16); C Reactive Protein 3.22 mg/dL (< or = 0.50); Calcium 9.7 mg/dL (8.4-10.2); Carbon Dioxide 27 mmol/L (22-29); Chloride 106 mmol/L (96-108); Cholesterol 195 mg/dL (<200); Estimated Glomerular Filt Rate > 60; Glucose Random 103 mg/dL (60-115); HDL Cholesterol 42 mg/dL (>40); Iron 42 mcg/dL (30-160); LDL Cholesterol Calculated 135 mg/dL (<100); Percent Iron Saturation 19 % (15-50); Potassium 4.3 mmol/L (3.3-5.1); Sodium 140 mmol/L (135-145); Total Iron Binding Capacity 217 mcg/dL (228-428); Total Protein 6.9 g/dL (6.5-8.0); Triglycerides 91 mg/dL (<150); Unsaturated Iron Binding 175 ug/dL
[2024-01-24 10:28] LABS: Ferritin 92 ng/mL (10-250); Insulin 17 uU/mL (2-29); TSH reflex Free T4 0.56 uIU/mL (0.32-4.0); Vitamin D 25-OH Total 61.1 ng/mL (>30)
[2024-01-24 10:38] LABS: Folate 18.8 ng/mL (> or = 4.0); Vitamin B12 1841 pg/mL (200-900)
[2024-01-28 00:24] LABS: Zinc 70 mcg/dL (60-130)
[2024-01-29 18:23] LABS: Vitamin A 38 mcg/dL (38-98)
[2024-01-30 14:22] LABS: Vitamin B1 17 nmol/L (8-30)
== END 2024-01-24 09:02 | disposition home or self-care (01) ==
LOC: HO.LAB 09:01
PROVIDERS: PCP Internal Medicine; Visit Provider Physician Assistant Surgical
DX: Z98.84 Bariatric surgery status (principal)
CPT/HCPCS: 36415; 80053; 80061; 82306; 82607; 82728; 82746; 83036; 83525; 83540; 84425; 84443; 84590; 84630; 85025; 86140

== ENCOUNTER 2024-03-18 15:48 | Outpatient (REF) | payer OTHER, SELFPAY ==
--- NOTE | ~2024-03-18 | MM_ITS ---
EXAMINATION: MM SCREENING DIGITAL BREAST TOMOSYNTHESIS, BILATERAL CLINICAL INFORMATION: Screening. Asymptomatic. COMPARISON: Mammography: Comparison is made with available priors TECHNIQUE: Digital breast mammography with tomosynthesis is performed in both the craniocaudal and mediolateral oblique views along with computer-aided detection (CAD). FINDINGS: There are scattered areas of fibroglandular density (ACR BI-RADS breast composition Category b). There are no significant masses, abnormal calcifications, or other abnormalities. MM/MM tomosynthesis screening BI IMPRESSION: No mammographic evidence of malignancy. ASSESSMENT: BI-RADS BI-RADS 1 - Negative RECOMMENDATION: Routine annual mammography screening. 1 year F/U This examination should not preclude the clinical evaluation of a suspicious palpable abnormality. This patient's information was entered into a reminder system with a target due date for their next mammogram. Electronically signed by: Liane Chiu DO 03/26/2024 04:08 PM COLLEEN
== END 2024-03-18 15:49 | disposition home or self-care (01) ==
LOC: HO.MAMMO 15:48
PROVIDERS: Absent Provider Obstetrics & Gynecology; PCP Internal Medicine; Visit Provider Internal Medicine
DX: Z12.31 Encounter for screening mammogram for malignant neoplasm of breast (principal)
CPT/HCPCS: 77063; 77067

== ENCOUNTER → 2024-03-18 16:15 | Outpatient (BNV) | payer OTHER, SELFPAY | PROVIDERS: Absent Provider Obstetrics & Gynecology; PCP Internal Medicine; Visit Provider Internal Medicine | DX: Z12.31 Encounter for screening mammogram for malignant neoplasm of breast (principal) | CPT/HCPCS: 77063; 77067 ==

== ENCOUNTER 2024-04-26 09:51 | Outpatient (AMB) | payer OTHER, SELFPAY ==
--- NOTE | 2024-04-26 09:54 | MHC.OFFVISWM ---
VS Expanded 04/26/24 10:04 BP 129/79 Blood Pressure Location Rt brachial Blood Pressure Position Sitting Pulse 96 Pulse Source Pulse Oximeter Temp 97.4 F Temperature Source Temporal Artery Scan Pulse Oximetry 99 Oxygen Delivery Method Room Air Height 5 ft 3 in Weight 225 lb 6.4 oz BMI 39.9 Body Fat % 48.7 Body Fat Mass 109.8 Fat Free Mass 115.6 Visceral Fat Rating 14.0 Body Water % 36.5 Body Water Mass 82.2 Muscle Mass/Score 109.6 Basal Metabolic Rate/Score 1,645 Intake Visit Reasons: OV PO LSG 12/07/20 Allergies amoxicillin Allergy (Severe, Verified 04/26/24 09:58) hives penicillin V Allergy (Severe, Verified 04/26/24 09:58) hives Sulfa (Sulfonamide Antibiotics) Allergy (Severe, Verified 04/26/24 09:58) hives erythromycin base Allergy (Verified 04/26/24 09:58) Hives Penicillins Allergy (Verified 04/26/24 09:58) Hives sulfamethoxazole [From Bactrim] Allergy (Verified 04/26/24 09:58) Hives trimethoprim [From Bactrim] Allergy (Verified 04/26/24 09:58) Hives Medication List - Last Reconciled 04/26/24 by YOLANDA Kyle calcium citrate-vitamin D3 500-200 mg-unit 1 tab PO DAILY clotrimazole 1% 1 appl topical BID docusate sodium 100 mg PO DAILY inulin (Fiber Gummies) 2 grams PO BID yswznzewqjvs-sbw-icjy-FA-vit K 45 mg iron- 800 mcg-120 mcg (Bariatric Multivitamins) 1 cap PO DAILY HPI Comments Details: This?is a?53?yo female who is s/p LSG 12/07/2020. Presents for 3 year 4 month post op visit. Weight gain of 4lbs since last OV 3 months ago.? No complaints of nausea, emesis, abdominal pain or reflux, or constipation. Continues to help care for her mom. Present meal plan includes: 2 premier shakes, 1 Fitcrunch bar, 1 meal of 4 forks protein, 4 forks salad/veg loses motivation partway through the week gave her Right BMI cornelius at last visit but pt reports intermediate through the week I give up Exercise routine includes: walking or Peloton previously, but hasn't had time- hasn't exercised since her mom had a stroke in September 2022 Pt continues to have difficulty with excess skin which is heavy and affects activities of daily living. Has to keep clean and dry to prevent painful rashes and open areas in skin folds and uses clotrimazole which helps somewhat, and wear special clothing (compressive girdle) to avoid discomfort. If she sweats and sweat collects in skin fold, she notices an unpleasant odor. [facility] Medical History Steatosis, liver Hepatomegaly Arthritis Diabetes GERD (gastroesophageal reflux disease) COVID-19 vaccine series completed Enlarged tongue Non-insulin dependent diabetes mellitus Adjustment disorder, unspecified Vitamin B12 deficiency Vitamin D deficiency DJD (degenerative joint disease) Morbid obesity Surgical History History of sleeve gastrectomy History of dilatation and curettage Hx of bilateral breast reduction surgery Hx of cholecystectomy Family History Mother Diabetes Father Hyperlipidemia Son Colitis Daughter No problems noted. 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 career guidance counselor to a significant other at home: Yes (2 children 21 yr old and 16 yr old) Do you presently have visiting nurse or other home services: No Alcohol intake: current Alcohol intake frequency: holidays/special occasions only Comment: Aware of trip hazard Patient Tobacco Use Status: Never used Tobacco service: No Current occupational status: employed Physical Exam Vital Signs: Last Vital Signs Temp 97.4 F 04/26/24 10:04 Pulse 96 04/26/24 10:04 BP 129/79 04/26/24 10:04 Pulse Ox 99 04/26/24 10:04 Oxygen Delivery Method Room Air 04/26/24 10:04 BMI result Body Mass Index 39.9 Assessment & Plan Assessment & Plan (1) Obesity: Code(s): E66.9 - Obesity, unspecified Category: Medical (2) S/P laparoscopic sleeve gastrectomy: Code(s): Z98.84 - Bariatric surgery status Category: Surgical Plan Discussed that pt has continued to gain weight over the last several visits. She is having a hard time following the meal plan. She declines an appt with at this time. I asked how we could best help her at today's visit and she was uncertain. I asked what helped her to be more successful in the past and she stated more time and more motivation. I encouraged her to focus on getting enough protein each day, at least 80g and to try to utliize fruits and veg from the healthy foods handout, to focus less on restriciton and more on how to get in enough adequate nutrition to support her body. Labs reviewed. RTC 4 months. I spent a total of 30 minutes reviewing/updating records, examining the patient and counseling the patient on weight management as detailed above.
[2024-04-26 10:04] VITALS: BP 129/79; PULSE 96; TEMP 36.3; O2SAT 99; BMI 39.9
== END 2024-04-26 10:30 | disposition home or self-care (01) ==
PROVIDERS: PCP Internal Medicine; Visit Provider Physician Assistant Surgical
DX: E66.9 Obesity, unspecified (principal); E66.812 Obesity, class 2; Z68.39 Body mass index [BMI] 39.0-39.9, adult; Z98.84 Bariatric surgery status
CPT/HCPCS: 99214; G2211

== ENCOUNTER → 2024-04-26 09:51 | Outpatient (BNVA) | payer OTHER, SELFPAY | PROVIDERS: PCP Internal Medicine; Visit Provider Physician Assistant Surgical | DX: E66.9 Obesity, unspecified (principal); Z71.3 Dietary counseling and surveillance; Z98.84 Bariatric surgery status | CPT/HCPCS: 99212 ==

== ENCOUNTER 2024-08-10 10:22 | Outpatient (AMB) | payer OTHER, SELFPAY ==
--- NOTE | 2024-08-10 10:24 | MHC.OFFVISWM ---
VS Expanded 08/10/24 10:25 BP 131/79 Blood Pressure Location Lt brachial Blood Pressure Position Sitting Pulse 88 Pulse Oximetry 97 Height 5 ft 3 in Weight 228 lb BMI 40.4 Body Fat % 48.0 Body Fat Mass 109.4 Fat Free Mass 118.6 Visceral Fat Rating 14.0 Body Water % 37.0 Body Water Mass 84.4 Muscle Mass/Score 112.6 Basal Metabolic Rate/Score 1,683 Intake Visit Reasons: OV PO LSG 12/07/20 *GLP-1* Allergies amoxicillin Allergy (Severe, Verified 08/10/24 10:25) hives penicillin V Allergy (Severe, Verified 08/10/24 10:25) hives Sulfa (Sulfonamide Antibiotics) Allergy (Severe, Verified 08/10/24 10:25) hives erythromycin base Allergy (Verified 08/10/24 10:25) Hives Penicillins Allergy (Verified 08/10/24 10:25) Hives sulfamethoxazole [From Bactrim] Allergy (Verified 08/10/24 10:25) Hives trimethoprim [From Bactrim] Allergy (Verified 08/10/24 10:25) Hives Medication List - Last Reconciled 08/10/24 by YOLANDA Kyle calcium citrate-vitamin D3 500-200 mg-unit 1 tab PO DAILY clotrimazole 1% 1 appl topical BID docusate sodium 100 mg PO DAILY inulin (Fiber Gummies) 2 grams PO BID fsqgujcxlsfj-uzg-ddjh-FA-vit K 45 mg iron- 800 mcg-120 mcg (Bariatric Multivitamins) 1 cap PO DAILY HPI Comments Details: This?is a?53?yo female who is s/p LSG 12/07/2020. Weight gain of 2.6lbs since last OV in Apr 2024.? No complaints of nausea, emesis, abdominal pain or reflux, or constipation. Present meal plan includes: 2 premier shakes, 1 Fitcrunch bar, 1 meal of 4 forks protein, 4 forks salad/veg loses motivation partway through the week gave her Right BMI cornelius previously but pt reports nursing home through the week I give up Exercise routine includes: walking or Peloton previously, but hasn't had time- hasn't exercised since her mom had a stroke in September 2022 Pt continues to have difficulty with excess skin which is heavy and affects activities of daily living. Has to keep clean and dry to prevent painful rashes and open areas in skin folds and uses clotrimazole which helps somewhat, and wear special clothing (compressive girdle) to avoid discomfort. If she sweats and sweat collects in skin fold, she notices an unpleasant odor. [facility] Medical History Steatosis, liver Hepatomegaly Arthritis Diabetes GERD (gastroesophageal reflux disease) COVID-19 vaccine series completed Enlarged tongue Non-insulin dependent diabetes mellitus Adjustment disorder, unspecified Vitamin B12 deficiency Vitamin D deficiency DJD (degenerative joint disease) Morbid obesity Surgical History History of sleeve gastrectomy History of dilatation and curettage Hx of bilateral breast reduction surgery Hx of cholecystectomy Family History Mother Diabetes Father Hyperlipidemia Son Colitis Daughter No problems noted. 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 wound care physician to a significant other at home: Yes (2 children 21 yr old and 16 yr old) Do you presently have visiting nurse or other home services: No Alcohol intake: current Alcohol intake frequency: holidays/special occasions only Comment: Aware of trip hazard Patient Tobacco Use Status: Never used Tobacco service: No Current occupational status: employed Physical Exam Vital Signs: Last Vital Signs Pulse 88 08/10/24 10:25 BP 131/79 08/10/24 10:25 Pulse Ox 97 08/10/24 10:25 BMI result Body Mass Index 40.4 Assessment & Plan Assessment & Plan (1) Obesity: Code(s): E66.9 - Obesity, unspecified Category: Medical (2) S/P laparoscopic sleeve gastrectomy: Code(s): Z98.84 - Bariatric surgery status Category: Surgical Plan Pt is interested in starting GLP1. Reviewed contraindications, discussed dosing. Discussed need for adequate protein intake while on GLP1s as well as frequent communication with our office. Pt will check in with me weekly and is aware that subsequent Rx will be dependent on frequent communication. Strongly encouraged pt follow high protein meal plan on [employer] cornelius. She loaded this on her phone at the time of our appointment- 2 shakes, 2 bars, 1 meal. RTC 6 weeks. Medications: New tirzepatide (weight loss) (Zepbound) for 4 weeks 2.5 mg (0.5 mL) subcut QWEEK 2 mL 0RF
[2024-08-10 10:25] VITALS: BP 131/79; PULSE 88; O2SAT 97; BMI 40.4
--- OUTSIDE RECORDS SUMMARY | 2024-08-10 12:15 | XMS_ITS ---
Author Organization [employer] [facility] Address [address] [place] [address] Care Team Providers Care Manager Scientific Name Role Phone YAMILEX GRIJALVA M.D. Primary Care Provider ASHA Michael Unavailable [phone] REASON FOR VISIT REFILL Encounters Encounter Location Date Provider Diagnosis [facility] [address] [address] 03/24/2023 ASHA NORIEGA Plan Of Treatment Next Appt Details Provider Name:ASHA Lai, 02/22/2025 03:30:00 PM, [address], [address], [place], [address], Progress Notes * YULIA BARRYDOB:1970 ( 52 yo F)Acc No.[id number]:03/24/2023 Patient:?BARRYYULIA :1970???Age:52 Y???Sex:Female Address:[address] [place] [address], [place], [address] * true * Date:? Generated for Printi jessica/Matt/eTransmitting on:?08/10/2024 12:15 PM EDT
--- OUTSIDE RECORDS SUMMARY | 2024-08-10 12:15 | XMS_ITS ---
Author Organization [facility] Address [address] [place] [address] Care Team Providers Care Machine Hamper Maker Name Role Phone Elijah Bedolla MD Primary Care Provider Azar Stubbs [phone] REASON FOR VISIT screening Problems Problem Type SNOMED Code ICD Code Onset Dates Problem Status W/U Status Risk Notes Problem Diverticular disease of colon (718056535) Diverticulosis of large intestine without perforation or abscess without bleeding (K57.30) Active confirmed Encounters Encounter Location Date Provider Diagnosis [facility] Outpatient [address] [place] [id number] 11/03/2023 Azar Simmons Encounter for scre ening [...] Information Progress Notes * YULIA BARRYDOB:1970 ( 53 yo F)Acc No.[id number]:11/03/2023 COLON WITH MAC Patient:?YULIA BARRY Provider:?Azar Simmons MD :1970???Age:52 Y???Sex:Female D ate:11/03/2023 Address:[address] [place] [address] , [place] Pcp:Elijah Bedolla MD Subjective: * Chief Complaints: * ???1. Screening. * Medical History:? Objective: * Vitals:? Assessment: * Assessment: 1.?Encounter for screening c olonoscopy - Z12.11 (Primary)???2.?Diverticulosis of large intestine without perforation or abscess without bleeding - K57.30???3.?Other hemorrhoids - K64.8??? Plan: * Treatment: * Procedure Codes:?62691 DIAGN OSTIC COLONOSCOPY * * The named appointment provid er may or may not be the originator of this progress note, and it is not deemed complete until electronically signed by the appointment provider. Sign off status: Pending * Provider:?Azar Simmons MD Date:? 024 Generated for Krystle lopez/Matt/eTransmitting on:?08/10/2024 12:15 PM EDT
--- OUTSIDE RECORDS SUMMARY | 2024-08-10 12:15 | XMS_ITS | Patient Health Record ---
Author Organization [facility] Address [address] [place] [address] Care Team Providers Care Drop Pit Worker Name Role Phone Elijah Bedolla MD Primary Care Provider Azar Stubbs Unavailable [phone] Allergies Allergen (clinical drug ingredient) Drug/Non Drug Allergy documented on EMR Reaction Allergy Type Onset Date Status erythromycin Erythromycin Unknown Drug Allergy A ctive sulfamethoxazole / trimethoprim Bactrim Unknown Drug Allergy Active Results Component Value Reference Range Notes Ur Preg Test Reviewed date:11/03/2023 10:24:08 PM Interpretation: Performing Lab:[facility], [address] [place] [id number] Notes/Report: Urine NEGATIVE NEGATIVE This test was developed to detect early . False negative results may occur after the 5th - 7th week of when using this test method. If clinically indicated, consider a serum hCG. Reason For Referral No Information Medications Medication SIG (Take, Route, Frequency, Duration) Notes Start Date End Date Status 1.5-30 MG-MCG TAKE 1 TABLET BY MOUTH EVERY DAY FOR 84 DAYS Oral for 84 Active Social History Tobacco Use: Social History Observation Description Date Details (start date - stop date) Never Smoker NA - NA Tobacco Use/Smoking Question Answer Notes Patient is a nonsmoker Alcohol Screen Question Answer Notes Did you have a drink contain ing alcohol in the past year? Yes How often did you have a dri nk containing alcohol in the past year? Never (0 point) How many drinks did you have on a typical day when you were drinking in the past year? 1 or 2 drinks (0 point) How often did you have 6 or more drinks on one occasion in the past year? Never (0 point) Points 0 Interpretation Negative Section Notes: Nonsmoker; no sig alcohol Problems Problem Type SNOMED Code ICD Code Onset Dates Problem Status W/U Status Risk Notes Problem Colon cancer screening (734734487) Colon cancer screening (Z12.11) Active confirmed Problem Pre-procedure evaluation check (607849366) Encounter for other preprocedural examination (Z01.818) Active confirmed Problem Diverticular disease of colon (074704290) Diverticulosis of large intestine without perforation or abscess without bleeding (K57.30) Active confirmed Encounters Encounter Location Date Provider Diagnosis [facility] [place] [address] [place] [phone] 11/03/2023 Azar Simmons Encounter for scre ening [...] hemorrhoids (ICD-10 - K64.8) Plan Of Treatment Future Test Test Name Order Date COLONOSCOPY 07/29/2023 Insurance Providers Payer Name Payer Address Payer Phone Subscriber Number Group Number Insured Name Patient Relationship to Insured Coverage Start Date Coverage End Date [facility] [address] [address] [place], [place] [phone] [id number] YULIA BARRY Self - patient is the insured Medical (General) History Medical History History ICD Code Denies [place],DM,CVA,Lung disease,renal dise ase Surgical History Surgery Date(Month/Year) Cholecystectomy BREAST REDUCTION Sleeve [place] [facility] [place]lost 85#
--- OUTSIDE RECORDS SUMMARY | 2024-08-10 12:16 | XMS_ITS ---
Author Organization [facility] Address [address] [place] [address] Care Team Providers Care Aircraft Structural Repairer Name Role Phone Elijah Bedolla MD Primary Care Provider Azar Stubbs Unavailable [phone] Allergies Allergen (clinical drug ingredient) Drug/Non Drug Allergy documented on EMR Reaction Allergy Type Onset Date Status erythromycin Erythromycin Unknown Drug Allergy A ctive sulfamethoxazole / trimethoprim Bactrim Unknown Drug Allergy Active REASON FOR VISIT Patient presents today for a COLON SCREENING Medications Medication SIG (Take, Route, Frequency, Duration) [...] Status Risk Notes Problem Colon cancer screening (332505827) Colon cancer screening (Z12.11) Active confirmed Problem Pre-procedure evaluation check (001861505) Encounter for other preprocedural examination (Z01.818) Active confirmed Vital Signs Temperature 97.5 degrees Fahrenheit 07/29/19 24 Blood pressure systolic 00 mm Hg 07/29/19 24 Blood pressure diastolic 00 mm Hg 024 Height 5 ft 3 in in 07/29/2023 Weight 213 lbs 07/29/2023 BMI 37.73 kg/m2 07/29/2023 Encounters Encounter Location Date Provider Diagnosis [facility] [address] [place] [address] 07/29/2023 Azar Simmons Colon cancer screeni ng Z12.11 and Encounter for other preprocedural examination Z01.818 Assessments Encounter Date Diagnosis (ICD Code) Assessment Notes Treatment Notes Treatment Clinical Notes Section Notes 07/29/2023 Colon cancer screening (ICD-10 - Z12.11) Overall, Arminda appears quite well. Given her age and excellent clinical appearance, I did recommend a colonoscopy for screening purposes. We did review the rationale for this in regard to colon cancer prevention. Full consent is obtained for this, including risks of bleeding and perforation. The procedure will be done with monitored anesthesia care. Arminda was comfortable with this plan. Thank you again for allowing me to participate in Arminda's care. I shall continue to keep you advised of her progress. 07/29/2023 Encounter for other preprocedural examination (ICD-10 - Z01.818) Overall, Arminda appears quite well. Given her age and excellent clinical appearance, I did recommend a colonoscopy for screening purposes. We did review the rationale for this in regard to colon cancer prevention. Full consent is obtained for this, including risks of bleeding and perforation. The procedure will be done with monitored anesthesia care. Arminda was comfortable with this plan. Thank you again for allowing me to participate in Arminda's care. I shall continue to keep you advised of her progress. Plan Of Treatment Future Test Test Name Order Date COLONOSCOPY 07/29/2023 Next Appt Details Follow Up: prn, Reason: Progress Notes * ARMINDA BARRYDOB:1970 ( 52 yo F)Acc No.[id number]:07/29/2023 Progress Notes Patient:?ARMINDA BARRY Provider:?Azar Simmons MD :1970???Age:52 Y???Sex:Female D ate:07/29/2023 Address[address] , [id number] Pcp:Elijah Bedolla MD Subjective: * Chief Complaints: * ???Patient presents today fo r a COLON SCREENING * HPI: ???incontinence:? I saw Arminda in the office today for evaluation of colorectal cancer screening. ?As you know, Arminda is a healthy 52-year-old female who presently feels very well. She enjoys a good appetite, without any significant heartburn or dysphagia. Her bowel movements have been regular, without any hematochezia nor melena. She denies any abdominal pain, jaundice, nor weight loss. She denies any known family history of colorectal cancer. Her son does have a history of ulcerative colitis. * ROS:?General/Constitutional:?Change in appetite?denies.?Chills?denies.?Fatigue?denies.?Ophthalmologic:?Comments?all negative.?ENT:?Comments?all negative.?Respiratory:?hemoptysis?denies.?Cough?denies.?Cardiovascular:?Chest pain?denies.?Orthopnea?denies.?Gastrointestinal:?Comments?See HPI for details.?Genitourinary:?Hematuria?denies.?Dysuria?denies.?Musculoskeletal:?Painful joints?denies.?Weakness?denies.?Skin:?Itching?denies.?Rash?denies.?Neurologic:?Headache?denies.?Seizures?denies.?Psychiatric:?Comments?all negative.? * Medical History:? * Surgical History:?Cholecyste ctomy BREAST REDUCTION Sleeve gastrectomy at [facility] [place] - lost 85# * Hospitalization/Major Diagno stic Procedure:?No Hospitalization History. * Family History:?Father: susana jett?Mother: alive, diagnosed with Diabetes.? No known hx of colon cancer Son has Ulcerative colitis. * Social History:?Tobacco Use:?Tobacco Use/Smoking?Patient is a?nonsmoker.?Drugs/Alcohol:?Alcohol Screen?Did you have a drink containing alcohol in the past year??Yes,?How often did you have a drink containing alcohol in the past year??Never (0 point),?How many drinks did you have on a typical day when you were drinking in the past year??1 or 2 drinks (0 point),?How often did you have 6 or more drinks on one occasion in the past year??Never (0 point),?Points?0,?Interpretation?Negative.?Miscellaneous:?Marital status: . 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 ???Nonsmoker; no sig alcohol. * Medications:?TakingJun 1.5-30 MG-MCG Tablet TAKE 1 TABLET BY MOUTH EVERY DAY FOR 84 DAYS Oral Medication List reviewed and reconciled with the patientTaking 1.5-30 MG-MCG Tablet TAKE 1 TABLET BY MOUTH EVERY DAY FOR 84 DAYS Oral Medication List reviewed and reconciled with the patient * Allergies:?ErythromycinBactr imyes[Allergies Verified] Objective: * Vitals:?Wt: 213 lbs, Ht: 5 f t 3 in, BMI:37.73 Index, BP: 00/00 mm Hg, Temp: 97.5. * Examination: ???General Examination: ?GENERAL APPEARANCE:?pleasant, well nourished, well developed, in no acute distress.?EYES:?sclera non-icteric.?ORAL CAVITY:?mucosa moist.?NECK/THYROID:?no cervical lymphadenopathy, neck supple.?SKIN:?nonjaundiced, no spider angiomata.?HEART:?S1, S2 normal.?LUNGS:?clear to auscultation bilaterally.?ABDOMEN:?normal bowel sounds, no guarding or rigidity, no guarding or rigidity, no masses palpable, soft, nontender, nondistended.?EXTREMITIES:?no edema.?NEUROLOGIC:?alert and oriented.? Assessment: * Assessment: 1.?Encounter for other prepr ocedural examination - Z01.818 (Primary)?2.?Colon cancer screening - Z12.11? Overall, Arminda appears quite w ell. Given her age and excellent clinical appearance, I did recommend a colonoscopy for screening purposes. We did review the rationale for this in regard to colon cancer prevention. Full consent is obtained for this, including risks of bleeding and perforation. The procedure will be done with monitored anesthesia care. Arminda was comfortable with this plan. Thank you again for allowing me to participate in Arminda's care. I shall continue to keep you advised of her progress. Plan: * Treatment: * Procedure Codes:?3017F COLOR ECTAL CA SCREEN DOC [id number] TOBACCO [id number] BP SCR NOT PRFRM REC REASON NOS * Preventive Medicine:? ??Counseling:?Care goal follow-up plan:?Above Normal BMI Follow-up?Giving encouragement to exercise,?BMI management provided?Yes.? * Follow Up:?prn * * Sign off status: Completed true * Provider:?Azar Simmons MD Date:? 024 Generated for Krystle lopez/Matt/Pinkyitting on:?08/10/2024 12:16 PM EDT History and Physical Notes * HPI (History of Present Illness) Category Sub-Category Detail Notes Category Not es incontinence I saw Arminda in the office today for evaluation of colorectal cancer screening. As you know, Arminda is a healthy 52-year-old female who presently feels very well. She enjoys a good appetite, without any significant heartburn or dysphagia. Her bowel movements have been regular, without any hematochezia nor melena. She denies any abdominal pain, jaundice, nor weight loss. She denies any known family history of colorectal cancer. Her son does have a history of ulcerative colitis. Examination Category Sub-Category Detail Notes Category Not es General Examination GENERAL APPEARANCE: pleasant , well nourished, well developed, in no acute distress HEAD: EYES: sclera non-icteric EARS: NOSE: THROAT: NECK/THYROID: no cervical lymphade nopathy, neck supple HEART: S1, S2 normal CHEST: LUNGS: clear to auscultatio n bilaterally ABDOMEN: normal bowel sounds, no guarding or rigidity, no guarding or rigidity, no masses palpable, soft, nontender, nondistended NEUROLOGIC: alert and oriented SKIN: nonjaundiced, no spi veronica angiomata EXTREMITIES: no edema PERIPHERAL PULSES: BACK: BREASTS: MUSCULOSKELETAL: MALE GENITOURINARY: LYMPH NODES: RECTAL EXAM: FEMALE GENITOURINARY: ORAL CAVITY: mucosa moist
--- OUTSIDE RECORDS SUMMARY | 2024-08-10 12:16 | XMS_ITS ---
Author Organization [employer] [facility] Address [address] [address] Care Team Providers Care Disintegrator Name Role Phone YAMILEX GRIJALVA M.D. 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 Yes with Men only Use protection? No AUDIT-C (Standard) Question Answer Notes Did you have a drink contain ing alcohol in the past year? Yes How often did you have six o r more drinks on one occasion in the past year? Never (0 point) How many drinks did you have on a typical day when you were drinking in the past year? 1 or 2 drinks (0 point) How often did you have a dri nk containing alcohol in the past year? Monthly or less (1 point) Points 1 Interpretation Negative Vital Signs Temperature 97.8 degrees Fahrenheit 02/16/20 24 Blood pressure systolic 110 mm Hg 02/16/20 24 Blood pressure diastolic 82 mm Hg 024 Height 63.5 in 02/16/2024 Weight 224 lbs 02/16/2024 BMI 39.05 kg/m2 02/16/2024 Encounters Encounter Location Date Provider Diagnosis [facility] [address] [place] [address] 02/16/2024 ASHA NORIEGA Encounter for gynecological examination (general) (routine) without abnormal findings Z01.419 ; Encounter for screening mammogram for malignant neoplasm of breast Z12.31 and Presence of (intrauterine) contraceptive device Z97.5 Assessments Encounter Date Diagnosis (ICD Code) Assessment Notes Treatment Notes Treatment Clinical Notes Section Notes 02/16/2024 Encounter for gynecological examination (general) (routine) without [...] to keep colon screening up to date. 02/16/2024 Encounter for screening mammogram for malignant neoplasm of breast (ICD-10 - Z12.31) 02/16/2024 Presence of (intrauterine) contraceptive device (ICD-10 - Z97.5) Continue Mirena until 10/2028 or she reaches menopause Plan Of Treatment Treatment Notes Assessment Notes [...] to keep colon screening up to date. Presence of (intrauterine) c ontraceptive device Continue Mirena until 10/2028 or she reaches menopause Pending Test Test Name Order Date MM Digital Screening Mammogram 3D 2023 Next Appt Details Follow Up: 1 Year, Reason: Y early Agricultural Technician Exam Provider Name:ASHA Lai, 02/22/2025 03:30:00 PM, [address] [employer], [address], [place], [address], Progress Notes * ARMINDA BARRYDOB:1970 ( 53 yo F)Acc No.[id number]:02/16/2024 PROGRESS NOTES Patient:ARMINDA BENITEZ Provider:?ASHA NORIEGA MD :1970???Age:53 Y???Sex:Female D ate:02/16/2024 Address:[address] [place] [address], [id number] Pcp:YAMILEX GRIJALVA M.D. 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 ?She has been in state of good health since her last exam. She has the following concerns: none ?She has received the Moderna Covid-19 vaccine. ?Relationship status: for 12 years. She is sexually active. Sexual partner(s): male. She does not wish to have STI testing. ?Menses: monthly, but she skipped a couple of months this summer, lasting 6-12 days, first 2 day heavy without gushing, then tapering - she will sometimes stop bleeding for 24 hours near the end, then have another day or 2 of spotting. She will change a regular pad once or twice daily. No intermenstrual bleeding. ?Contraception: vasectomy, Mirena for control of heavy menstrual bleeding . She stopped?OCPs to regulate irregular bleeding in 04/2023.?She does report vaginal dryness - uses lubricant that wears off quickly. She does not have hot flashes/night sweats. ?The patient has never had an abnormal pap smear. Her most recent pap smear was 12/23/22 - NIL, neg HR HPV. Due for cotesting in 2027. ?She has not been diagnosed with breast cancer. She does not have a family history of breast cancer. Her last mammogram was last year at [facility] -? in Feb. She is due end of February/early March ?She does not have a family history of colon cancer. She a has had a colonoscopy in October 2023, next due in 10 yrs. ?The patient does not exercise. 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 admits,?occasional constipation.?Bladder symptoms?denies.?Vaginal discharge, unusual?denies.?Vaginal itch or odor?denies.?weight or appetite changes?denies.?Chest pains, SOB?denies. depression? admits,?mild, denies HI/SI. She eats when she is down.?Breast:?Denies?Breast lump.?Denies?Nipple discharge.?Hematology:?Denies?Swollen glands.?Skin:?Patient denies?changing moles.?Psychiatric:?Denies?Anxiety.? * Medical History:? * Agricultural Technician History:?/ Para?09/2031.?Sexual activity?currently sexually active.?Last Pap Smear:?12/23/22 NIL, NEG HPV, 07/08/17 NIL, NEG HRHPV.?Mammogram:?03/07/23 Breast Tissue is Almost Entirely Fatty, 01/2022, 12/2020 @ [facility], 12/2019.?Abnormal Pap Smear:?no history of abnormal pap smears.?LMP and menses?02/06/24.?History of STD's:?none.? Control:?vasectomy, Mirena - inserted 10/2020.?Colonoscopy?10/2023.? * OB History:?Total pregnancies?5.?Total living children?2.?NVD?2.?(s)?3.? # 1:?elective terminations of (ETOP), T1, no complications.? # 2:?normal spontaneous vaginal delivery (), 05/14/1999, Ja, 6lb 7oz, no complications.? # 3?normal spontaneous vaginal delivery (), 10/28/04, Salma, 6lb 9oz, no complications.? # 4:?elective terminations of (ETOP), T1, no complications.? # 5:?elective terminations of (ETOP), T1, no complications.? * Surgical History:?Cholecyste ctomy 06/1999Breast Reduction 2006Gastric Sleeve 11/2020 * Hospitalization/Major Diagno stic Procedure:?2 Vaginal Deliveries * Family History:?Mother: susana yoo 70 yrs, Diabetes; CVA in 09/2022 - in rehab in 12/2022 - 10/2023. Getting eldercare services.?Father: alive 72 yrs, CVA in early 2021 - some residual.?Maternal Grand Mother: Heart Disease.? Brother, Xavi, 01/22/88 - well Denies family history of breast, colon, uterine or ovarian cancers. * Social History:?Tobacco Use:?Tobacco Use/Smoking?Are you a?nonsmoker ???Sexual History:?Sexual History?Had sex in the past 12 months (vaginal, oral, or anal)??Yes ?with?Men only ?Use protection??No ?Details of Sexual History?Are you sexually active??No ???Drugs/Alcohol:?Drugs?Have you used drugs other than those for medical reasons in the past 12 months??No ???Miscellaneous:?Children: yes, 2. ?Domestic violence: no. ?Exercise: yes, walking. ?Home smoke detector use: yes, smoke detectors, carbon monoxide detector. ?Housing: owns a home. ?Living with: spouse, children. ?Marital status: , Ja. ?Natural support system: yes. 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 ?Pets: none. ?Sexual abuse: no. ?Sexually active: yes, monogamous relationship. ?Travel outside of the [place]: no. ?Verbal abuse: no. ???Drug/Alcohol:?AUDIT-C (Standard)?Did you have a drink containing alcohol in the past year??Yes ?How often did you have six or more drinks on one occasion in the past year??Never (0 point) ?How many drinks did you have on a typical day when you were drinking in the past year??1 or 2 drinks (0 point) ?How often did you have a drink containing alcohol in the past year??Monthly or less (1 point) ?Points?1 ?Interpretation?Negative * Medications:?TakingDocusate Sodium 50 MG Capsule 1 capsule as needed Orally Once a day Multi For Her - Tablet as directed Orally Mirena (52 MG) 20 MCG/24HR Intrauterine Device as directed Intrauterine , Notes to Pharmacist: Inserted 10/16/20Taking Docusate Sodium 50 MG Capsule 1 capsule as needed Orally Once a day Taking Multi For Her - Tablet as directed Orally Taking Mirena (52 MG) 20 MCG/24HR Intrauterine Device as directed Intrauterine , Notes to Pharmacist: Inserted 10/16/20DiscontinuedJunel FE 1.5/30 1.5-30 MG-MCG Tablet TAKE 1 TABLET BY MOUTH EVERY DAY FOR 84 DAYS Medication List reviewed and reconciled with the patientDiscontinued 1.5-30 MG-MCG Tablet TAKE 1 TABLET BY MOUTH EVERY DAY FOR 84 DAYS Medication List reviewed and reconciled with the patient * Allergies:?Penicillin V Pota ssium: Hives - AllergyAmoxicillin: Hives - AllergyBactrim: Hives - AllergySulfur: Hives - AllergyErythromycin: hives - Allergy Objective: * Vitals:?Ht: 63.5 in, Wt:224l bs, BMI:39.05Index, BP:110/82mm Hg, Temp:97.8F. * Examination: ???General Examination: ?GENERAL APPEARANCE:?in no acute distress, well developed, well nourished, kitchen mechanic present in room.?HEAD:?normocephalic, atraumatic.?NECK/THYROID:?neck supple, full range of motion, thyroid normal.?LYMPH NODES:?no axillary or supraclavicular adenopathy.?SKIN:? normal, good turgor, no rashes, no suspicious lesions.?BREASTS:? normal, no dimpling, no discharge, no drainage, no masses palpable bilaterally, nontender.?ABDOMEN:? soft, non-tender, non distended without masses or hepatosplenomegay.?RECTAL:?deferred due to recent colonoscopy.?BACK:? no costovertebral angle tenderness.?FEMALE GENITOURINARY:?Vulva without lesions or masses, vagina pink without abnormal discharge, lesions or masses, cervix appears normal and is not tender to palpation, IUD threads seen, uterus is difficult to size due to habitus, mobile, nontender and anteverted, ovaries are not palpable.?NEUROLOGIC:? alert and oriented, gait normal.?PSYCH:? alert, oriented, cognitive function intact, cooperative with exam, good eye contact, mood/affect full range, speech clear.? Assessment: * Assessment: 1.?Encounter for gynecologic al examination (general) (routine) without abnormal findings - Z01.419 (Primary)???2.?Encounter for screening mammogram for malignant neoplasm of breast - Z12.31???3.?Presence of (intrauterine) contraceptive device - Z97.5??? Plan: * Treatment: 2.?Encounter for screening m ammogram for malignant neoplasm of breast?Imaging: MM Digital Screening Mammogram 3D 3.?Presence of (intrauterine ) contraceptive device? Notes: Continue Mirena until 10/2028 or she reaches menopause?? * Procedure Codes:? * Preventive Medicine:?Personal lubricants - [place], [place] Silk, Aloe Cadabra, Sliquid, Coconut oil ~~~~~~~~~~~~~ STRENGTH TRAINING ~~~~~~~~~~~~~ Anyone, at any fitness level, can and should add strength training to their routine. Strength training is an important part of an overall fitness program, mainly because lean muscle mass naturally diminishes with age. You'll increase the percentage of fat in your body if you don't do anything to replace the lean muscle you lose over time. Strength training can help you preserve and enhance your muscle mass (at any age!), develop strong bones and reduce the risk of osteoporosis, manage or lose weight and increase your metabolism to help you burn more calories. It will also improve your ability to do everyday activities and reduce symptoms of chronic conditions such as arthritis, back pain, obesity, heart disease and diabetes. Some research suggests that regular strength training may help improve thinking and learning skills. Don't be intimidated. You can strength train at home or in the gym, and you have plenty of options. You can rely on your body weight and do many exercises with little or no equipment, like pushups, pullups, planks and leg squats. Or you can go pro and choose to go with resistance tubing (a lightweight tubing that provides resistance when stretched), free weights like barbells and dumbbells, or weight machines at the gym. ~~~~~~~~~~~~~~~~~~~~~~~~~~~~~~~~~~~~~~~~~~~ SARCOPENIA AND THE IMPORTANCE OF STRENGTH TRAINING EXERCISE ~~~~~~~~~~~~~~~~~~~~~~~~~~~~~~~~~~~~~~~~~~~ What is sarcopenia? ~~~~~~~~~~~~ Sarcopenia refers to the process of losing skeletal muscle mass and strength. 'Sarco' is the Romanian word referring to flesh, and 'penia' means a reduction in amount. Thus, the word describes a progressive weakening of the body caused by a 'change in body compensation in favor of fat and at the expense of muscle.' Everyone, beginning around age 25, starts to lose muscle mass, though the actual symptoms of this loss do not usually begin showing up until around the age of 40 or so. The process begins really picking up speed after the age of 65. In fact, around the age of 40, most women will lose almost a half-pound of muscle every year and replace it with fat. The result of this gradual loss of muscle is an insidious weakening of the body, loss of balance, loss of confidence upon walking, and a reduced ability to recover from near falls. As we lose strength, we become more inactive. This makes sense, because if we have less muscle, it takes much more effort to move, and we fatigue more easily. But also, with loss of strength comes loss of balance and stability. The fear of falling keeps many people sedentary, and a sedentary lifestyle opens the door for chronic illness. ~~~~~~~~~~~~~~ Take back your muscle ~~~~~~~~~~~~~~ And now for great news: you can delay sarcopenia and even reverse it. How? By lifting weights. Even though you cannot grow new muscles cells to replace the ones you have already lost, you can develop the ones that you have left. In fact, you can become stronger than you ever have in your life by simply beginning a strength training program. No matter how old you are, it is not too late to start. Even patients in nursing homes have seen transformation. After strength training, bedridden patients were able to begin walking with walkers, walker-dependent patients graduated to canes, and so on. And no matter how young you are, it is not too early to start! By starting early, you can significantly delay the effects of sarcopenia. As you begin lifting weights, you will notice a transformation in your body. You will have more energy, you will perform everyday tasks with noticeably more ease and your clothes will begin sagging on you, because you will be building muscle and burning up the fat deposits. You will have greater balance and more confidence. And perhaps best of all is the insurance policy you pay premiums on every time you choose to lift, because you are laying a strong, solid foundation for your later years. You are laying up health, independence and the ability to live well, not just long. DON'T LET ANOTHER DAY GO BY THAT YOU ARE LOSING MUSCLE. Take it back, and get ready to feel better than you ever have! . * Follow Up:?1 Year (Reason: Y early Agricultural Technician Exam) * Images: Billing Information: * Visit Code:? 36648 Preventive Care Est Pt. Age 40-64. * Procedure Codes:? 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 She has been in state of good health since her last exam. She has the following concerns: none She has received the Moderna Covid-19 vaccine. Relationship status: for 12 years. She is sexually active. Sexual partner(s): male. She does not wish to have STI testing. Menses: monthly, but she skipped a couple of months this summer, lasting 6-12 days, first 2 day heavy without gushing, then tapering - she will sometimes stop bleeding for 24 hours near the end, then have another day or 2 of spotting. She will change a regular pad once or twice daily. No intermenstrual bleeding. Contraception: vasectomy, Mirena for control of heavy menstrual bleeding . She stopped OCPs to regulate irregular bleeding in 04/2023. She does report vaginal dryness - uses lubricant that wears off quickly. She does not have hot flashes/night sweats. The patient has never had an abnormal pap smear. Her most recent pap smear was 12/23/22 - NIL, neg HR HPV. Due for cotesting in 2027. She has not been diagnosed with breast cancer. She does not have a family history of breast cancer. Her last mammogram was last year at [facility] - in Feb. She is due end of February/early March She does not have a family history of colon cancer. She a has had a colonoscopy in October 2023, next due in 10 yrs. The patient does not exercise. Examination Category Sub-Category Detail Notes Category Not es General Examination GENERAL APPEARANCE: in no ac grindstone distress, well developed, well nourished, kitchen mechanic present in room HEAD: normocephalic, atrau matic [...] no axillary or supra clavicular adenopathy RECTAL: deferred due to rece nt colonoscopy PSYCH: alert, oriented, cog nitive function intact, cooperative with exam, good eye contact, mood/affect full range, speech clear FEMALE GENITOURINARY: Vulva without lesi ons or masses, vagina pink without abnormal discharge, lesions or masses, cervix appears normal and is not tender to palpation, IUD threads seen, uterus is difficult to size due to habitus, mobile, nontender and anteverted, ovaries are not palpable
--- OUTSIDE RECORDS SUMMARY | 2024-08-10 12:16 | XMS_ITS ---
Author Organization [facility] Address [address] [address] Care Team Providers Care Oral Health Therapist Name Role Phone YAMILEX GRIJALVA M.D. 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 Encounters Encounter Location Date Provider Diagnosis [facility] [address] [place] [id number] 12/25/2023 ASHA NORIEGA Encounter for gynecological examination [...] Follow Up: 1 Year, Reason: Y early Muffler Mechanic Exam Provider Name:ASHA Stefania Lai, 02/22/2025 03:30:00 PM, [address] [employer], [address], [place], [address], Progress Notes * BARRYARMINDADOB:1970 ( 53 yo F)Acc No.[id number]:12/25/2023 PROGRESS NOTES Patient:?BARRY ARMINDA Provider:?ASHA NORIEGA MD :1970???Age:53 Y???Sex:Female D ate:12/25/2023 Address:[address] [place] [address], [facility] Pcp:YAMILEX GRIJALVA M.D. Subjective: * Chief Complaints: * ???1. 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 ?She has been in state of good health since her last exam. She has the following concerns: ?She has received the Moderna Covid-19 vaccine. ?Relationship status: * for 12 years. She is sexually active. Sexual partner(s): male. She does not wish to have STI testing. ?Menses: *monthly, lasting 7-10 days, days 3-4 heavy, then tapering. She will saturate a super tampon 4x/day on the heavy days. No intermenstrual bleeding. ?Contraception: *vasectomy, Mirena for control of heavy menstrual bleeding, on OCPs to regulate irregular bleeding. She states she no longer has diabetes. ?She does *not report vaginal dryness. She does *not have hot flashes/night sweats. ?The patient has never had an abnormal pap smear. Her most recent pap smear was 12/23/22 - NIL, neg HR HPV. Due for cotesting in 2027. ?She has not been diagnosed with breast cancer. She does *not have a family history of breast cancer. Her last mammogram was *last year at [facility] - usually in Jan/Feb. ?She does *not have a family history of colon cancer. She a has *not yet had a colonoscopy. ?The patient does *not exercise. She plans to get back to it. 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 * Medical History:? Objective: * Vitals:? * Examination: ???General Examination: ?GENERAL APPEARANCE:?in no acute distress, well developed, well nourished, sewage reticulation drafting officer present in room.?HEAD:?normocephalic, atraumatic.?NECK/THYROID:?neck supple, full range of motion, thyroid normal.?LYMPH NODES:?no axillary or supraclavicular adenopathy.?SKIN:? normal, good turgor, no rashes, no suspicious lesions.?BREASTS:? normal, no dimpling, no discharge, no drainage, no masses palpable bilaterally, nontender.?ABDOMEN:? soft, non-tender, non distended without masses or hepatosplenomegay.?RECTAL:? normal tone, no masses palpable.?BACK:? no costovertebral angle tenderness.?FEMALE GENITOURINARY:?Vulva without lesions [...] mammogram for malignant neoplasm of breast - Z12.31???3.?Encounter for screening for infections with a predominantly sexual mode of transmission - Z11.3??? Plan: * Treatment: 2.?Encounter for screening m ammogram for malignant neoplasm of breast?Imaging: MM Digital Screening Mammogram 3D * Follow Up:?1 Year (Reason: Y early Muffler Mechanic Exam) * Images: Billing Information: * Visit Code:? 46290 Preventive Care Est Pt. Age 40-64. * Procedure Codes:? 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 She has been in state of [...] Her last mammogram was *last year at [facility] - usually in Jan/Feb. She does *not have a family history of colon cancer. She a has *not yet had a colonoscopy. The patient does *not exercise. She plans to get back to it. Examination Category Sub-Category Detail Notes Category Not es General Examination GENERAL APPEARANCE: in no ac cleopatra distress, well developed, well nourished, sewage reticulation drafting officer present in room HEAD: normocephalic, atrau matic [...]
== END 2024-08-10 10:48 | disposition home or self-care (01) ==
LOC: HO.HBS 10:22
PROVIDERS: PCP Internal Medicine; Visit Provider Physician Assistant Surgical
DX: E66.813 Obesity, class 3 (principal); Z68.41 Body mass index [BMI] 40.0-44.9, adult; Z90.3 Acquired absence of stomach [part of]; Z98.84 Bariatric surgery status
CPT/HCPCS: 99214; G2211

== ENCOUNTER → 2024-08-10 10:22 | Outpatient (BNVA) | payer OTHER, SELFPAY | PROVIDERS: PCP Internal Medicine; Visit Provider Physician Assistant Surgical | DX: E66.9 Obesity, unspecified (principal); Z68.41 Body mass index [BMI] 40.0-44.9, adult | CPT/HCPCS: 99212 ==

== ENCOUNTER 2024-09-20 15:48 | Outpatient (AMB) | payer OTHER, SELFPAY ==
--- OUTSIDE RECORDS SUMMARY | 2024-09-20 15:51 | XMS_ITS ---
Author Organization [facility] Address [address] [facility] [address] [place] [address] Care Team Providers Care Toby Maker Name Role Phone YAMILEX GRIJALVA M.D. Primary Care Provider ASHA Micahel Unavailable [phone] REASON FOR VISIT REFILL Encounters Encounter Location Date Provider Diagnosis [facility] [address] [address] 03/24/2023 ASHA NORIEGA Plan Of Treatment Next Appt Details Provider Name:ASHA Lai, 02/22/2025 03:30:00 PM, [address] [facility], [address], [place], [address], Progress Notes * YULIA BARRYDOB:1970 ( 52 yo F)Acc No.[id number]:03/24/2023 Patient:?BARRYYULIA :1970???Age:52 Y???Sex:Female Address:[address] [place] [address], [place], [address] * true * Date:? Generated for Print[employer] jessica/Matt/eTransmitting on:?09/20/2024 03:51 PM EDT
--- OUTSIDE RECORDS SUMMARY | 2024-09-20 15:51 | XMS_ITS | Data Portability ---
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 Plan of Treatment Reminders Order Date Submit Date Provider Last Modified By Organization Details Last Modified Time Details Appointments RECHECK 15 2024 07:45A M Francisco Zhong PA-C Not available Not available Not available Lab None recorded. Referral None recorded. Procedures None recorded. Surgeries None recorded. Imaging XR, knee, 4 or more view - room 212, bilateral knee 4v 2024 05 025 [email or web address] 1 [facility], [address] [facility], [facility] [address], [place], [address], 09/16/2024 12:30:27 Medication Orders None recorded. Patient TargetsNo targets recorded. Patient InstructionsNo instructions recorded. Reason for Referral None Reported. Results Created Date Observation Date Name Description Value Unit Range Abnormal Flag Note LastModifiedBy Organization Detail LastModifiedTime 09/17/19 25 09/16/2024 XR, knee, 4 or more view [email or web address] ?Encry pted=s hAaTro YD8dLq bEUv6g %2BXZw aYqtaq 0bqfl% 2Fg9IQ a4ajBk vP9nXo QUaueC m3YtLR FvZlgJ JJ8mAn HZtai3 [id number] AC0Kla nqBUKq lKiQtr MwF INTERFACE [facility] [address], [place], [address], 09/16/2024 09:17:56 09/17/19 25 09/16/2024 XR, knee, 4 or more view [email or web address] ?Encry pted=s hAaTro YD8dLq bEUv6g %2BXZw aYqtaq 0bqfl% 2Fg9IQ a4ajBk vP9nXo QUaueC m3YtLR FvZlgJ JJ8mAn HZtai3 6x6922 AC0Kla nqBUKq lKiQtr MwF INTERFACE [facility] [address], [place], [address], 09/16/2024 09:17:58 Result Notes None recorded. Problems Name Problem SNOMED Code Status Onset Date Resolution Date Notes Provider Name and Address Organization Details Recorded Time No complaints 225541966 Active Status : 'A'; Not Available [facility] 4 09:11:40 Osteoarthriti s of knee 507061393 Active 2023 Tobin Stewart PA-C [address], [facility] [place], [address] , [facility] 4 08:34:21 Problem Notes None recorded. Procedures Surgical History Date Name Laterality Status Provider Name and Address Organization Details Recorded Time 5 Knee Kenalog 40 1cc Injection, Bilateral completed Francisco Zhong PA-C [address], [place], [address], [facility] 09/16/2024 09:44:00 5 Knee Kenalog 40 1cc Injection, Bilateral completed Francisco Zhong PA-C [address], [place], [address], [facility] 06/18/2024 09:39:39 4 Euflexxa Knee Injection completed Francisco Zhong PA-C [address], [place], [address], [facility] 04/02/2024 07:52:26 4 Euflexxa Knee Injection Corky completed Francisco Zhong PA-C [address], [place], [address], [facility] 03/26/2024 08:18:06 4 Knee Kenalog 40 1cc Injection, Bilateral completed Francisco Zhong PA-C [address], [place], [address], [facility] 03/19/2024 07:58:08 4 Euflexxa Knee Injection completed Francisco Zhong PA-C [address], [place], [address], [facility] 03/19/2024 07:58:10 4 Knee Kenalog 40 1cc Injection, Bilateral completed Francisco Zhong PA-C [address], [place], [address], [facility] 12/17/2023 13:22:32 4 Knee Kenalog 40 1cc Injection, Bilateral completed Maxine Molina PA-C [address], [place], [address], [facility] 09/16/2023 08:41:13 4 Euflexxa Knee Injection completed Tobin Stewart PA-C [address], [place], [address], [facility] 07/25/2023 08:34:03 1 Bariatric Surgery completed Deepti Montalvo [facility] 09/16/2024 09:02:35 Imaging Results Imaging Date Name Status LastModified by Organiz ation Details LastModified Time 09/16/2024 XR, knee, 4 or more view completed INTERFACE [facility] [address], [place], [address], 09/16/2024 09:17:56 09/16/2024 XR, knee, 4 or more view completed [facility] [address], [place], [address], 09/16/2024 09:17:58 Procedure Notes None recorded. Medical Equipment None Reported. Allergies Allergen ID Allergen Name Allergen Category Reaction Reaction Severity Criticality Documentation Date Start Date Code Code System Note Provider Name and Address Organization Details Recorded Time 77784 erythromy kartik medicatio n Not available Not available Not available 07/14/20232018 4053 RxNorm Not Available [facility] 4 11:09:29 57546 amoxicill in trihydrat e medicatio n Not available Not available Not available 07/14/20232018 65380 8 RxNorm Not Available [facility] 4 11:09:29 29680 Bactrim medicatio n Not available Not available Not available 07/14/20232018 15411 9 RxNorm Not Available [facility] 4 11:09:29 66175 Product containin g penicilli n (product) medicatio n Not available Not available Not available 07/14/20232018 01212 8001 SNOMED Not Available [facility] 4 11:09:29 Medications Name Sig Start Date Stop Date Status Note LastModified by Organization Details LastModified Time docusate sodium 100 mg capsule TAKE 1 CAPSULE BY MOUTH DAILY active Not Available Not Available No t Available metformin ER 500 mg tablet,exte nded release 24 hr TAKE 1 TABLET BY MOUTH EVERY DAY 06/15 completed Not Available Not Available Not Available clotrimazol e 1 % topical cream APPLY 1 APPLICATI ON TOPICALLY TWICE DAILY active Not Available Not Available No t Available 1.530 (28) 1.5 mg-30 mcg (21)/75 mg (7) tablet TAKE 1 TABLET BY MOUTH EVERY DAY 03/19 completed Not Available Not Available Not Available Euflexxa 10 mg/mL (mw 2.4-3.6 million) intra-artic ular syringe Inject 2 mL by intra-art icular route for 21 days. 2023 active Not Available Not Available Not Avai lable Vitals Date Recorded Body height Heart rate Provider Name and Address Organization Details Last Updated DateTime 03/19/2024 160.02 cm 5 /min MANFRED ELYSE [facility] 03/19/2024 07:50:56 Date Recorded Body height Provider Name an d Address Organization Details Last Updated DateTime 03/26/2024 160.02 cm Deepti Montalvo [facility] 03/26/2024 07:36:09 Date Recorded Body height Body mass index (BMI) Body weight Provider Name and Address Organization Details Last Updated DateTime 04/02/2024 160.02 cm 31.5 kg/m2 04136.44 [facility] 04/02/2024 07:36:39 Date Recorded Body height Body mass index (BMI) Body weight Provider Name and Address Organization Details Last Updated DateTime 06/18/2024 160.02 cm 31.5 kg/m2 13602.44 g [facility] 06/18/2024 08:21:55 Date Recorded Body height Body mass index (BMI) Body weight Provider Name and Address Organization Details Last Updated DateTime 09/16/2024 160.02 cm 31.9 kg/m2 77231.63 g [facility] 09/16/2024 09:03:05 Social History None recorded. Functional Status None recorded. Mental Status None recorded. Family History Nothing Reported. Medical History Condition Response Allergies/Hayfever N Coronary Artery Disease N Breathing or lung disorders N Anxiety/Depression N Emphysema N Nerve Disorders N Thyroid Problems N COPD N Pacemaker N Kidney/Bladder Problems N Anemia N Vascular Disease N Heart Trouble N Gastrointestinal Disease N Heart Attack ([place]) N Cholesterol N Diabetes N Autoimmune disease N Bleeding Disorder N Inflammatory Joint disease N Orthotics N Arthritis N Seizures/Epilepsy N Blood Clot N AIDS/HIV N Congestive Heart Failure (CHF) N Acid Reflux (GERD) N Cancer N Stroke N Asthma N Circulation Problems N Peripheral Vascular Disease N Sleep Apnea N Hepatitis N Heart Disease N Rheumatoid Arthritis N Arrhythmia N Pulmonary Embolism N Headaches N Fibromyalgia N Hypertension N Osteoporosis N Gynecological HistoryNo gynecological history recorded. Obstetrics History GPAL:G 0 P 0 0 0 0 Past Encounters Encounter ID Performer Location Encounter Start Date Encounter Closed Date Diagnosis/Indication Diagnosis SNOMED-CT Code Diagnosis ICD10 Code Diagnosis Note [id number] Tobin Stewart PA-C [facility] [address] [place] [address] 07/25/2023 08:26:29 08/13/2023 10:22:45 Osteoarthritis of knee 261659978 M17.9 [id number] Maxine Molina PA-C [facility] [address] [place] [address] 09/16/2023 08:24:49 10/09/2023 09:19:21 Bilateral osteoarthritis of knees 8739302026 39850 M17.0 [id number] Francisco Zhong PA-C [address] [place] [address] 12/17/2023 12:50:43 12/17/2023 13:28:09 Bilateral osteoarthritis of knees 1992936193 91671 M17.0 You have been provided with a cortisone injection in order to reduce the pain and inflammati on that you are experienci ng. The injection consists of two medication s. Cortisone (an anti-infla mmatory that will take 48-72 hours to take effect) and Lidocaine (a numbing agent that will last 2-3 hours). Please note that not everyone will have a lasting response following the injection. PATIENT INSTRUCTIO NSOnce the Lidocaine wears off, you may have an increase in your pain. I recommend icing the affected area for 20 minutes 3-4 times per day.It is recommende d that you refrain from any high level activities using the joint or limb that was injected for approximat nate 24-48 hours. Normal day-to-day activities are generally not a problem.PO SSIBLE SIDE EFFECTSInd ividuals with dark complexion s may experience some skin discolorat ion locally at the site of the injection. There is the possibilit y of an increase in discomfort within 48 hours following the injection. This is called a ? f lare? . To help minimize the chances of this, please see the post-injec tion instructio ns above.Ther e is a less than 1% chance of an infection. If you notice any signs of infection (redness, warmth, drainage, fever greater than 100 degrees) please call our office or contact us through the portal [facility]. [id number] [facility] [address] [place] [address] 03/19/2024 07:35:26 04/05/2024 19:22:41 Primary gonarthrosis, bilateral 106609072 M17.0 You have been provided with a cortisone injection in order to reduce the pain and inflammati on that you are experienci ng. The injection consists of two medication s. Cortisone (an anti-infla mmatory that will take 48-72 hours to take effect) and Lidocaine (a numbing agent that will last 2-3 hours). Please note that not everyone will have a lasting response following the injection. PATIENT INSTRUCTIO NSOnce the Lidocaine wears off, you may have an increase in your pain. I recommend icing the affected area for 20 minutes 3-4 times per day.It is recommende d that you refrain from any high level activities using the joint or limb that was injected for approximat nate 24-48 hours. Normal day-to-day activities are generally not a problem.PO SSIBLE SIDE EFFECTSInd ividuals with dark complexion s may experience some skin discolorat ion locally at the site of the injection. There is the possibilit y of an increase in discomfort within 48 hours following the injection. This is called a ? f lare? . To help minimize the chances of this, please see the post-injec tion instructio ns above.Ther e is a less than 1% chance of an infection. If you notice any signs of infection (redness, warmth, drainage, fever greater than 100 degrees) please call our office or contact us through the portal [facility]. [id number] [facility] [address] [place] [address] 03/26/2024 07:27:49 04/15/2024 06:14:23 Primary gonarthrosis, bilateral 031971400 M17.0 You have been provided with a cortisone injection in order to reduce the pain and inflammati on that you are experienci ng. The injection consists of two medication s. Cortisone (an anti-infla mmatory that will take 48-72 hours to take effect) and Lidocaine (a numbing agent that will last 2-3 hours). Please note that not everyone will have a lasting response following the injection. PATIENT INSTRUCTIO NSOnce the Lidocaine wears off, you may have an increase in your pain. I recommend icing the affected area for 20 minutes 3-4 times per day.It is recommende d that you refrain from any high level activities using the joint or limb that was injected for approximat nate 24-48 hours. Normal day-to-day activities are generally not a problem.PO SSIBLE SIDE EFFECTSInd ividuals with dark complexion s may experience some skin discolorat ion locally at the site of the injection. There is the possibilit y of an increase in discomfort within 48 hours following the injection. This is called a ? f lare? . To help minimize the chances of this, please see the post-injec tion instructio ns above.Ther e is a less than 1% chance of an infection. If you notice any signs of infection (redness, warmth, drainage, fever greater than 100 degrees) please call our office or contact us through the portal [facility]. [id number] [facility] [address] [place] [address] 04/02/2024 07:30:13 04/26/2024 14:21:54 Primary gonarthrosis, bilateral 464026441 M17.0 You have been provided with a cortisone injection in order to reduce the pain and inflammati on that you are experienci ng. The injection consists of two medication s. Cortisone (an anti-infla mmatory that will take 48-72 hours to take effect) and Lidocaine (a numbing agent that will last 2-3 hours). Please note that not everyone will have a lasting response following the injection. PATIENT INSTRUCTIO NSOnce the Lidocaine wears off, you may have an increase in your pain. I recommend icing the affected area for 20 minutes 3-4 times per day.It is recommende d that you refrain from any high level activities using the joint or limb that was injected for approximat nate 24-48 hours. Normal day-to-day activities are generally not a problem.PO SSIBLE SIDE EFFECTSInd ividuals with dark complexion s may experience some skin discolorat ion locally at the site of the injection. There is the possibilit y of an increase in discomfort within 48 hours following the injection. This is called a ? f lare? . To help minimize the chances of this, please see the post-injec tion instructio ns above.Ther e is a less than 1% chance of an infection. If you notice any signs of infection (redness, warmth, drainage, fever greater than 100 degrees) please call our office or contact us through the portal [facility]. [id number] [facility] [address] [place] [address] 06/18/2024 08:13:47 07/06/2024 11:19:59 Primary gonarthrosis, bilateral 978704858 M17.0 You have been provided with a cortisone injection in order to reduce the pain and inflammati on that you are experienci ng. The injection consists of two medication s. Cortisone (an anti-infla mmatory that will take 48-72 hours to take effect) and Lidocaine (a numbing agent that will last 2-3 hours). Please note that not everyone will have a lasting response following the injection. PATIENT INSTRUCTIO NSOnce the Lidocaine wears off, you may have an increase in your pain. I recommend icing the affected area for 20 minutes 3-4 times per day.It is recommende d that you refrain from any high level activities using the joint or limb that was injected for approximat nate 24-48 hours. Normal day-to-day activities are generally not a problem.PO SSIBLE SIDE EFFECTSInd ividuals with dark complexion s may experience some skin discolorat ion locally at the site of the injection. There is the possibilit y of an increase in discomfort within 48 hours following the injection. This is called a ? f lare? . To help minimize the chances of this, please see the post-injec tion instructio ns above.Ther e is a less than 1% chance of an infection. If you notice any signs of infection (redness, warmth, drainage, fever greater than 100 degrees) please call our office or contact us through the portal [facility]. [id number] [facility] [address] [place], [place] [address] 09/16/2024 08:58:40 09/16/2024 09:44:23 Pain of knee region [id number] M25.561 M25.562 G89.29 Primary go narthrosis, bilateral [id number] M17.0 You have been provided with a cortisone injection in order to reduce the pain and inflammati on that you are experienci ng. The injection consists of two medication s. Cortisone (an anti-infla mmatory that will take 48-72 hours to take effect) and Lidocaine (a numbing agent that will last 2-3 hours). Please note that not everyone will have a lasting response following the injection. PATIENT INSTRUCTIO NSOnce the Lidocaine wears off, you may have an increase in your pain. I recommend icing the affected area for 20 minutes 3-4 times per day.It is recommende d that you refrain from any high level activities using the joint or limb that was injected for approximat nate 24-48 hours. Normal day-to-day activities are generally not a problem.PO SSIBLE SIDE EFFECTSInd ividuals with dark complexion s may experience some skin discolorat ion locally at the site of the injection. There is the possibilit y of an increase in discomfort within 48 hours following the injection. This is called a ? f lare? . To help minimize the chances of this, please see the post-injec tion instructio ns above.Ther e is a less than 1% chance of an infection. If you notice any signs of infection (redness, warmth, drainage, fever greater than 100 degrees) please call our office or contact us through the portal [facility]. Health Concerns Section Related Observation LastModified by Organization Detai ls LastModified Time None Recorded Concern Status LastModified by Organization Details LastModified Time None Recorded Advance Directives Directive None Recorded Payers Encounter Date Sequence Insurance Name Policy Number Policy Sheppard Covered Member ID Sheppard Member ID Guarantor Name 03/19/2024 1 [facility] - [employer] (HMO) [id number] Arminda Pathak [id number] Arminda Pathak 03/26/2024 1 [facility] PL[facility] - [employer] (HMO) [id number] Arminda Pathak [id number] Arminda Pathak 04/02/2024 1 [facility] - [employer] (HMO) [id number] Arminda Pathak [id number] Arminda Pathak 06/18/2024 1 [facility] (MEDICAID REPLACEMENT - HMO) [id number] Arminda Pathak [id number] Arminda Pathak 09/16/2024 1 [facility] (MEDICAID HMO) JEREMIAH Pathak [id number] Arminda Pathak Notes Date Note Type Note Provider Name and Address Organization Details Recorded Time 03/19/2024 text/html I am seeing the patient today under the supervision of {{Dr. Norma Moran#}} who was available but who did not see the patient. HPI: Patient comes in for recheck of {{right left bilater al*}} knee pain. Has known osteoarthritis in the medial compartment of the knee(s). Been treated conservatively with cortisone injection to this point with {{ 10#}} weeks relief of symptoms. No new injury or modalities. He is also scheduled for Euflexxa No. 1 injections today. Past family, medical, social history and review of systems has been reviewed, updated and is located in the patient? s chart. Examination:The patient is well appearing and in no apparent distress. Alert and oriented x3. Vital signs per intake sheet. Examination of the {{right left bilater al*}} knee reveals no effusion erythema or warmth. Decreased range of motion. Lower extremity varus deformity. Point tender over the medial joint line. Calf soft and nontender. 4+/5 strength of knee flexion extension. Impression: Osteoarthritis Plan: Nature of the diagnosis discussed with the patient today. Both surgical and nonsurgical options were reviewed. This point recommend a repeat cortisone injection. Patient agreed. {{anterior medial anterior lateral* Superior Lateral}} portal was used. See Procedure note. Follow-up with us in 3 months for discussion of continued conservative management versus total joint arthroplasty. Francisco Zhong PA-C [address], [place], [address], [facility] 03/19/2024 07:59:04 03/26/2024 text/html I am seeing the patient today under the supervision of {{Dr. Norma Hernandez* Dr. Zain Schaeffer}} who was available but who did not see the patient. Patient is in today for {{Euflexxa* gelsyn h ymovis Hyalgan}} {{#1 #2* #3}} injection of the {{left right bilater al*}} knee. Injection site benign Francisco Zhong PA-C [address], [place], [address], [facility] 03/26/2024 08:18:34 04/02/2024 text/html I am seeing the patient today under the supervision of {{Dr. Norma Schaeffer}} who was available but who did not see the patient. Patient is in today for {{Euflexxa* gelsyn h ymovis Hyalgan}} {{#1 #2 #3*}} injection of the {{left right bilater al*}} knee. Injection site benign Francisco Zhong PA-C [address], [place], [address], [facility] 04/02/2024 07:54:07 06/18/2024 text/html I am seeing the patient today under the supervision of {{Dr. Norma Hernandez#}} Who was available but who did not see the patient. HPI: Patient comes in for recheck of {{left right bilater al*}} knee pain. Has known osteoarthritis in the lateral compartment of the knee(s). Been treated conservatively with cortisone injection to this point with {{ 10#}} weeks relief of symptoms. No new injury or modalities. Past family, medical, social history and review of systems has been reviewed, updated and is located in the patient? s chart. Examination:The patient is well appearing and in no apparent distress. Alert and oriented x3. Vital signs per intake sheet. Examination of the {{left right bilater al*}} knee reveals no effusion erythema or warmth. Decreased range of motion. Lower extremity valgus deformity. Point tender over the lateral joint line. Calf soft and nontender. 4+/5 strength of knee flexion extension. Impression: Osteoarthritis Plan: Nature of the diagnosis discussed with the patient today. Both surgical and nonsurgical options were reviewed. This point recommend a repeat cortisone injection. Patient agreed. {{anterior medial anterior lateral* Superior Lateral}} portal was used. See prodecure note. Follow-up with us in 3 months for discussion of continued conservative management versus total joint arthroplasty. Francisco Zhong PA-C [address] [facility] [address], [place], [address], [facility] 06/18/2024 09:40:01 09/16/2024 text/html I am seeing the patient today under the supervision of {{Dr. Green* Dr. Ubaldo Schaeffer}} Who was available but who did not see the patient. HPI: Patient comes in for recheck of {{left right bilater al*}} knee pain. Has known osteoarthritis in the lateral compartment of the knee(s). Been treated conservatively with cortisone injection to this point with {{ 6#}} weeks relief of symptoms. No new injury or modalities. Also gets relief from gel injections Past family, medical, social history and review of systems has been reviewed, updated and is located in the patient? s chart. Examination:The patient is well appearing and in no apparent distress. Alert and oriented x3. Vital signs per intake sheet. Examination of the {{left right bilater al*}} knee reveals no effusion erythema or warmth. Decreased range of motion. Lower extremity valgus deformity. Point tender over the lateral joint line. Calf soft and nontender. 4+/5 strength of knee flexion extension. 4 views bilateral knees were ordered obtained and reviewed today. Radiographs demonstrate moderate to advanced arthritis of her left knee moderate arthritis lateral compartment right knee does have advanced [id number] arthritis of the patellofemoral joint on the left side now. Compared to previous radiographs. No acute fracture appreciated. Impression: Osteoarthritis Plan: Nature of the diagnosis discussed with the patient today. Both surgical and nonsurgical options were reviewed. This point recommend a repeat cortisone injection. Patient agreed. {{anterior medial anterior lateral* Superior Lateral}} portal was used. See procedure note. Follow-up with us in 3 months for discussion of continued conservative management versus total joint arthroplasty. Repeat gel auth. Francisco Zhong PA-C [address], [place], [address], [place] - [facility] 09/16/2024 09:44:21 OBGyn Episode No OBEpisode recorded.
--- OUTSIDE RECORDS SUMMARY | 2024-09-20 15:51 | XMS_ITS ---
Author Organization [facility] Address [address] [place] [address] Care Team Providers Care Java Architect Name Role Phone Elijah Bedolla MD Primary Care Provider Miriana Azar Real [phone] REASON FOR VISIT screening Problems Problem Type SNOMED Code ICD Code Onset Dates Problem Status W/U Status Risk Notes Problem Diverticulosis o f large intestine without perforation or abscess without bleeding (K57.30) Active confirmed Encounters Encounter Location Date Provider Diagnosis [facility] [address] [place], [place] [id number] 11/03/2023 Azar Simmons Encounter for scre ening [...] * YULIA BARRYDOB:1970 ( 53 yo F)Acc No.[id number]:11/03/2023 COLON WITH MAC Patient:?YULIA BARRY Provider:?Azar Simmons MD :1970???Age:52 Y???Sex:Female D ate:11/03/2023 Address:[address] [place] [address] , [place] [facility] Pcp:Elijah Bedolla MD Subjective: * Chief Complaints: * ???1. Screening. * Medical History:? Objective: * Vitals:? Assessment: * Assessment: 1.?Encounter for screening c olonoscopy - Z12.11 (Primary)???2.?Diverticulosis of large intestine without perforation or abscess without bleeding - K57.30???3.?Other hemorrhoids - K64.8??? Plan: * Treatment: * Procedure Codes:?86746 DIAGN OSTIC COLONOSCOPY * * The named appointment provid er may or may not be the originator of this progress note, and it is not deemed complete until electronically signed by the appointment provider. Sign off status: Pending * Provider:?Azar Simmons MD Date:? 024 Generated for Krystle lopez/Matt/Pinkyitting on:?09/20/2024 03:51 PM EDT
--- OUTSIDE RECORDS SUMMARY | 2024-09-20 15:51 | XMS_ITS | Patient Health Record ---
Author Organization [facility] Address [address] [place] [address] Care Team Providers Care Fisherman Helper Name Role Phone Elijah Bedolla MD Primary Care Provider Azar Stubbs Unavailable [phone] Allergies Allergen (clinical drug ingredient) Drug/Non Drug Allergy documented on EMR Reaction Allergy Type Onset Date Status erythromycin Erythromycin Unknown Drug Allergy A ctive sulfamethoxazole / trimethoprim Bactrim Unknown Drug Allergy Active Results Component Value Reference Range Notes Ur Preg Test Reviewed date:11/03/2023 10:24:08 PM Interpretation: Performing Lab:[facility], [address] [place] [id number] Notes/Report: Urine NEGATIVE NEGATIVE This test was [...] Status Risk Notes Problem Colon cancer screening (676820270) Colon cancer screening (Z12.11) Active confirmed Problem Pre-procedure evaluation check (725761567) Encounter for other preprocedural examination (Z01.818) Active confirmed Problem Diverticulosis o f large intestine without perforation or abscess without bleeding (K57.30) Active confirmed Encounters Encounter Location Date Provider Diagnosis [facility] [place] Out[place] [address] [place], [place] [id number] 11/03/2023 Azar Simmons Encounter for scre ening [...] Insured Coverage Start Date Coverage End Date [facility] [address] [address] [place], [place] [id number] YULIA BARRY Self - patient is the insured Medical (General) History Medical History History ICD Code Denies [place],DM,CVA,Lung disease,renal dise ase Surgical History Surgery Date(Month/Year) Cholecystectomy BREAST REDUCTION Sleeve gastrectomy at [facility] -lost 85#
--- OUTSIDE RECORDS SUMMARY | 2024-09-20 15:52 | XMS_ITS ---
Author Organization [facility] Address [address] [address] Care Team Providers Care National Service Officer Name Role Phone YAMILEX GRIJALVA M.D. 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 HEALTH Physical Encounters Encounter Location Date Provider Diagnosis [facility] [address] [place] [phone] 12/25/2023 ASHA NORIEGA Encounter for gynecological examination [...] Follow Up: 1 Year, Reason: Y early Accountant Auditor Exam Provider Name:ASHA Stefania Lai, 02/22/2025 03:30:00 PM, [address], [address], [place], [address], Progress Notes * BARRYARMINDADOB:1970 ( 53 yo F)Acc No.[id number]:12/25/2023 PROGRESS NOTES Patient:?BARRY ARMINDA Provider:?ASHA NORIEGA MD :1970???Age:53 Y???Sex:Female D ate:12/25/2023 Address:[address] [place] [address], [id number] Pcp:YAMILEX GRIJALVA M.D. Subjective: * Chief Complaints: * ???1. Annual MEDICAL DIRECTOR OCCUPATIONAL HEALTH Physical. 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 ?She has been in state of [...] Her last mammogram was *last year at [facility] - usually in Jan/Feb. ?She does *not have a family history of colon cancer. She a has *not yet had a colonoscopy. ?The patient does *not exercise. She plans to get back to it. * ROS:?Annual Accountant Auditor Exam ROS:?Bowel habit changes?denies.?Bladder symptoms?denies.?Vaginal discharge, unusual?denies.?Vaginal itch or odor?denies.?weight or appetite changes?denies.?Chest pains, SOB?denies.?depression?denies.?Breast:?Denies?Breast lump.?Denies?Nipple discharge.?Hematology:?Denies?Swollen glands.?Skin:?Patient denies?changing moles.?Psychiatric:?Denies?Anxiety.? * Medical History:? Objective: * Vitals:? * Examination: ???General Examination: ?GENERAL APPEARANCE:?in no acute distress, well developed, well nourished, net architect present in room.?HEAD:?normocephalic, atraumatic.?NECK/THYROID:?neck supple, full range [...] * Follow Up:?1 Year (Reason: Y early Accountant Auditor Exam) * Images: Billing Information: * Visit Code:? 11546 Preventive Care Est Pt. Age 40-64. * Procedure Codes:? * Electronic signature of ASHA NORIEGA MD on 09/20/2024 at 03:52 PM EDT Sign off status: Pending * Provider:?ASHA NORIEGA MD Date:?2023 Generated for Krystle lopez/Matt/Pinkyitting on:?09/20/2024 03:52 PM EDT History and Physical Notes * HPI (History of Present Illness) Category Sub-Category Detail Notes Category Not es Constitutional Arminda is a 53yo with LMP who presents for her yearly drier unloader exam. She has been in state of [...] Her last mammogram was *last year at [facility] - usually in Jan/Feb. She does *not have a family history of colon cancer. She a has *not yet had a colonoscopy. The patient does *not exercise. She plans to get back to it. Examination Category Sub-Category Detail Notes Category Not es General Examination GENERAL APPEARANCE: in no ac cleopatra distress, well developed, well nourished, net architect present in room HEAD: normocephalic, atrau matic [...]
--- OUTSIDE RECORDS SUMMARY | 2024-09-20 15:52 | XMS_ITS ---
Author Organization [facility] Address [address] [place] [address] Care Team Providers Care Bezel Cutter Name Role Phone Elijah Bedolla MD Primary Care Provider Azar Stubbs Unavailable [phone] Allergies Allergen (clinical drug ingredient) Drug/Non Drug [...] Status Risk Notes Problem Colon cancer screening (627810563) Colon cancer screening (Z12.11) Active confirmed Problem Pre-procedure evaluation check (873861561) Encounter for other preprocedural examination (Z01.818) Active confirmed Vital Signs Temperature 97.5 degrees Fahrenheit 07/29/19 24 Blood pressure systolic 00 mm Hg 07/29/19 24 Blood pressure diastolic 00 mm Hg 024 Height 5 ft 3 in in 07/29/2023 Weight 213 lbs 07/29/2023 BMI 37.73 kg/m2 07/29/2023 Encounters Encounter Location Date Provider Diagnosis [facility] [address] [place] [address] 07/29/2023 Azar Simmons Colon cancer screeni ng [...] * ARMINDA BARRYDOB:1970 ( 52 yo F)Acc No.[id number]:07/29/2023 Progress Notes Patient:?ARMINDA BARRY Provider:?Azar Simmnos MD :1970???Age:52 Y???Sex:Female D ate:07/29/2023 Address:[address] , [id number] Pcp:Elijah Bedolla MD Subjective: * Chief Complaints: [...] History:?Cholecyste [place]omy [place] [facility] [place] * Hospitalization/Major Diagno stic [...] point),?Points?0,?Interpretation?Negative.?Miscellaneous:?Marital status: . 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 ???Nonsmoker; no sig alcohol. * Medications:?TakingJun 1.5-30 [...] Procedure Codes:?3017F COLOR ECTAL CA SCREEN DOC [id number] TOBACCO [id number] BP SCR NOT PRFRM REC REASON NOS * Preventive Medicine:? ??Counseling:?Care goal follow-up plan:?Above Normal BMI Follow-up?Giving encouragement to exercise,?BMI management provided?Yes.? * Follow Up:?prn * * Sign off status: Completed true * Provider:?Azar Simmons MD Date:? 024 Generated for Krystle lopez/Matt/Pinkyitting on:?09/20/2024 03:52 PM [...]
--- OUTSIDE RECORDS SUMMARY | 2024-09-20 15:52 | XMS_ITS | Patient Health Record ---
Author Organization [employer] [facility] Address [address] [facility] [facility] [address] [place] [address] Care Team Providers Care Ent Nurse Name Role Phone YAMILEX GRIJALVA M.D. Primary Care Provider ASHA Michael Unavailable [phone] Allergies Allergen (clinical drug ingredient) Drug/Non Drug Allergy documented on EMR Reaction Allergy Type Onset Date Status amoxicillin Amoxicillin Hives Drug Allergy Act larry sulfamethoxazole / trimethoprim Bactrim Hives Drug Allergy Active erythromycin Erythromycin hives Drug Allergy A ctive penicillin V Penicillin V Potassium Hives Drug Allergy Active Sulfur Hives Drug Allergy Active Reason For Referral No Information Medications Medication [...] less (1 point) Points 1 Interpretation Negative Problems Problem Type SNOMED Code ICD Code Onset Dates Problem Status W/U Status Risk Notes Problem Type II diabetes mellitus without complication (290827274) Type 2 diabetes mellitus without complications (E11.9) Active confirmed Problem Irregular menstruation (03562218) Irregular menstruation, unspecified (N92.6) Active confirmed Problem Abnormal uterine bleeding (41143901998107) Abnormal uterine and vaginal bleeding, unspecified (N93.9) Active confirmed Problem Body mass index 40+ - severely obese (030896860) Body mass index (BMI) 45.0-49.9, adult (Z68.42) Active confirmed Problem Intrauterine contraceptive device in situ (finding) (913707169) Presence of (intrauterine) contraceptive device (Z97.5) Active confirmed Problem Body mass index 40+ - morbidly obese (273506567) Body mass index (BMI) 50.0-59.9, adult (Z68.43) Active confirmed Problem COVID-19 (037592342) COVID-19 (U07.1) Active confirmed Vital Signs Temperature 97.8 degrees Fahrenheit 02/16/2024 Blood pressure diastolic 82 mm Hg 02/16/2024 Height 63.5 in 02/16/2024 Blood pressure systolic 110 mm Hg 02/16/2024 Weight 224 lbs 02/16/2024 BMI 39.05 kg/m2 02/16/2024 Encounters Encounter Location Date Provider Diagnosis [address] [address] 02/16/2024 ASHA NORIEGA Encounter for gynecological examination [...] or she reaches menopause Plan Of Treatment Pending Test Test Name Order Date Sonohysterogram 11/22/2019 Test, Urine 10/16/2020 MM Digital Screening Mammogram 3D 2020 MM Digital Screening Mammogram 3D 2021 MM Digital Screening Mammogram 3D 2022 MM Digital Screening Mammogram 3D 2023 MM Digital Screening Mammogram 3D 2018 MM Digital Screening Mammogram 3D 2019 Next Appt Details Provider Name:ASHA Lai, 02/22/2025 03:30:00 PM, [address], [address], [place], [address], Insurance Providers Payer Name Payer Address Payer Phone Subscriber Number Group Number Insured Name Patient Relationship to Insured Coverage Start Date Coverage End Date [facility] [address] [address] [place] [id number] YULIA BARRY Self - patient is the insured Medical (General) History Medical History History ICD Code Calculus of gallbladder without cholecys titis without obstruction K80.20 Sensorineural hearing loss, unilateral, right ear, with unrestricted hearing on the contralateral side H90.41 Type 2 diabetes mellitus without complic ations E11.9 COVID-19 U07.1 Surgical History Surgery Date(Month/Year) Cholecystectomy 06/1999 Breast Reduction 2005 Gastric Sleeve 11/2020 Hospitalization History Reason Date(Month/Year) 2 Vaginal Deliveries
--- OUTSIDE RECORDS SUMMARY | 2024-09-20 15:52 | XMS_ITS ---
Author Organization [employer] [facility] Address [address] [address] Care Team Providers Care Bathhouse Keeper Name Role Phone YAMILEX GRIJALVA M.D. Primary Care Provider ASHA Michael Unavailable [phone] Allergies Allergen (clinical drug ingredient) Drug/Non Drug Allergy documented on EMR Reaction Allergy Type Onset Date Status amoxicillin Amoxicillin Hives Drug Allergy Act larry sulfamethoxazole / trimethoprim Bactrim Hives Drug Allergy Active erythromycin Erythromycin hives Drug Allergy A ctive penicillin V Penicillin V Potassium Hives Drug Allergy Active Sulfur Hives Drug Allergy Active REASON FOR VISIT Annual TRACTOR DRIVER Physical Medications Medication SIG (Take, Route, Frequency, [...] Encounters Encounter Location Date Provider Diagnosis Total [address] [place] [address] 02/16/2024 ASHA NORIEGA Encounter for gynecological examination [...] Follow Up: 1 Year, Reason: Y early Trolley Car Mechanic Exam Provider Name:ASHA Lai, 02/22/2025 03:30:00 PM, [email or web address], [address], [place], [address], Progress Notes * ARMINDA BARRYDOB:1970 ( 53 yo F)Acc No.[id number]:02/16/2024 PROGRESS NOTES Patient:ARMINDA BENITEZ Provider:?ASHA NORIEGA MD :1970???Age:53 Y???Sex:Female D ate:02/16/2024 Address:[address] [place] [address], [id number] Pcp:YAMILEX GRIJALVA M.D. Subjective: * Chief Complaints: * ???Annual TRACTOR DRIVER Physical * HPI: ???Constitutional:?Arminda is a 53yo with LMP 02/06/24 who presents for her yearly nurse clinical exam. ?She has been in state of [...] Her last mammogram was last year at [facility] -? in Feb. She is due end of February/early March ?She does not have a family history of colon cancer. She a has had a colonoscopy in October 2023, next due in 10 yrs. ?The patient does not exercise. * ROS:?Annual Trolley Car Mechanic Exam ROS:?Bowel habit changes? admits,?occasional constipation.?Bladder symptoms?denies.?Vaginal discharge, unusual?denies.?Vaginal itch or odor?denies.?weight or appetite changes?denies.?Chest pains, SOB?denies. depression? admits,?mild, denies HI/SI. She eats when she is down.?Breast:?Denies?Breast lump.?Denies?Nipple discharge.?Hematology:?Denies?Swollen glands.?Skin:?Patient denies?changing moles.?Psychiatric:?Denies?Anxiety.? * Medical History:? * Trolley Car Mechanic History:?/ Para?09/2031.?Sexual activity?currently sexually active.?Last Pap Smear:?12/23/22 NIL, NEG HPV, 07/08/17 NIL, NEG HRHPV.?Mammogram:?03/07/23 Breast Tissue is Almost Entirely Fatty, 01/2022, 12/2020 @ [facility], 12/2019.?Abnormal Pap Smear:?no history of abnormal [...] support system: yes. 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 ?Pets: none. ?Sexual abuse: no. ?Sexually active: yes, monogamous relationship. ?Travel outside of the [place]: no. ?Verbal abuse: no. ???Drug/Alcohol:?AUDIT-C (Standard)?Did [...] no acute distress, well developed, well nourished, face cleaner present in room.?HEAD:?normocephalic, atraumatic.?NECK/THYROID:?neck supple, full range [...] muscle mass and strength. 'Sarco' is the [place] word referring to flesh, and 'penia' means [...] * Follow Up:?1 Year (Reason: Y early Trolley Car Mechanic Exam) * Images: Billing Information: * Visit Code:? 92551 Preventive Care Est Pt. Age 40-64. * Procedure Codes:? * Sign off status: Completed true * Provider:?ASHA NORIEGA MD Date:?2023 Generated for Krystle lopez/Matt/eTransmitting on:?09/20/2024 03:52 PM EDT History and Physical Notes * HPI (History of Present Illness) Category Sub-Category Detail Notes Category Not es Constitutional Arminda is a 53yo with LMP 02/06/24 who presents for her yearly nurse clinical exam. She has been in state of [...] Her last mammogram was last year at [facility] - in Feb. She is due end of February/early March She does not have a family history of colon cancer. She a has had a colonoscopy in October 2023, next due in 10 yrs. The patient does not exercise. Examination Category Sub-Category Detail Notes Category Not es General Examination GENERAL APPEARANCE: in no ac hughes distress, well developed, well nourished, face cleaner present in room HEAD: normocephalic, atrau matic [...]
--- OUTSIDE RECORDS SUMMARY | 2024-09-20 15:53 | XMS_ITS | Continuity of Care Document ---
Author Organization [place] - [facility], ALBERTO [facility] 2nd floor Address [address] [place] [address] Care Team Providers Care Laboratory Administrative Director Name Role Phone JULIO GRIJALVA Primary Care Provider Assessment No assessment recorded. Plan of Treatment Reminders Order Date Submit Date Provider Last Modified By Organization Details Last Modified Time Details Appointments RECHECK 15 2024 07:45A M Francisco Zhong PA-C Not available Not available Not available Lab None recorded. Referral None recorded. Procedures None recorded. Surgeries None recorded. Imaging XR, knee, 4 or more view - room 212, bilateral knee 4v 2024 025 [email or web address] 1 [facility], [address] [address], [place], [address], 09/16/2024 12:30:27 Medication Orders None recorded. Patient [...] a4ajBk vP9nXo QUaueC m3YtLR FvZlgJ JJ8mAn HZtai3 [id number] AC0Kla nqBUKq lKiQtr MwF INTERFACE [facility] [address], [place], [address], 09/16/2024 09:17:56 09/17/19 25 09/16/2024 XR, knee, 4 or more view http:/ [email or web address] ?Encry pted=s hAaTro YD8dLq bEUv6g %2BXZw aYqtaq 0bqfl% 2Fg9IQ a4ajBk vP9nXo QUaueC m3YtLR FvZlgJ JJ8mAn HZtai3 [id number] AC0Kla nqBUKq lKiQtr MwF INTERFACE [facility] [address], [place], [address], 09/16/2024 09:17:58 Result Notes None recorded. Problems Name Problem SNOMED Code Status Onset Date Resolution Date Notes Provider Name and Address Organization Details Recorded Time No complaints 468487798 Active Status : 'A'; Not Available [facility] 4 09:11:40 Osteoarthriti s of knee 311735078 Active 2023 Tobin Stewart PA-C [address], [facility] [place], [address] , [facility] 4 08:34:21 Problem Notes None recorded. Procedures Surgical History Date Name Laterality Status Provider Name and Address Organization Details Recorded Time 5 Knee Kenalog 40 1cc Injection, Bilateral completed Francisco Zhong PA-C [address], [place], [address], [facility] 09/16/2024 09:44:00 5 Knee Kenalog 40 1cc Injection, Bilateral completed Francisco Zhong PA-C [address], [place], [address], [facility] 06/18/2024 09:39:39 4 Euflexxa Knee Injection completed Francisco Zhong PA-C [address], [place], [address], [facility] 04/02/2024 07:52:26 4 Euflexxa Knee Injection Corky completed Francisco Zhong PA-C [address], [place], [address], [facility] 03/26/2024 08:18:06 4 Knee Kenalog 40 1cc Injection, Bilateral completed Francisco Zhong PA-C [address], [place], [address], [facility] 03/19/2024 07:58:08 4 Euflexxa Knee Injection completed Francisco Zhong PA-C [address] [facility], [place], [address], [facility] 03/19/2024 07:58:10 4 Knee Kenalog 40 1cc Injection, Bilateral completed Francisco Zhong PA-C [address] [facility], [place], [address], [facility] 12/17/2023 13:22:32 4 Knee Kenalog 40 1cc Injection, Bilateral completed Maxine Molina PA-C [address] [facility], [place], [address], [facility] 09/16/2023 08:41:13 4 Euflexxa Knee Injection completed Tobin Stewart PA-C [address] [facility], [place], [address], [facility] 07/25/2023 08:34:03 1 Bariatric Surgery completed Deepti Montalvo [facility] 09/16/2024 09:02:35 Imaging Results None recorded. Procedure Notes None recorded. Medical Equipment None Reported. Allergies Allergen ID Allergen Name Allergen Category Reaction Reaction Severity Criticality Documentation Date Start Date Code Code System Note Provider Name and Address Organization Details Recorded Time 78461 erythromy kartik medicatio n Not available Not available Not available 07/14/20232018 4053 RxNorm Not Available [facility] 4 11:09:29 08428 amoxicill in trihydrat e medicatio n Not available Not available Not available 07/14/20232018 42164 8 RxNorm Not Available [facility] 4 11:09:29 06995 Bactrim medicatio n Not available Not available Not available 07/14/20232018 80391 9 RxNorm Not Available [facility] 4 11:09:29 70688 Product containin g penicilli n (product) medicatio n Not available Not available Not available 07/14/20232018 57848 8001 SNOMED Not Available [facility] 4 11:09:29 Medications Name Sig Start Date [...] Not Available Not Available No t Available 1.5/30 (28) 1.5 mg-30 mcg (21)/75 mg (7) tablet TAKE 1 TABLET BY MOUTH EVERY DAY 03/19 completed Not Available Not Available Not Available Euflexxa 10 mg/mL (mw 2.4-3.6 million) intra-artic ular syringe Inject 2 mL by intra-art icular route for 21 days. 2023 active Not Available Not Available Not Avai lable Vitals Date Recorded Body height Body mass index (BMI) Body weight Provider Name and Address Organization Details Last Updated DateTime 09/16/2024 160.02 cm 31.9 kg/m2 62529.63 g Deepti Montalvo [place] [facility] 09/16/2024 09:03:05 Social History None recorded. Functional Status None recorded. Mental Status None recorded. Family History Nothing Reported. Medical History Condition Response Allergies/Hayfever N Coronary Artery Disease N Anxiety/Depression N Breathing or lung disorders N Emphysema N Nerve Disorders N Thyroid Problems N COPD N Pacemaker N Anemia N Kidney/Bladder Problems N Vascular Disease N Heart Trouble N Heart Attack ([place]) N Gastrointestinal Disease N Cholesterol N Diabetes N Autoimmune disease [...] SNOMED-CT Code Diagnosis ICD10 Code Diagnosis Note [id number] [facility] 2nd floor [address] [place] [address] 09/16/2024 08:58:40 09/16/2024 09:44:23 Pain of knee region [id number] M25.561 M25.562 G89.29 Primary go narthrosis, bilateral 312471025 M17.0 You have been provided with a [...] by Organization Details LastModified Time None Recorded Payers Encounter Date Sequence Insurance Name Policy Number Policy Sheppard Covered Member ID Sheppard Member ID Guarantor Name 09/16/2024 1 [facility] NET PLAN (MEDICAID HMO) JEREMIAH Arminda Pathak [id number] Arminda Pathak Notes Date Note Type Note Provider Name and Address Organization Details Recorded Time 09/16/2024 text/html I am seeing the patient [...] lateral compartment right knee does have advanced aias-py-rotw arthritis of the patellofemoral joint on the [...] Repeat gel auth. Francisco Zhong PA-C [address], [place], [address], [place] [facility] 09/16/2024 09:44:21 OBGyn Episode No OBEpisode recorded.
--- NOTE | 2024-09-20 16:00 | MHC.PC.OV ---
Vital Signs 09/20/24 16:29 Height 5 ft 3 in Weight 104.326 kg BMI 40.7 BP 112/80 Respiration 16 Pulse 75 Temp 97.1 F Temp Source Temporal Artery Scan Pulse Oximetry (%) 99 Oxygen Delivery Method Room Air Intake Visit Reasons: Routine Scrap Metal Burner Required: No Accompanied by: Self / Same As Patient Allergies amoxicillin Allergy (Severe, Verified 09/20/24 16:28) hives penicillin V Allergy (Severe, Verified 09/20/24 16:28) hives Sulfa (Sulfonamide Antibiotics) Allergy (Severe, Verified 09/20/24 16:28) hives erythromycin base Allergy (Verified 09/20/24 16:28) Hives Penicillins Allergy (Verified 09/20/24 16:28) Hives sulfamethoxazole [From Bactrim] Allergy (Verified 09/20/24 16:28) Hives trimethoprim [From Bactrim] Allergy (Verified 09/20/24 16:28) Hives Tobacco use date assessed: 09/20/24 Dental Screening Dental Screen Date: 09/20/24 Did you have a dental visit in the last 12 months?: Yes Did you have a dental problem in the last 6 months where you did not have access to dental care?: No Was dental information given to patient?: Patient has dentist HPI HPI Comments History of Present Illness Details 53-year-old female with history of noninsulin type 2 diabetes with class 3 obesity presents to the office today for routine follow-up and to establish care. She has been compliant with all medications. She is reporting 10/10 pain in the right lower quadrant with associated nausea and vomiting ongoing for 4 days and is intermittent in nature. Denies any fevers, chills, dysuria, hematuria, increased urinary frequency or decreased urinary output. No changes to bowel habits. Last bowel movement this morning and was normal. No melena or hematochezia. He does have a history of cholecystectomy but no other abdominal surgeries. The pain is nonradiating and she is unable to identify any triggers or alleviating factors. [facility] Medical History Steatosis, liver Hepatomegaly Arthritis Diabetes GERD (gastroesophageal reflux disease) COVID-19 vaccine series completed Enlarged tongue Non-insulin dependent diabetes mellitus Adjustment disorder, unspecified Vitamin B12 deficiency Vitamin D deficiency DJD (degenerative joint disease) Morbid obesity Surgical History History of colonoscopy (~11/03/23) History of sleeve gastrectomy History of dilatation and curettage Hx of bilateral breast reduction surgery Hx of cholecystectomy Family History Mother Diabetes Father Hyperlipidemia Son Colitis Daughter No problems noted. 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 1. Little interest or pleasure in doing things: not at all 2. Feeling down, depressed, or hopeless: not at all 3. Trouble falling or staying asleep, or sleeping too much: not at all 4. Feeling tired or having little energy: not at all 5. Poor appetite or overeating: not at all 6. Feeling bad about yourself - or that you are a failure or have let yourself or your family down: not at all 7. Trouble concentrating on things, such as reading the newspaper or watching television: not at all 8. Moving or speaking so slowly that other people could have noticed. Or the opposite - being so fidgety or restless that you have been moving around a lot more than usual: not at all 9. Thoughts that you would be better off or of hurting yourself in some way: not at all Total score: 0 Source: Developed by Drs. Azar Rodriguez, Eloisa Millan, Trev Melara and colleagues, with an educational ham from [employer]. Thrive Questionnaire Date Thrive assessed: 09/20/24 I am a: Patient What is your living situation today?: I have a steady place to live Within the past 12 months, did the food you bought not last and you didn't have the money to get more?: Never true Within the past 12 months, did you worry whether your food would run out before you got money to buy more?: Never true Do you have trouble paying for medicines?: No Do you have trouble getting transportation to medical appointments?: No Do you have trouble paying your heating and electricity bill?: No Do you have trouble taking care of your child, family member or friend?: No Do you have trouble with day-to-day activities such as bathing, preparing meals, shopping, managing finances, etc.?: No Are you currently unemployed and looking for a job?: No Are you interested in more education?: No Please select the resources that you would like help with: None THRIVE Score: 0 AUDIT C Alcohol Use Questionnaire (AUDIT-C) 1. How often do you have a drink containing alcohol?: Monthly or less Total Score: 1 MARTINEZ-7 AMB Questionnaire MARTINEZ-7 Date MARTINEZ - 7 assessed: 09/20/24 Feeling nervous, anxious, or on edge: 0 = Not at all Not being able to stop or control worryin = Not at all Worrying too much about different things: 0 = Not at all Trouble relaxin = Not at all Being so restless that it is hard to sit still: 0 = Not at all Becoming easily annoyed or irritable: 0 = Not at all Feeling afraid as if something awful might happen: 0 = Not at all Total MARTINEZ-7 score (0-4 normal; 5-9 mild; 10-14 moderate; 15-21 severe): 0 Source: Developed by Drs. Azar Rodriguez, Eloisa Millan, Trev Melara and colleagues, with an educational ham from [employer]. Review of Systems Const All systems reviewed & are unremarkable except as noted in HPI and below Physical exam (Primary Care) Vital Signs: Last Vital Signs Temp 97.1 F 09/20/24 16:29 Pulse 75 09/20/24 16:29 Resp 16 09/20/24 16:29 BP 112/80 09/20/24 16:29 Pulse Ox 99 09/20/24 16:29 Oxygen Delivery Method Room Air 09/20/24 16:29 BMI result Body Mass Index 40.7 Tobacco/Smoking Status: Tobacco use Status Tobacco use date assessed 09/20/24 09/20/24 16:29 Patient Tobacco Use Status Never used Tobacco 09/20/24 16:00 PHQ-9: PHQ-9 Score PHQ-9: Total score 0 09/20/24 16:29 Thrive Assessment: Date of Thrive Assessment Date Thrive assessed 09/20/24 09/20/24 16:29 Const Other: Constitutional - Awake and Alert, No apparent distress Eyes - PERRLA, EOMI Cardiovascular - S1S2, RRR, No edema Respiratory - Normal lung expansion, Normal respiratory effort, No respiratory distress, CTA bilaterally Gastrointestinal - mild ttp of the RLQ. ND; +BS; No rebound or guarding - no CVA ttp Extremities - no calf tenderness bilaterally, no swelling Skin - Warm/Dry Neurological - Alert & oriented x3 Psychological - Appropriate affect Coding Level of Care Code New Pt Level 4 (16954) Complex EM visit Add On G2211 Diagnoses RLQ abdominal pain R10.31 Non-insulin dependent diabetes mellitus GERD (gastroesophageal reflux disease) K21.9 Morbid obesity E66.01 Assessment & Plan Assessment & Plan (1) RLQ abdominal pain: Code(s): R10.31 - Right lower quadrant pain Category: Medical Plan: Given severity of pain, recommend ER evalutation for consideration of advanced imaging and labwork. Concern for nephrolithiasis vs appendicitis, though seems less likely. Follow up in the office following visit. Called and spoke with ED provider (2) Non-insulin dependent diabetes mellitus: Category: Medical Plan: Controlled. Hgb A1c ordered. Continue diabetic diet and weight loss efforts. (3) GERD (gastroesophageal reflux disease): Code(s): K21.9 - Gastro-esophageal reflux disease without esophagitis Category: Medical Plan: Stable. Continue ppi and avoid triggering food items. (4) Morbid obesity: Code(s): E66.01 - Morbid (severe) obesity due to excess calories Category: Medical Plan: Encouraged to continue with weight loss efforts. Continue following with the weight loss clinic. Currently having issues getting weight loss medications approved through insurance. Consider prior auth Plan Present to the ED for further evaluation and management. Labs to be completed. Continue weight loss efforts. Follow up in 6 months, sooner if needed Orders: Orders Basic Metabolic Panel Today E66.01 - Morbid (severe) obesity due to excess calories Lipid Panel Today E66.01 - Morbid (severe) obesity due to excess calories TSH reflex Free T4 Today E66.01 - Morbid (severe) obesity due to excess calories Complete Blood Count Auto Diff Today E66.01 - Morbid (severe) obesity due to excess calories Hemoglobin A1c Today E66.01 - Morbid (severe) obesity due to excess calories
[2024-09-20 16:29] VITALS: BP 112/80; PULSE 75; RESP 16; TEMP 36.2; O2SAT 99; BMI 40.7
== END 2024-09-20 16:53 | disposition home or self-care (01) ==
LOC: HO.HMCHD 15:48
PROVIDERS: PCP Internal Medicine; Visit Provider Physician Assistant
DX: R10.31 Right lower quadrant pain (principal); K21.9 Gastro-esophageal reflux disease without esophagitis; E66.01 Morbid (severe) obesity due to excess calories

== ENCOUNTER → 2024-09-20 15:48 | Outpatient (BNVA) | payer OTHER, SELFPAY | PROVIDERS: PCP Internal Medicine; Visit Provider Physician Assistant | DX: E11.9 Type 2 diabetes mellitus without complications (principal); E66.813 Obesity, class 3; R10.31 Right lower quadrant pain; K21.9 Gastro-esophageal reflux disease without esophagitis; E66.01 Morbid (severe) obesity due to excess calories; Z68.41 Body mass index [BMI] 40.0-44.9, adult | CPT/HCPCS: 99202 ==

== ENCOUNTER 2024-09-20 16:57 | Emergency (ER) | payer OTHER, SELFPAY ==
--- NOTE | ~2024-09-20 | CT_ITS ---
CLINICAL HISTORY: right sided pain, hematuria CT abdomen and pelvis without contrast Comparison: None Findings: The lung bases are clear. Status post cholecystectomy. Mild right hydronephrosis and hydroureter with a 4 mm obstructing stone within the right mid ureter. No additional ureteral stone is present. Remainder of the solid organs are within normal limits. Changes related to bariatric gastric surgery. No bowel obstruction, pneumoperitoneum, or pneumatosis. Normal appendix is within the right lower quadrant. Pelvic contents unremarkable. IUD is present within the endometrium. The bones are intact. IMPRESSION: Mild right hydronephrosis and hydroureter with a 4 mm obstructing stone within the right mid ureter. This document has been electronically signed by: Monserrat Faustin MD on 09/20/2024 21:42:33
[2024-09-20 17:20] VITALS: PULSE 73; RESP 18; TEMP 36.2; O2SAT 100; BMI 40.3
[2024-09-20 17:36] LABS: MANUAL DIFF FLAG NO
[2024-09-20 17:47] LABS: Basophils Percent Auto 0.2 % (0-2); Eosinophils Percent Auto 0.2 % (0-4); Hematocrit 44.4 % (37.0-47.0); Hemoglobin 15.1 g/dl (12.0-16.0); Imm Gran Abs Auto 0.09 X10*3/uL (0.00-0.03); Imm Gran Pct Auto 0.5 % (0.0-0.4); Lymphocytes Absolute Auto 2.1 X10*3/uL (1.2-4.9); Lymphocytes Percent Auto 12.4 % (20-40); Mean Corpuscular Hemoglobin 30.3 pg (27.0-33.0); Mean Corpuscular Volume 89.2 fL (80.0-98.0); Mean Platelet Volume 9.9 fL (9.4-12.3); Monocytes Percent Auto 5.9 % (2-11); Neutrophils Absolute Auto 13.4 x10*3/uL (2.0-8.3); Neutrophils Percent Auto 80.8 % (45-73); Platelet Count 288 X10*3/uL (160-400); Red Blood Count 4.98 X10*6/uL (4.20-5.50); Red Cell Distribution Width 12.1 % (11.0-16.0); White Blood Count 16.6 X10*3/uL (4.8-10.8)
[2024-09-20 17:54] VITALS: BP 158/70; PULSE 78; RESP 18; TEMP 36.7; O2SAT 100
--- NOTE | 2024-09-20 18:01 | ED_ITS ---
HPI - General Adult General Chief complaint: Abdominal Pain Stated complaint: Abdominal pain/ sent from PCP Time Seen by Provider: 09/20/24 17:55 History of Present Illness ED Provider: Lottie MATA narrative: The patient is a 53-year-old female with a history of a cholecystectomy. She says that she has been having problems with right-sided abdominal pain that started 3 days ago on Friday. She says that the pain has been intermittent. Coming for a couple of hours at a time. It has been fairly severe. It is exclusively on the right side. She does not really feel it in her back. She says it reminds her of the pain she experienced with her gallbladder prior to her cholecystectomy. No fever, sweats, chills. She has had nausea and vomiting. No urinary symptoms. No respiratory symptoms. The patient denies dysuria, urinary urgency, or urinary frequency. Related Data Home Medications ?Medication ?Instructions ?Recorded ?Confirmed [id number] 45 mg-folic 1 cap PO DAILY 07/06/21 08/10/24 acid 800 mcg-vit K 120 mcg capsule (Bariatric Multivitamins) calcium citrate-vitamin D3 500 1 tab PO DAILY 01/21/23 08/10/24 mg-200 unit chewable tablet Previous Rx's ?Medication ?Instructions ?Recorded inulin 2 gram chewable tablet 2 g PO BID #60 tabs 07/06/21 (Fiber Gummies) docusate sodium 100 mg capsule 100 mg PO DAILY #90 caps 10/21/23 clotrimazole 1 % topical cream 1 appl topical BID #45 grams 08/24/24 cefuroxime axetil 500 mg tablet 500 mg PO BID #10 tabs 09/20/24 ibuprofen 400 mg tablet 400 mg PO Q6H PRN pain #14 tabs 09/20/24 morphine 15 mg immediate release 15 mg PO Q6H PRN pain #10 tabs 09/20/24 tablet ondansetron 4 mg disintegrating 4 mg PO Q6H PRN nausea and 09/20/24 tablet vomiting #10 tabs Allergies Allergy/AdvReac Type Severity Reaction Status Date / Time amoxicillin Allergy Severe hives Verified 09/20/24 17:20 penicillin V Allergy Severe hives Verified 09/20/24 17:20 Sulfa (Sulfonamide Allergy Severe hives Verified 09/20/24 17:20 Antibiotics) erythromycin base Allergy Hives Verified 09/20/24 17:20 Penicillins Allergy Hives Verified 09/20/24 17:20 sulfamethoxazole Allergy Hives Verified 09/20/24 17:20 [From Bactrim] trimethoprim [From Bactrim] Allergy Hives Verified 09/20/24 17:20 Review of Systems 2 Review of Systems: Yes all other systems are reviewed and are negative PMFSH Past Medical History Medical History Steatosis, liver Hepatomegaly Arthritis Diabetes GERD (gastroesophageal reflux disease) COVID-19 vaccine series completed Enlarged tongue Non-insulin dependent diabetes mellitus Adjustment disorder, unspecified Vitamin B12 deficiency Vitamin D deficiency DJD (degenerative joint disease) Morbid obesity Surgical History History of colonoscopy (~11/03/23) History of sleeve gastrectomy History of dilatation and curettage Hx of bilateral breast reduction surgery Hx of cholecystectomy Family History Family History Mother Diabetes Father Hyperlipidemia Son Colitis Daughter No problems noted. 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 to a significant other at home: Yes (2 children 21 yr old and 16 yr old) Do you presently have visiting nurse or other home services: No Alcohol intake: current Alcohol intake frequency: holidays/special occasions only Comment: Aware of trip hazard Patient Tobacco Use Status: Never used Tobacco service: No Current occupational status: employed Cognitive needs: No Hearing needs: No Vision needs: Yes (Rx glasses, contacts) Physical Exam ED Vital Signs: Vital Signs - 24 hr 09/20/24 17:20 09/20/24 17:54 09/20/24 20:20 Temperature 97.2 F 98.1 F Pulse Rate 73 78 83 Respiratory Rate 18 18 16 Blood Pressure 158/70 H 133/85 Pulse Oximetry 100 100 98 Oxygen Delivery Method Room Air Room Air Room Air 09/20/24 22:08 09/20/24 23:00 Temperature 97.9 F 97.9 F Pulse Rate 83 83 Respiratory Rate 16 16 Blood Pressure 142/77 H 142/77 H Pulse Oximetry 98 98 Oxygen Delivery Method Room Air Room Air BMI result Body Mass Index 40.3 Const Other: The patient is awake and alert. She looks uncomfortable. She is very pleasant and cooperative. HENMT Other: Face is symmetrical, mucous membranes moist Eyes General: appearance normal, both eyes and all related structures Neck Neck: Yes full ROM Resp Effort & Inspection: normal respiratory effort Auscultation: clear to auscultation bilaterally Cardio Rate: regular rate Rhythm: regular rhythm Heart sounds: S1 normal heart sound present and S2 normal heart sound present GI Other: The patient had some right lower quadrant tenderness. Back/Spine/Pelvis Other: There was some equivocal possible right CVA percussion tenderness Skin Other: Skin is dry and unremarkable Neuro Other: The patient is awake and alert with a normal mental status. Cranial nerves 2-12 are grossly intact. She moves her extremities symmetrically and appropriately. She is grossly neurologically intact. Extrem Other: No peripheral edema Medications Administered Discontinued Medications Generic Name Dose Route Start Last Admin Trade Name Freq PRN Reason Stop Dose Admin Ceftriaxone Sodium 1 gm 09/20/24 22:26 09/20/24 23:00 Ceftriaxone Sodium 1 Gm Vial IVPUSH 09/20/24 22:27 1 gm ONCE ONE Administration Sodium Chloride 1,000 mls @ 999 mls/hr 09/20/24 18:15 09/20/24 19:10 Ns IV 09/20/24 19:15 Infused .Q1H1M BIPIN Infusion Sodium Chloride 1,000 mls @ 999 mls/hr 09/20/24 20:45 09/20/24 21:51 Ns IV 09/20/24 21:45 Infused .Q1H1M BIPIN Infusion Ketorolac Tromethamine 15 mg 09/20/24 18:05 09/20/24 18:09 Ketorolac Tromethamine 15 Mg/Ml Vial IVPUSH 09/20/24 18:06 15 mg ONCE ONE Administration Ondansetron HCl 4 mg 09/20/24 18:05 09/20/24 18:09 Ondansetron Hcl 4 Mg/2 Ml Vial IVPUSH 09/20/24 18:06 4 mg ONCE ONE Administration Medical Decision Making Medical Decision Making [facility] Narrative: The patient is a 53-year-old female with a history of a cholecystectomy who presents with intermittent episodes of right-sided abdominal pain that she seems to feel primarily in the right lower quadrant. She does not really feel it in her flank or in her back. She says the pain feels like the pain she had before her cholecystectomy. She is afebrile with unremarkable other vital signs. Her white count was 16.6. CRP minimally elevated at 0.55. Urinalysis shows 3+ blood and greater than 20 red cells. There are 11-20 white cells and 1+ bacteria. CT scan of the abdomen and pelvis shows a right mid ureter 4 mm calculus with associated right-sided hydronephrosis. I think the patient's primary issue today is ureteral colic secondary to a 4 mm stone in the right mid ureter causing hydronephrosis. The patient has urinalysis is slightly suggestive of the possibility of a UTI with the patient has no symptoms of a UTI. My overall suspicion is very low that the patient has a true UTI associated with her kidney stone today. Nevertheless given her abnormal urinalysis she will be placed on antibiotics. The patient had initially been given ketorolac with excellent improvement in her pain. She was given IV fluids. Ultimately she was also given 1 g of ceftriaxone IV. She felt sufficiently well after the ketorolac and several hours of observation that I felt she was appropriate for discharge. She will be prescribed pain medications as well as ondansetron. She will also be placed on a course of cefuroxime and to cover for the any possibility of UTI although my suspicion is low. She should return if worse. She should follow up with her PCP and/or Urology. Lab Data 09/20/24 17:30 09/20/24 17:30 Labs: Lab Results 09/20/24 09/20/24 Range/Units 17:30 18:51 WBC 16.6 H (4.8-10.8) X10*3/uL RBC 4.98 (4.20-5.50) X10*6/uL Hgb 15.1 (12.0-16.0) g/dl Hct 44.4 (37.0-47.0) % MCV 89.2 (80.0-98.0) fL MCH 30.3 (27.0-33.0) pg MCHC 34.0 (31.0-35.0) g/dl RDW 12.1 (11.0-16.0) % Plt Count 288 (160-400) X10*3/uL MPV 9.9 (9.4-12.3) fL Immature Gran % (Auto) 0.5 H (0.0-0.4) % Neut % (Auto) 80.8 H (45-73) % Lymph % (Auto) 12.4 L (20-40) % [place] % (Auto) 5.9 (2-11) % Eos % (Auto) 0.2 (0-4) % Baso % (Auto) 0.2 (0-2) % Lymph # (Auto) 2.1 (1.2-4.9) X10*3/uL [place] # (Auto) 1.0 (0.1-1.2) X10*3/uL Eos # (Auto) 0.0 (0.0-0.4) X10*3/uL Baso # (Auto) 0.0 (0.0-0.2) X10*3/uL Abs Immat Gran (auto) 0.09 H (0.00-0.03) X10*3/uL Absolute Neuts (auto) 13.4 H (2.0-8.3) x10*3/uL Absolute Nucleated RBC 0.000 (0.0-0.012) X10*3/uL Nucleated RBC % (auto) 0.0 (0.0-0.2) /100WBC Sodium 139 (135-145) mmol/L Potassium 4.4 (3.3-5.1) mmol/L Chloride 103 (96-108) mmol/L Carbon Dioxide 25 (22-29) mmol/L Anion Gap 15 (12-20) BUN 15 (9-16) mg/dL Creatinine 0.81 (0.5-1.4) mg/dL Estim Creat Clear Calc 94.3 Estimated GFR > 60 Random Glucose 152 H (60-115) mg/dL Calcium 10.1 (8.4-10.2) mg/dL Total Bilirubin 0.5 (0.0-1.0) mg/dL AST 19 (5-31) U/L ALT 22 (0-31) U/L Alkaline Phosphatase 75 (39-117) U/L C-Reactive Protein 0.55 H (< or = 0.50) mg/dL Total Protein 7.4 (6.5-8.0) g/dL Albumin 4.3 (3.5-5.0) g/dL Lipase 27 (8-78) U/L Beta HCG, Quant < 2 mIU/mL Urine Color Dark Yellow Urine Appearance Cloudy Urine pH 7.0 (5.0-9.0) Ur Specific [place] 1.020 (1.005-1.025) Urine Protein 30 (1+) H (Neg-Trace) mg/dL Urine Glucose (UA) Negative (Negative) mg/dL Urine Ketones Trace (Negative) mg/dL Urine Blood Large (3+) H (Negative) Urine Nitrite Negative (Negative) Ur Leukocyte Esterase Small (1+) H (Negative) Urine RBC >20 H (0-2) /HPF Urine WBC 11-20 H (0-5) /HPF Ur Squamous Epith Cells 3-5 (0-2) /HPF Urine Bacteria 1+ (None Seen) Hyaline Casts 0-2 (0-2) /LPF Discharge Plan Discharge Clinical Impression: Ureteral colic, Right ureteral calculus Patient Disposition: Home, Self-Care Instructions: Kidney Stones (ED), Renal Colic (ED) Additional Instructions: You have a 4 mm stone in the middle of your right ureter. Stones of the size usually will pass on their own without any procedures. The treatment in this case is to treat your pain as the stone passes on its own. My hope is that it will pass in the next day or 2. You may use 2 extra-strength acetaminophen (Tylenol) every 8 hours as needed for pain. You may take 400 mg of ibuprofen every 6 hours as needed for pain. I have sent a prescription for morphine tablets that you may use in addition to these other medications as needed for pain. Also I have sent a prescription for ondansetron (Zofran) which you may use as needed for nausea. Your urine test today is very slightly suspicious for the possibility of a urine infection. I think it is unlikely you have an infection. Nevertheless I think it would be reasonable for you to take antibiotics until the culture has resulted. Please take the cefuroxime 2 times a day. Take your 1st dose on Friday evening. Please contact your primary care doctor's office. You may follow up with them since this is a small stone. However if they wish you to see the urologist please contact the urology office. If at any point you develop a fever or significantly worsening pain, or vomiting, return to the emergency room. Prescriptions: New ondansetron 4 mg tablet,disintegrating 4 mg PO Q6H PRN (Reason: nausea and vomiting) Qty: 10 0RF morphine 15 mg tablet 15 mg PO Q6H PRN (Reason: pain) Qty: 10 0RF Rx Instructions: Partial Fill upon patient request. ibuprofen 400 mg tablet 400 mg PO Q6H PRN (Reason: pain) Qty: 14 0RF cefuroxime axetil 500 mg tablet 500 mg PO BID Qty: 10 0RF No Action docusate sodium 100 mg capsule 100 mg PO DAILY Qty: 90 3RF clotrimazole 1 % cream 1 appl topical BID Qty: 45 3RF Bariatric Multivitamins 45 mg iron- 800 mcg-120 mcg capsule 1 cap PO DAILY Fiber Gummies 2 gram tablet,chewable 2 g PO BID Qty: 60 6RF calcium citrate-vitamin D3 500-200 mg-unit tablet,chewable 1 tab PO DAILY Referrals: [facility] [Provider Group] (first time ureteral colic 4,mm stone) Ramin Segovia MD [Primary Care Provider] - Stand Alone Forms: Work/School Release Interventions: ED Discharge Assessment Last Done: 09/20/24 23:00 Discharge Date/Time: 09/20/24 23:00 Print Language: Martiniquais
[2024-09-20 18:03] LABS: Alanine Aminotransferase 22 U/L (0-31); Albumin Level 4.3 g/dL (3.5-5.0); Alkaline Phosphatase 75 U/L (39-117); Anion Gap 15 (12-20); Aspartate Amino Transferase 19 U/L (5-31); Bilirubin Total 0.5 mg/dL (0.0-1.0); Blood Urea Nitrogen 15 mg/dL (9-16); Calcium 10.1 mg/dL (8.4-10.2); Carbon Dioxide 25 mmol/L (22-29); Chloride 103 mmol/L (96-108); Creatinine Clr Calc Pharmacy 94.3; Estimated Glomerular Filt Rate > 60; Glucose Random 152 mg/dL (60-115); Lipase 27 U/L (8-78); Potassium 4.4 mmol/L (3.3-5.1); Sodium 139 mmol/L (135-145); Total Protein 7.4 g/dL (6.5-8.0)
[2024-09-20] MEDS: ondansetron HCL 4 MG/2 ML VIAL IVPUSH (18:09)
[2024-09-20] MEDS: Ketorolac Tromethamine 15 MG/ML VIAL IVPUSH (18:09)
[2024-09-20] MEDS: 0.9 % Sodium Chloride 1,000 ML 999 ML IV ×2 (18:09→20:50)
[2024-09-20 18:44] LABS: C Reactive Protein 0.55 mg/dL (< or = 0.50)
[2024-09-20 20:20] VITALS: BP 133/85; PULSE 83; RESP 16; O2SAT 98
[2024-09-20 20:39] LABS: Appearance Urine Cloudy; Glucose Urine UA Negative (Negative); Leukocyte Esterase Urine Small (1+) (Negative); Nitrite Urine Negative (Negative); UMIC TRIGGER UACC YES; Urine Blood Large (3+) (Negative); Urine Ketones Trace mg/dL (Negative); Urine Protein 30 (1+) mg/dL (Neg-Trace)
[2024-09-20 20:40] LABS: Color Urine Dark Yellow
[2024-09-20 20:41] LABS: Bacteria Urine 1+ (None Seen); Hyaline Casts Urine 0-2 /LPF (0-2); RBC Urine >20 /HPF (0-2); UACC Culture Trigger YES
[2024-09-20 21:18] LABS: HCG Quantitative < 2 mIU/mL
[2024-09-20 22:08] VITALS: BP 142/77; PULSE 83; RESP 16; TEMP 36.6; O2SAT 98
[2024-09-20 23:00] VITALS: BP 142/77; PULSE 83; RESP 16; TEMP 36.6; O2SAT 98
[2024-09-20] MEDS: cefTRIAXone sodium 1 GM VIAL IVPUSH (23:00)
== END 2024-09-20 23:00 | disposition home or self-care (01) ==
PROVIDERS: Emergency Provider Emergency Medicine; PCP Internal Medicine
DX: N13.2 Hydronephrosis with renal and ureteral calculous obstruction (principal); R10.9 Unspecified abdominal pain; E66.9 Obesity, unspecified; Z68.41 Body mass index [BMI] 40.0-44.9, adult
CPT/HCPCS: 36415; 74176; 80053; 81001; 81003; 83690; 84702; 85025; 86140; 87086; 96361; 96374; 96375; 99284; J0696; J1885; J2405

== ENCOUNTER → 2024-09-20 20:48 | Outpatient (BNV) | payer OTHER, SELFPAY | PROVIDERS: Emergency Provider Emergency Medicine; PCP Internal Medicine; Visit Provider Student in an Organized Health Care Education/Training Program | DX: R10.9 Unspecified abdominal pain (principal); R31.9 Hematuria, unspecified | CPT/HCPCS: 74176 ==

== ENCOUNTER 2024-09-28 09:05 | Outpatient (AMB) | payer OTHER, SELFPAY ==
--- NOTE | 2024-09-28 09:14 | A.OFFVIS_ITS ---
VS Expanded 09/28/24 09:23 BP 131/80 Blood Pressure Location Rt brachial Blood Pressure Position Sitting Pulse 99 Pulse Source Pulse Oximeter Temp 96.6 F L Temperature Source Temporal Artery Scan Pulse Oximetry 96 Oxygen Delivery Method Room Air Height 5 ft 3 in Weight 232 lb BMI 41.1 Body Fat % 49.0 Body Fat Mass 113.8 Fat Free Mass 118.2 Visceral Fat Rating 15.0 Body Water % 36.3 Body Water Mass 84.2 Muscle Mass/Score 112.2 Basal Metabolic Rate/Score 1,685 Intake Visit Reasons: OV PO LSG 12/07/20 *GLP-1* Allergies amoxicillin Allergy (Severe, Verified 09/28/24 09:16) hives penicillin V Allergy (Severe, Verified 09/28/24 09:16) hives Sulfa (Sulfonamide Antibiotics) Allergy (Severe, Verified 09/28/24 09:16) hives erythromycin base Allergy (Verified 09/28/24 09:16) Hives Penicillins Allergy (Verified 09/28/24 09:16) Hives sulfamethoxazole [From Bactrim] Allergy (Verified 09/28/24 09:16) Hives trimethoprim [From Bactrim] Allergy (Verified 09/28/24 09:16) Hives HPI Comments Details: This?is a?53?yo female who is s/p LSG 12/07/2020. Weight gain of 4lbs since last OV last month.? No complaints of nausea, emesis, abdominal pain or reflux, or constipation. Present meal plan includes: 2 premier shakes, 1 Fitcrunch bar, 1 meal of 4 forks protein, 4 forks salad/veg loses motivation partway through the week gave her Right BMI cornelius previously but pt reports custodial through the week I give up Exercise routine includes: walking or [employer] previously, but hasn't had time- hasn't exercised since her mom had a stroke in September 2022 Pt continues to have difficulty with excess skin which is heavy and affects activities of daily living. Has to keep clean and dry to prevent painful rashes and open areas in skin folds and uses clotrimazole which helps somewhat, and wear special clothing (compressive girdle) to avoid discomfort. If she sweats and sweat collects in skin fold, she notices an unpleasant odor. Pt reports both of her parents have had strokes. She has a history of high blood pressure and had taken meds for this. In review of recent blood pressure readings- she has had multiple high readings last week > 140 systolic. She had a reading as high as 158 systolic last week. Today her BP is greater than 130 systolic. [facility] Medical History Steatosis, liver Hepatomegaly Arthritis Diabetes GERD (gastroesophageal reflux disease) COVID-19 vaccine series completed Enlarged tongue Non-insulin dependent diabetes mellitus Adjustment disorder, unspecified Vitamin B12 deficiency Vitamin D deficiency DJD (degenerative joint disease) Morbid obesity Surgical History History of colonoscopy (~11/03/23) History of sleeve gastrectomy History of dilatation and curettage Hx of bilateral breast reduction surgery Hx of cholecystectomy Family History Mother Diabetes Father Hyperlipidemia Son Colitis Daughter No problems noted. Social History Housing: House Are you a primary career information specialist to a significant other at home: Yes (2 children 21 yr old and 16 yr old) Do you presently have visiting nurse or other home services: No Alcohol intake: current Alcohol intake frequency: holidays/special occasions only Comment: Aware of trip hazard Patient Tobacco Use Status: Never used Tobacco service: No Current occupational status: employed Cognitive needs: No Hearing needs: No Vision needs: Yes (Rx glasses, contacts) Assessment & Plan Assessment & Plan (1) S/P laparoscopic sleeve gastrectomy: Code(s): Z98.84 - Bariatric surgery status Category: Surgical (2) Morbid obesity: Code(s): E66.01 - Morbid (severe) obesity due to excess calories Category: Medical (3) Excess skin: Code(s): L98.7 - Excessive and redundant skin and subcutaneous tissue Category: Medical Plan Due to pt's recent high BP readings, I do not feel comfortable considering her a candidate for phentermine. Will request another review by insurance to ask if GLP1 med is a possibility due to this contraindication to phentermine. RTC 3mo.
[2024-09-28 09:23] VITALS: BP 131/80; PULSE 99; TEMP 35.9; O2SAT 96; BMI 41.1
--- OUTSIDE RECORDS SUMMARY | 2024-09-28 09:46 | XMS_ITS | Data Portability ---
Author Organization [facility], [facility] Address [address] [place] [address] Care Team Providers Care Clinical Documentation Specialist Name Role Phone JULIO GRIJALVA Primary Care [...] knee 4v 2024 05 025 bpuchalski 1 [facility], [address] [facility], [facility] [address], [place], [address], 09/16/2024 12:30:27 Medication Orders None recorded. Patient [...] a4ajBk vP9nXo QUaueC m3YtLR FvZlgJ JJ8mAn HZtai3 9s6746 AC0Kla nqBUKq lKiQtr MwF INTERFACE [facility] [address], [place], [address], 09/16/2024 09:17:56 09/17/19 25 09/16/2024 XR, knee, 4 or more view http:/ [email or web address] ?Encry pted=s hAaTro YD8dLq bEUv6g %2BXZw aYqtaq 0bqfl% 2Fg9IQ a4ajBk vP9nXo QUaueC m3YtLR FvZlgJ JJ8mAn HZtai3 7w4849 AC0Kla nqBUKq lKiQtr MwF INTERFACE [facility] [address], [place], [address], 09/16/2024 09:17:58 Result Notes None recorded. Problems Name Problem SNOMED Code Status Onset Date Resolution Date Notes Provider Name and Address Organization Details Recorded Time No complaints 691767929 Active Status : 'A'; Not Available [facility] 4 09:11:40 Osteoarthriti s of knee 731583385 Active 2023 Tobin Stewart PA-C [address], [place], [address] , [facility] 4 08:34:21 Problem Notes None recorded. Procedures Surgical History Date Name Laterality Status Provider Name and Address Organization Details Recorded Time 5 Knee Kenalog 40 1cc Injection, Bilateral completed Francisco Zhong PA-C [address], [place], [address], [facility] 09/16/2024 09:44:00 5 Knee Kenalog 40 1cc Injection, Bilateral completed Francisco Zhong PA-C [address], [place], [address], [facility] 06/18/2024 09:39:39 4 Euflexxa Knee Injection completed Francisco Zhong PA-C [address], [place], [address], [facility] 04/02/2024 07:52:26 4 Euflexxa Knee Injection Corky completed Francisco Zhong PA-C [address], [place], [address], [facility] 03/26/2024 08:18:06 4 Knee Kenalog 40 1cc Injection, Bilateral completed Francisco hZong PA-C [address], [place], [address], [facility] 03/19/2024 07:58:08 4 Euflexxa Knee Injection completed Francisco Zhong PA-C [address], [place], [address], [facility] 03/19/2024 07:58:10 4 Knee Kenalog 40 1cc Injection, Bilateral completed Francisco Zhong PA-C [address], [place], [address], [facility] 12/17/2023 13:22:32 4 Knee Kenalog 40 1cc Injection, Bilateral completed Maxine Molina PA-C [address], [place], [address], [facility] 09/16/2023 08:41:13 4 Euflexxa Knee Injection completed Tobin Stewart PA-C [address], [place], [address], [facility] 07/25/2023 08:34:03 1 Bariatric Surgery completed Deepti Montalvo [facility] 09/16/2024 09:02:35 Imaging Results Imaging Date Name Status LastModified by Organiz ation Details LastModified Time 09/16/2024 XR, knee, 4 or more view completed INTERFACE [facility] [address], [place], [address], 09/16/2024 09:17:56 09/16/2024 XR, knee, 4 or more view completed [facility]FACE [facility] [address], [place], [address], 09/16/2024 09:17:58 Procedure Notes None recorded. Medical Equipment None Reported. Allergies Allergen ID Allergen Name Allergen Category Reaction Reaction Severity Criticality Documentation Date Start Date Code Code System Note Provider Name and Address Organization Details Recorded Time 31347 erythromy kartik medicatio n Not available Not available Not available 07/14/20232018 4053 RxNorm Not Available [facility] 4 11:09:29 41797 amoxicill in trihydrat e medicatio n Not available Not available Not available 07/14/20232018 41737 8 RxNorm Not Available [facility] 4 11:09:29 76024 Bactrim medicatio n Not available Not available Not available 07/14/20232018 24024 9 RxNorm Not Available [facility] 4 11:09:29 61141 Product containin g penicilli n (product) medicatio n Not available Not available Not available 07/14/20232018 98349 8001 SNOMED Not Available [facility] 4 11:09:29 Medications Name Sig Start Date [...] 03/19/2024 160.02 cm 5 /min MANFRED ELYSE [facility] 03/19/2024 07:50:56 Date Recorded Body height Provider Name an d Address Organization Details Last Updated DateTime 03/26/2024 160.02 cm Deepti Montalvo [facility] 03/26/2024 07:36:09 Date Recorded Body height Body mass index (BMI) Body weight Provider Name and Address Organization Details Last Updated DateTime 04/02/2024 160.02 cm 31.5 kg/m2 66058.44 [facility] 04/02/2024 07:36:39 Date Recorded Body height Body mass index (BMI) Body weight Provider Name and Address Organization Details Last Updated DateTime 06/18/2024 160.02 cm 31.5 kg/m2 02714.44 [facility] 06/18/2024 08:21:55 Date Recorded Body height Body mass index (BMI) Body weight Provider Name and Address Organization Details Last Updated DateTime 09/16/2024 160.02 cm 31.9 kg/m2 93579.63 [facility] 09/16/2024 09:03:05 Social History None recorded. Functional Status None recorded. Mental Status None recorded. Family History Nothing Reported. Medical History Condition Response Coronary Artery Disease N Anxiety/Depression N Emphysema N COPD N Pacemaker N Vascular Disease N Heart Trouble N Gastrointestinal Disease N Autoimmune disease N Inflammatory Joint disease N Orthotics N Arthritis N Blood Clot N Acid Reflux (GERD) N Cancer N Stroke N Circulation Problems N Rheumatoid Arthritis N Arrhythmia N Headaches N Fibromyalgia N Allergies/Hayfever N Breathing or lung disorders N Nerve Disorders N Thyroid Problems N Kidney/Bladder Problems N Anemia N Heart Attack (SC) N Cholesterol N Diabetes N Bleeding Disorder N Seizures/Epilepsy N AIDS/HIV N Congestive Heart Failure (CHF) N Asthma N Peripheral Vascular Disease N Sleep Apnea N Hepatitis N Heart Disease N Pulmonary Embolism N Hypertension N Osteoporosis N Gynecological HistoryNo gynecological history recorded. Obstetrics History GPAL:G 0 P 0 0 0 0 Past Encounters Encounter ID Performer Location Encounter Start Date Encounter Closed Date Diagnosis/Indication Diagnosis SNOMED-CT Code Diagnosis ICD10 Code Diagnosis Note [id number] Tobin Stewart PA-C [facility] [address] [place] [address] 07/25/2023 08:26:29 08/13/2023 10:22:45 Osteoarthritis of knee 839802277 M17.9 [id number] Maxine Molina PA-C [address] [place] [address] 09/16/2023 08:24:49 10/09/2023 09:19:21 Bilateral osteoarthritis of knees 1376373510 70066 M17.0 [id number] Francisco Zhong PA-C [address] [place] [address] 12/17/2023 12:50:43 12/17/2023 13:28:09 Bilateral osteoarthritis of knees 6062900677 40253 M17.0 You have been provided with a [...] or contact us through the portal LINDSA[facility]. [id number] [facility] [address] [place] [address] 03/19/2024 07:35:26 04/05/2024 19:22:41 Primary gonarthrosis, bilateral 508226195 M17.0 You have been provided with a [...] or contact us through the portal LINDSAY. [id number] [facility] [address] [place] [address] 03/26/2024 07:27:49 04/15/2024 06:14:23 Primary gonarthrosis, bilateral 142253512 M17.0 You have been provided with a [...] or contact us through the portal [facility]INDSA[facility]. [id number] [facility] [address] [place] [address] 04/02/2024 07:30:13 04/26/2024 14:21:54 Primary gonarthrosis, bilateral 856132034 M17.0 You have been provided with a [...] office or contact us through the portal [facility]. [id number] [facility] [address] [place] [address] 06/18/2024 08:13:47 07/06/2024 11:19:59 Primary gonarthrosis, bilateral 905364060 M17.0 You have been provided with a [...] or contact us through the portal LINDSAY. [id number] [facility] [address] [place], [place] [address] 09/16/2024 08:58:40 09/16/2024 09:44:23 Pain of knee region 9382791686 M25.561 M25.562 G89.29 Primary go narthrosis, bilateral 022312001 M17.0 You have been provided with a [...] Sheppard Member ID Guarantor Name 03/19/2024 1 [facility] [employer] (HMO) [id number] Arminda Pathak [id number] Arminda Pathak 03/26/2024 1 [facility] - [employer] (HMO) [id number] Arminda Pathak [id number] Arminda Pathak 04/02/2024 1 [facility] [employer] (HMO) [id number] Arminda Pathak [id number] Arminda Pathak 06/18/2024 1 [facility] (MEDICAID REPLACEMENT - HMO) [id number] Arminda Pathak [id number] Arminda Pathak 09/16/2024 1 [facility] (MEDICAID HMO) [id number] Pathak [id number] Arminda Pathak Notes Date Note Type Note [...] Zhong PA-C [address], [place], [address], [facility] 03/19/2024 07:59:04 03/26/2024 text/html I am seeing the patient today under the supervision of {{Dr. Norma Hernandez* Dr. Zain Schaeffer}} who was available but who did not see the patient. Patient is in today for {{Euflexxa* gelsyn h ymovis Hyalgan}} {{#1 #2* #3}} injection of the {{left right bilater al*}} knee. Injection site benign Francisco Zhong PA-C [address], [place], [address], [facility] 03/26/2024 08:18:34 04/02/2024 text/html I am seeing the patient today under the supervision of {{Dr. Norma Schaeffer}} who was available but who did not see the patient. Patient is in today for {{Euflexxa* gelsyn h ymovis Hyalgan}} {{#1 #2 #3*}} injection of the {{left right bilater al*}} knee. Injection site benign Francisco Zhong PA-C [address], [place], [address], [facility] 04/02/2024 07:54:07 06/18/2024 text/html I am [...] total joint arthroplasty. Francisco Zhong PA-C [address] [facility] [address], [place], [address], [facility] 06/18/2024 09:40:01 09/16/2024 text/html [...] lateral compartment right knee does have advanced digc-mb-bvnh arthritis of the patellofemoral joint on the [...] Repeat gel auth. Francisco Zhong PA-C [address] [facility] [address], [place], [address], [place] [facility] 09/16/2024 09:44:21 OBGyn Episode No OBEpisode recorded.
--- OUTSIDE RECORDS SUMMARY | 2024-09-28 09:46 | XMS_ITS ---
Author Organization [facility] Address [address] [place] [address] Care Team Providers Care Plant And Equipment Worker Name Role Phone Elijah Bedolla MD Primary Care Provider Azar Stubbs [phone] REASON FOR VISIT screening Problems Problem Type SNOMED Code ICD Code Onset Dates Problem Status W/U Status Risk Notes Problem Diverticular disease of colon (415427549) Diverticulosis of large intestine without perforation or abscess without bleeding (K57.30) Active confirmed Encounters Encounter Location Date Provider Diagnosis [facility] Outpatient [address] [place] [phone] 11/03/2023 Azar Simmons Encounter for scre ening [...] * YULIA BARRYDOB:1970 ( 53 yo F)Acc No.[id number]:11/03/2023 COLON WITH MAC Patient:?YULIA BARRY Provider:?Azar Simmons MD :1970???Age:52 Y???Sex:Female D ate:11/03/2023 Address:[address] [place] [address] , [id number] Pcp:Elijah Bedolla MD Subjective: * Chief Complaints: * ???1. Screening. * Medical History:? Objective: * Vitals:? Assessment: * Assessment: 1.?Encounter for screening c olonoscopy - Z12.11 (Primary)???2.?Diverticulosis of large intestine without perforation or abscess without bleeding - K57.30???3.?Other hemorrhoids - K64.8??? Plan: * Treatment: * Procedure Codes:?78963 DIAGN OSTIC COLONOSCOPY * * The named appointment provid er may or may not be the originator of this progress note, and it is not deemed complete until electronically signed by the appointment provider. Sign off status: Pending * Provider:?Azar Simmons MD Date:? 024 Generated for Krystle lopez/Matt/eTransmitting on:?09/28/2024 09:45 AM EDT
--- OUTSIDE RECORDS SUMMARY | 2024-09-28 09:46 | XMS_ITS | Patient Health Record ---
Author Organization [facility] Address [address] [facility] [address] [place] [address] Care Team Providers Care Cad Intern Name Role Phone YAMILEX GRIJALVA M.D. Primary Care Provider ASHA Michael Unavailable [phone] Allergies Allergen (clinical drug ingredient) Drug/Non Drug [...] Problem Type II diabetes mellitus without complication (907825905) Type 2 diabetes mellitus without complications (E11.9) Active confirmed Problem Irregular menstruation (24071593) Irregular menstruation, unspecified (N92.6) Active confirmed Problem Abnormal uterine bleeding (16937415897219) Abnormal uterine and vaginal bleeding, unspecified (N93.9) Active confirmed Problem Body mass index 40+ - severely obese (896900610) Body mass index (BMI) 45.0-49.9, adult (Z68.42) Active confirmed Problem Intrauterine contraceptive device in situ (finding) (781377040) Presence of (intrauterine) contraceptive device (Z97.5) Active confirmed Problem Body mass index 40+ - morbidly obese (053194776) Body mass index (BMI) 50.0-59.9, adult (Z68.43) Active confirmed Problem COVID-19 (457155339) COVID-19 (U07.1) Active confirmed Vital Signs Temperature 97.8 degrees Fahrenheit 02/16/2024 Blood pressure diastolic 82 mm Hg 02/16/2024 Height 63.5 in 02/16/2024 Blood pressure systolic 110 mm Hg 02/16/2024 Weight 224 lbs 02/16/2024 BMI 39.05 kg/m2 02/16/2024 Encounters Encounter Location Date Provider Diagnosis [address] [address] 02/16/2024 ASHA NORIEGA Encounter for gynecological examination [...] Provider Name:ASHA Lai, 02/22/2025 03:30:00 PM, [address], [place], [address], Insurance Providers Payer Name Payer Address Payer Phone Subscriber Number Group Number Insured Name Patient Relationship to Insured Coverage Start Date Coverage End Date [facility] [address] [address] [place] [id number] YULIA BARRY Self - patient is the [...]
--- OUTSIDE RECORDS SUMMARY | 2024-09-28 09:46 | XMS_ITS ---
Author Organization [facility] Address [address] [place] [address] Care Team Providers Care Director Apparel Name Role Phone Elijah Bedolla MD Primary Care Provider Azar Stubbs Unavailable [phone] Allergies Allergen (clinical drug ingredient) Drug/Non Drug [...] Status Risk Notes Problem Colon cancer screening (908448132) Colon cancer screening (Z12.11) Active confirmed Problem Pre-procedure evaluation check (999609948) Encounter for other preprocedural examination (Z01.818) Active confirmed Vital Signs Temperature 97.5 degrees Fahrenheit 07/29/19 24 Blood pressure systolic 00 mm Hg 07/29/19 24 Blood pressure diastolic 00 mm Hg 024 Height 5 ft 3 in in 07/29/2023 Weight 213 lbs 07/29/2023 BMI 37.73 kg/m2 07/29/2023 Encounters Encounter Location Date Provider Diagnosis [facility] [address] [place] [address] 07/29/2023 Azar Simmons Colon cancer screeni ng [...] * ARMINDA BARRYDOB:1970 ( 52 yo F)Acc No.[id number]:07/29/2023 Progress Notes Patient:?ARMINDA BARRY Provider:?Azar Simmons MD :1970???Age:52 Y???Sex:Female D ate:07/29/2023 Address:[address] , [id number] Pcp:Elijah Bedolla MD Subjective: * Chief Complaints: [...] History:?Cholecyste ctomy BREAST REDUCTION Sleeve gastrectomy at [facility] - lost 85# * Hospitalization/Major Diagno stic [...] point),?Points?0,?Interpretation?Negative.?Miscellaneous:?Marital status: . 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 ???Nonsmoker; no sig alcohol. * Medications:?TakingJun 1.5-30 [...] Procedure Codes:?3017F COLOR ECTAL CA SCREEN DOC [id number] TOBACCO NON-WUTUT5279 BP SCR NOT PRFRM REC REASON NOS * Preventive Medicine:? ??Counseling:?Care goal follow-up plan:?Above Normal BMI Follow-up?Giving encouragement to exercise,?BMI management provided?Yes.? * Follow Up:?prn * * Sign off status: Completed true * Provider:?Azar Simmons MD Date:? 024 Generated for Krystle lopez/Matt/Pinkyitting on:?09/28/2024 09:46 AM EDT History and Physical Notes * HPI [...]
--- OUTSIDE RECORDS SUMMARY | 2024-09-28 09:46 | XMS_ITS | Patient Health Record ---
Author Organization [facility] Address [address] [place] [address] Care Team Providers Care Diesel Engine Specialist Name Role Phone Elijah Bedolla MD Primary Care Provider Azar Stubbs Unavailable [phone] Allergies Allergen (clinical drug ingredient) Drug/Non Drug Allergy documented on EMR Reaction Allergy Type Onset Date Status erythromycin Erythromycin Unknown Drug Allergy A ctive sulfamethoxazole / trimethoprim Bactrim Unknown Drug Allergy Active Results Component Value Reference Range Notes Ur Preg Test Reviewed date:11/03/2023 10:24:08 PM Interpretation: Performing Lab:[facility], [address] [place] [address] Notes/Report: Urine NEGATIVE NEGATIVE This test was [...] Status Risk Notes Problem Colon cancer screening (608573737) Colon cancer screening (Z12.11) Active confirmed Problem Pre-procedure evaluation check (313375749) Encounter for other preprocedural examination (Z01.818) Active confirmed Problem Diverticulosis o f large intestine without perforation or abscess without bleeding (K57.30) Active confirmed Encounters Encounter Location Date Provider Diagnosis [facility] Outpatient [address] [place], [place] [phone] 11/03/2023 Azar Simmons Encounter for scre ening [...] Insured Coverage Start Date Coverage End Date [facility] [address] [address] [place], [place] [id number] YULIA BARRY Self - patient is the insured Medical (General) History Medical History History ICD Code Denies [place],DM,CVA,Lung disease,renal dise ase Surgical History Surgery Date(Month/Year) Cholecystectomy BREAST REDUCTION Sleeve gastrectomy at [facility] -lost 85#
--- OUTSIDE RECORDS SUMMARY | 2024-09-28 09:46 | XMS_ITS ---
Author Organization [facility] Address [address] [address] Care Team Providers Care Machine Etcher Name Role Phone YAMILEX GRIJALVA M.D. 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 Physical Encounters Encounter Location Date Provider Diagnosis [facility] [address] [place] [address] 12/25/2023 ASHA NORIEGA Encounter for gynecological examination [...] Follow Up: 1 Year, Reason: Y early Brick Machine Operator Exam Provider Name:ASHA Stefania Lai, 02/22/2025 03:30:00 PM, [address], [address], [place], [address], Progress Notes * BARRYARMINDADOB:1970 ( 53 yo F)Acc No.[id number]:12/25/2023 PROGRESS NOTES Patient:?BARRY ARMINDA Provider:?ASHA NORIEGA MD :1970???Age:53 Y???Sex:Female D ate:12/25/2023 Address:[address] [place] [address], [facility] Pcp:YAMILEX GRIJALVA M.D. Subjective: * Chief Complaints: * ???1. 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 ?She has been in state of [...] Her last mammogram was *last year at [facility] - usually in Jan/Feb. ?She does *not have a family history of colon cancer. She a has *not yet had a colonoscopy. ?The patient does *not exercise. She plans to get back to it. * ROS:?Annual Brick Machine Operator Exam ROS:?Bowel habit changes?denies.?Bladder symptoms?denies.?Vaginal discharge, unusual?denies.?Vaginal itch or odor?denies.?weight or appetite changes?denies.?Chest pains, SOB?denies.?depression?denies.?Breast:?Denies?Breast lump.?Denies?Nipple discharge.?Hematology:?Denies?Swollen glands.?Skin:?Patient denies?changing moles.?Psychiatric:?Denies?Anxiety.? * Medical History:? Objective: * Vitals:? * Examination: ???General Examination: ?GENERAL APPEARANCE:?in no acute distress, well developed, well nourished, skein bleacher present in room.?HEAD:?normocephalic, atraumatic.?NECK/THYROID:?neck supple, full range [...] * Follow Up:?1 Year (Reason: Y early Brick Machine Operator Exam) * Images: Billing Information: * Visit Code:? 45970 Preventive Care Est Pt. Age 40-64. * Procedure Codes:? 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 She has been in state of [...] Her last mammogram was *last year at [facility] - usually in Jan/Feb. She does *not have a family history of colon cancer. She a has *not yet had a colonoscopy. The patient does *not exercise. She plans to get back to it. Examination Category Sub-Category Detail Notes Category Not es General Examination GENERAL APPEARANCE: in no ac cleopatra distress, well developed, well nourished, skein bleacher present in room HEAD: normocephalic, atrau matic [...]
== END 2024-09-28 10:06 | disposition home or self-care (01) ==
PROVIDERS: PCP Internal Medicine; Visit Provider Physician Assistant Surgical
DX: E66.01 Morbid (severe) obesity due to excess calories (principal); Z68.41 Body mass index [BMI] 40.0-44.9, adult; Z98.84 Bariatric surgery status; L98.7 Excessive and redundant skin and subcutaneous tissue
CPT/HCPCS: 99214; G2211

== ENCOUNTER → 2024-09-28 09:05 | Outpatient (BNVA) | payer OTHER, SELFPAY | PROVIDERS: PCP Internal Medicine; Visit Provider Physician Assistant Surgical | DX: E66.01 Morbid (severe) obesity due to excess calories (principal); L98.7 Excessive and redundant skin and subcutaneous tissue; Z68.41 Body mass index [BMI] 40.0-44.9, adult; Z98.84 Bariatric surgery status | CPT/HCPCS: 99212 ==

== ENCOUNTER 2024-11-16 13:59 | Outpatient (AMB) | payer OTHER, SELFPAY ==
--- NOTE | 2024-11-16 14:22 | A.OFFVIS_ITS ---
Intake Visit Reasons: kidney stone Intake Note: New patient presents today for initial visit for kidney stones Urology Medication:None Blood Thinner:None Antibiotic Allergies:None Allergies amoxicillin Allergy (Severe, Verified 11/16/24 15:04) hives penicillin V Allergy (Severe, Verified 11/16/24 15:04) hives Sulfa (Sulfonamide Antibiotics) Allergy (Severe, Verified 11/16/24 15:04) hives erythromycin base Allergy (Verified 11/16/24 15:04) Hives Penicillins Allergy (Verified 11/16/24 15:04) Hives sulfamethoxazole (From Bactrim) Allergy (Verified 11/16/24 15:04) Hives trimethoprim (From Bactrim) Allergy (Verified 11/16/24 15:04) Hives Medication List - Last Reconciled 11/16/24 by CHAPO Luque-MESFIN calcium citrate-vitamin D3 500-200 mg-unit 1 tab PO DAILY clotrimazole 1% 1 appl topical BID docusate sodium 100 mg PO DAILY ibuprofen 400 mg PO Q6H PRN inulin (Fiber Gummies) 2 grams PO BID morphine 15 mg PO Q6H PRN cnmzqsnivltw-gkk-yhro-FA-vit K 45 mg iron- 800 mcg-120 mcg (Bariatric Multivitamins) 1 cap PO DAILY ondansetron 4 mg PO Q6H PRN tirzepatide (weight loss) (Zepbound) 2.5 mg (0.5 mL) subcut QWEEK HPI Comments Details: Arminda is a pleasant 54-year-old female patient of Dr. Segovia. She has a past medical history of hepatomegaly, arthritis, diabetes, GERD, adjustment disorder, vitamin B12 deficiency, vitamin-D deficiency, degenerative joint disease, and obesity. She presents to the office today as a new patient for nephrolithiasis. In discussion with the patient today she reports having seeked emergency room care services at which time she was noted to have nephrolithiasis and recommendations were made for urology referral for further assessment evaluation. Recent CT results 10/03 were reviewed mild right hydronephrosis and hydroureter with a 4 mm obstructing stone within the right mid ureter. No additional ureteral stones were present. She reports pain has since subsided she denies any previous history of nephrolithiasis and or surgical intervention for nephrolithiasis. She denies any bothersome urinary issues. She denies denies urinary urgency, urinary frequency, incontinence, nocturia, hematuria, dysuria, foul smelling urine, changes to urinary stream, flank pain, fever, and or chills. She is happy with her current voiding parameters. We did discussed at length nephrolithiasis and further intervention. We discussed the importance of adequate hydration relation to nephrolithiasis. We also discussed further workup to include [facility]ol[facility] and labs. In office urinalysis results reviewed with the patient today. All questions were answered. She otherwise offers no other issues or concerns at this time. [facility] Medical History Steatosis, liver Hepatomegaly Arthritis Diabetes GERD (gastroesophageal reflux disease) COVID-19 vaccine series completed Enlarged tongue Non-insulin dependent diabetes mellitus Adjustment disorder, unspecified Vitamin B12 deficiency Vitamin D deficiency DJD (degenerative joint disease) Morbid obesity Surgical History History of colonoscopy (~11/03/23) History of sleeve gastrectomy History of dilatation and curettage Hx of bilateral breast reduction surgery Hx of cholecystectomy Family History Mother Diabetes Father Hyperlipidemia Son Colitis Daughter No problems noted. 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 other at home: Yes (2 children 21 yr old and 16 yr old) Do you presently have visiting nurse or other home services: No Alcohol intake: current Alcohol intake frequency: holidays/special occasions only Comment: Aware of trip hazard Patient Tobacco Use Status: Never used Tobacco service: No Current occupational status: employed Cognitive needs: No Hearing needs: No Vision needs: Yes (Rx glasses, contacts) Review of Systems Const All systems reviewed & are unremarkable except as noted in HPI and below Physical Exam Const General: cooperative, healthy appearing, comfortable, no acute distress, well developed, alert and awake Orientation/consciousness: patient oriented x3 Limitations: no limitations HEENT Head: Yes normal to inspection, Yes normocephalic and Yes atraumatic Ears: hearing grossly normal bilaterally Eyes General: appearance normal, both eyes and all related structures Neck Neck: Yes normal visual inspection and Yes trachea midline Chest Chest palpation & inspection: normal inspection of the chest Resp Effort & Inspection: normal respiratory effort and able to speak in complete sentences Cardio Rate: regular rate GI Inspection: Yes normal to inspection General: Yes no CVA tenderness Back/Spine/Pelvis Back: no CVA tenderness Skin General skin exam: no rashes or lesions noted Neuro General: patient oriented x3 Extrem General: Yes normal to inspection Psych Appearance: grossly normal and well kempt Mental Status: mental status grossly normal Speech and movement: Normal speech and movement present and Clear speech present Affect: normal affect Attitude: cooperative Thought process: Normal thought process present Thought content: Normal thought content present Insight: Fair insight present (Psych) Judgement: Fair judgement present (Psych) Results Reviewed Results Reviewed: Date of Service: 09/20/24 Procedure(s): CT abdomen pelvis wo IV con Findings: The lung bases are clear. Status post cholecystectomy. Mild right hydronephrosis and hydroureter with a 4 mm obstructing stone within the right mid ureter. No additional ureteral stone is present. Remainder of the solid organs are within normal limits. Changes related to bariatric gastric surgery. No bowel obstruction, pneumoperitoneum, or pneumatosis. Normal appendix is within the right lower quadrant. Pelvic contents unremarkable. IUD is present within the endometrium. The bones are intact. IMPRESSION: Mild right hydronephrosis and hydroureter with a 4 mm obstructing stone within the right mid ureter. Assessment & Plan Assessment & Plan (1) Nephrolithiasis: Code(s): N20.0 - Calculus of kidney Category: Medical (2) Hydronephrosis concurrent with and due to calculi of kidney and ureter: Code(s): N13.2 - Hydronephrosis with renal and ureteral calculous obstruction Category: Medical Plan In office urinalysis results with the patient today; as noted above. Recent CT results with the patient today; as noted above. We discussed at length potential causes of nephrolithiasis as well as further interventions and risks and benefits of these interventions. She currently denies any bothersome urinary issues or concerns. She reports be happy with current voiding parameters. We discussed at length the importance of adequate hydration relation to nephrolithiasis as well as overall health and well-being. We discussed adding 1 oz of lemon juice to water daily. Will obtain renal ultrasound to assure passage of stone and resolution of hydronephrosis. Follow-up in 1-3 months with imaging to be completed prior; or sooner with any issues, concerns, and or questions. Orders: Orders US renal BI Today N20.0 - Calculus of kidney Patient Instructions: The patient had an opportunity to ask questions regarding the treatment plan. All questions were answered. Physical exam, labs, and imaging were discussed and reviewed in detail. As well as risks, benefits, and discussion of treatment choices. No major barriers to understanding were identified. The patient expressed understanding and agreement with the above treatment plan. The patient was made aware they should contact our office by phone for worsening of their current condition, the appearance of new symptoms, or with any questions or concerns. Compliance is encouraged with any medications and follow up testing that is ordered. It is a privilege to be allowed the opportunity to participate in? your urological care.? Again, if you have any questions or concerns If you have any questions or concerns please do not hesitate to contact me. The office is [phone]. This note is constructed using voice recognition software. While every effort has been made to ensure accuracy cracker and cookie machine operator errors may have been included. Yours sincerely, DARLENE Luque Coding Level of Care Code New Pt Level 3 (59679) Diagnoses Nephrolithiasis N20.0 Hydronephrosis concurrent with and due to calculi of kidney and ureter N13.2
--- OUTSIDE RECORDS SUMMARY | 2024-11-16 14:50 | XMS_ITS | Patient Health Record ---
Author Organization [employer] [facility] Address [address] [place] [address] Care Team Providers Care Compress Engineer Name Role Phone YAMILEX GRIJALVA M.D. Primary Care Provider ASHA Michael Unavailable [phone] Allergies Allergen (clinical drug ingredient) Drug/Non Drug [...] Problem Type II diabetes mellitus without complication (535822768) Type 2 diabetes mellitus without complications (E11.9) Active confirmed Problem Irregular menstruation (64257431) Irregular menstruation, unspecified (N92.6) Active confirmed Problem Abnormal uterine bleeding (32972099772574) Abnormal uterine and vaginal bleeding, unspecified (N93.9) Active confirmed Problem Body mass index 40+ - severely obese (796021772) Body mass index (BMI) 45.0-49.9, adult (Z68.42) Active confirmed Problem Intrauterine contraceptive device in situ (finding) (009385702) Presence of (intrauterine) contraceptive device (Z97.5) Active confirmed Problem Body mass index 40+ - morbidly obese (644740713) Body mass index (BMI) 50.0-59.9, adult (Z68.43) Active confirmed Problem COVID-19 (133623148) COVID-19 (U07.1) Active confirmed Vital Signs Temperature 97.8 degrees Fahrenheit 02/16/2024 Blood pressure diastolic 82 mm Hg 02/16/2024 Height 63.5 in 02/16/2024 Blood pressure systolic 110 mm Hg 02/16/2024 Weight 224 lbs 02/16/2024 BMI 39.05 kg/m2 02/16/2024 Encounters Encounter Location Date Provider Diagnosis [address] [address] 02/16/2024 ASHA NORIEGA Encounter for gynecological examination [...] Provider Name:ASHA Lai, 02/22/2025 03:30:00 PM, [address], [address], [place], [address], Insurance Providers Payer Name Payer Address Payer Phone Subscriber Number Group Number Insured Name Patient Relationship to Insured Coverage Start Date Coverage End Date [facility] [address] [address] [place] [id number] YULIA BARRY Self - patient is the [...]
--- OUTSIDE RECORDS SUMMARY | 2024-11-16 14:50 | XMS_ITS | Patient Health Record ---
Author Organization [facility] Address [address] [place] [address] Care Team Providers Care Skip Miner Blasting Name Role Phone Elijah Bedolla MD Primary Care Provider Azar Stubbs Unavailable [phone] Allergies Allergen (clinical drug ingredient) Drug/Non Drug Allergy documented on EMR Reaction Allergy Type Onset Date Status erythromycin Erythromycin Unknown Drug Allergy A ctive sulfamethoxazole / trimethoprim Bactrim Unknown Drug Allergy Active Reason For Referral No [...] Status Risk Notes Problem Colon cancer screening (888523151) Colon cancer screening (Z12.11) Active confirmed Problem Pre-procedure evaluation check (759203971) Encounter for other preprocedural examination (Z01.818) Active confirmed Problem Diverticulosis o f large intestine without perforation or abscess without bleeding (K57.30) Active confirmed Plan Of Treatment Future Test Test Name Order Date COLONOSCOPY 07/29/2023 Insurance Providers Payer Name Payer Address Payer Phone Subscriber Number Group Number Insured Name Patient Relationship to Insured Coverage Start Date Coverage End Date [facility] [address] [address] [place], [place] [phone] [id number] YULIA BARRY Self - patient is the insured Medical (General) History Medical History History ICD Code Denies OR,DM,CVA,Lung disease,renal dise ase Surgical History Surgery Date(Month/Year) Cholecystectomy [place] REDUCTION [place] [facility] [place]
== END 2024-11-16 15:19 | disposition home or self-care (01) ==
LOC: HO.HUSH 13:59
PROVIDERS: PCP Internal Medicine; Visit Provider Nurse Practitioner Family
DX: N20.0 Calculus of kidney (principal); N13.2 Hydronephrosis with renal and ureteral calculous obstruction; Z13.9 Encounter for screening, unspecified
CPT/HCPCS: 99203

== ENCOUNTER → 2024-11-16 13:59 | Outpatient (BNVA) | payer OTHER, SELFPAY | PROVIDERS: PCP Internal Medicine; Visit Provider Nurse Practitioner Family | DX: N20.0 Calculus of kidney (principal) | CPT/HCPCS: 81003; 99202 ==

== ENCOUNTER 2024-12-29 09:20 | Outpatient (AMB) | payer OTHER, SELFPAY ==
--- NOTE | 2024-12-29 09:33 | MHC.OFFVISWM ---
VS Expanded 12/29/24 09:36 BP 115/74 Blood Pressure Location Rt brachial Blood Pressure Position Sitting Pulse 91 Pulse Source Pulse Oximeter Temp 96.2 F L Temperature Source Temporal Artery Scan Pulse Oximetry 98 Oxygen Delivery Method Room Air Height 5 ft 3 in Weight 229 lb 6.4 oz BMI 40.6 Body Fat % 50.1 Body Fat Mass 114.8 Fat Free Mass 114.4 Visceral Fat Rating 15.0 Body Water % 35.6 Body Water Mass 81.6 Muscle Mass/Score 108.6 Basal Metabolic Rate/Score 1,640 Intake Visit Reasons: OV PO LSG 12/07/20 *GLP-1* Allergies amoxicillin Allergy (Severe, Verified 12/29/24 09:32) hives penicillin V Allergy (Severe, Verified 12/29/24 09:32) hives Sulfa (Sulfonamide Antibiotics) Allergy (Severe, Verified 12/29/24 09:32) hives erythromycin base Allergy (Verified 12/29/24 09:32) Hives Penicillins Allergy (Verified 12/29/24 09:32) Hives sulfamethoxazole (From Bactrim) Allergy (Verified 12/29/24 09:32) Hives trimethoprim (From Bactrim) Allergy (Verified 12/29/24 09:32) Hives Medication List - Last Reconciled 12/29/24 by YOLANDA Kyle calcium citrate-vitamin D3 500-200 mg-unit 1 tab PO DAILY clotrimazole 1% 1 appl topical BID docusate sodium 100 mg PO DAILY ibuprofen 400 mg PO Q6H PRN inulin (Fiber Gummies) 2 grams PO BID morphine 15 mg PO Q6H PRN bbvzilruuphr-klg-flwf-FA-vit K 45 mg iron- 800 mcg-120 mcg (Bariatric Multivitamins) 1 cap PO DAILY ondansetron 4 mg PO Q6H PRN tirzepatide (weight loss) (Zepbound) 5 mg (0.5 mL) subcut QWEEK HPI Comments Details: This?is a?53?yo female who is s/p LSG 12/07/2020. Weight loss of 2.6lb since last OV 3mo ago.? No complaints of emesis, abdominal pain or reflux, or constipation. Rare nausea on the new med. I feel great on the medication. Trying to eat protein, sometimes has difficulty finishing. Present meal plan includes: 2 premier shakes, 1 Fitcrunch bar, 1 meal of 4 forks protein, 4 forks salad/veg Exercise routine includes: walking or Peloton previously, but hasn't had time- hasn't exercised since her mom had a stroke in September 2022 Pt continues to have difficulty with excess skin which is heavy and affects activities of daily living. Has to keep clean and dry to prevent painful rashes and open areas in skin folds and uses clotrimazole which helps somewhat, and wear special clothing (compressive girdle) to avoid discomfort. If she sweats and sweat collects in skin fold, she notices an unpleasant odor. [facility] Medical History Steatosis, liver Hepatomegaly Arthritis Diabetes GERD (gastroesophageal reflux disease) COVID-19 vaccine series completed Enlarged tongue Non-insulin dependent diabetes mellitus Adjustment disorder, unspecified Vitamin B12 deficiency Vitamin D deficiency DJD (degenerative joint disease) Morbid obesity Surgical History History of colonoscopy (~11/03/23) History of sleeve gastrectomy History of dilatation and curettage Hx of bilateral breast reduction surgery Hx of cholecystectomy Family History Mother Diabetes Father Hyperlipidemia Son Colitis Daughter No problems noted. 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 other at home: Yes (2 children 21 yr old and 16 yr old) Do you presently have visiting nurse or other home services: No Alcohol intake: current Alcohol intake frequency: holidays/special occasions only Comment: Aware of trip hazard Patient Tobacco Use Status: Never used Tobacco service: No Current occupational status: employed Cognitive needs: No Hearing needs: No Vision needs: Yes (Rx glasses, contacts) Physical Exam Vital Signs: Last Vital Signs Temp 96.2 F L 12/29/24 09:36 Pulse 91 12/29/24 09:36 BP 115/74 12/29/24 09:36 Pulse Ox 98 12/29/24 09:36 Oxygen Delivery Method Room Air 12/29/24 09:36 BMI result Body Mass Index 40.6 Assessment & Plan Assessment & Plan (1) Morbid obesity: Code(s): E66.01 - Morbid (severe) obesity due to excess calories Category: Medical (2) S/P laparoscopic sleeve gastrectomy: Code(s): Z98.84 - Bariatric surgery status Category: Medical (3) Excess skin: Code(s): L98.7 - Excessive and redundant skin and subcutaneous tissue Category: Medical Plan Pt doing well on Zepbound. Will continue this month on 5mg and then decide on dosing for next refill. Encouraged incorporating exercise to help with weight loss. RTC 6mo, pt will continue to text me between visits.
[2024-12-29 09:36] VITALS: BP 115/74; PULSE 91; TEMP 35.7; O2SAT 98; BMI 40.6
--- OUTSIDE RECORDS SUMMARY | 2024-12-29 10:01 | XMS_ITS | Patient Health Record ---
Author Organization [facility] Address [address] [place] [address] Care Team Providers Care Multi Disciplined Language Analyst Name Role Phone Graeme (RETIRED) Elijah ASHFORD Primary Care Provide r Unavailable Azar Simmons Unavailable [phone] Allergies Allergen (clinical drug ingredient) Drug/Non Drug [...] Status Risk Notes Problem Colon cancer screening (855853255) Colon cancer screening (Z12.11) Active confirmed Problem Pre-procedure evaluation check (136745044) Encounter for other preprocedural examination (Z01.818) Active confirmed Problem Diverticulosis o f large intestine without perforation or abscess without bleeding (K57.30) Active confirmed Plan Of Treatment Future Test Test Name Order Date COLONOSCOPY 07/29/2023 Insurance Providers Payer Name Payer Address Payer Phone Subscriber Number Group Number Insured Name Patient Relationship to Insured Coverage Start Date Coverage End Date [facility] [address] [address] [place], [place] [id number] YULIA BARRY Self - patient is the insured Medical (General) History Medical History History ICD Code Denies SD,DM,CVA,Lung disease,renal dise ase Surgical History Surgery Date(Month/Year) Cholecystectomy BREAST REDUCTION Sleeve gast[place] at [facility] [place] -lost 85#
--- OUTSIDE RECORDS SUMMARY | 2024-12-29 10:01 | XMS_ITS | Patient Health Record ---
Author Organization [employer] [facility] Address [address] [place] [address] Care Team Providers Care Scraper Burrer Name Role Phone YAMILEX GRIJALVA M.D. Primary Care Provider ASHA Michael Unavailable [phone] Allergies Allergen (clinical drug ingredient) Drug/Non Drug [...] Problem Type II diabetes mellitus without complication (314938405) Type 2 diabetes mellitus without complications (E11.9) Active confirmed Problem Irregular menstruation (77066887) Irregular menstruation, unspecified (N92.6) Active confirmed Problem Abnormal uterine bleeding (37258341493131) Abnormal uterine and vaginal bleeding, unspecified (N93.9) Active confirmed Problem Body mass index 40+ - severely obese (131857016) Body mass index (BMI) 45.0-49.9, adult (Z68.42) Active confirmed Problem Intrauterine contraceptive device in situ (finding) (004610439) Presence of (intrauterine) contraceptive device (Z97.5) Active confirmed Problem Body mass index 40+ - morbidly obese (962767922) Body mass index (BMI) 50.0-59.9, adult (Z68.43) Active confirmed Problem COVID-19 (764296164) COVID-19 (U07.1) Active confirmed Vital Signs Temperature 97.8 degrees Fahrenheit 02/16/2024 Blood pressure diastolic 82 mm Hg 02/16/2024 Height 63.5 in 02/16/2024 Blood pressure systolic 110 mm Hg 02/16/2024 Weight 224 lbs 02/16/2024 BMI 39.05 kg/m2 02/16/2024 Encounters Encounter Location Date Provider Diagnosis [address] [address] 02/16/2024 ASHA NORIEGA Encounter for gynecological examination [...] Provider Name:ASHA Lai, 02/22/2025 03:30:00 PM, [address], [address], [place], [address], Insurance Providers Payer Name Payer Address Payer Phone Subscriber Number Group Number Insured Name Patient Relationship to Insured Coverage Start Date Coverage End Date [facility] [address] [address] [place] [id number] YULIA BARRY Self - patient is the [...]
== END 2024-12-29 10:00 | disposition home or self-care (01) ==
LOC: HO.HBS 09:20
PROVIDERS: PCP Internal Medicine; Visit Provider Physician Assistant Surgical
DX: E66.01 Morbid (severe) obesity due to excess calories (principal); Z68.41 Body mass index [BMI] 40.0-44.9, adult; L98.7 Excessive and redundant skin and subcutaneous tissue; Z90.3 Acquired absence of stomach [part of]; Z98.84 Bariatric surgery status
CPT/HCPCS: 99213

== ENCOUNTER → 2024-12-29 09:20 | Outpatient (BNVA) | payer OTHER, SELFPAY | PROVIDERS: PCP Internal Medicine; Visit Provider Physician Assistant Surgical | DX: Z98.84 Bariatric surgery status (principal); E66.01 Morbid (severe) obesity due to excess calories; L98.7 Excessive and redundant skin and subcutaneous tissue | CPT/HCPCS: 99212 ==

== ENCOUNTER 2025-02-16 15:47 | Outpatient (REF) | payer OTHER, SELFPAY ==
--- NOTE | ~2025-02-16 | US_ITS ---
EXAMINATION: US RETROPERITONEAL LIMITED (RENAL ONLY) CLINICAL INFORMATION: Calculus of kidney.. COMPARISON: No prior. Correlation made with CT abdomen and pelvis 09/20/2024. TECHNIQUE: Real-time imaging of the kidneys. FINDINGS: RIGHT KIDNEY: 10.0 x 5.4 x 5.4 cm (SAG x AP x TRV). The kidney is normal in size, contour, and echogenicity. Renal cortical thickness is normal. No focal parenchymal lesions. No hydronephrosis. There is a lower pole calculus measuring 2 x 2 x 5 mm. LEFT KIDNEY: 10.6 x 6.0 x 4.8 cm (SAG x AP x TRV). The kidney is normal in size, contour, and echogenicity. Renal cortical thickness is normal. No calculi or focal parenchymal lesions. No hydronephrosis. US/US renal BI IMPRESSION: 1. Right kidney demonstrates a nonobstructing lower pole calculus measuring 2 x 2 x 5 mm. No hydronephrosis. 2. Normal left kidney. Electronically signed by: Waylon Wasserman MD 02/16/2025 04:37 PM EDT
== END 2025-02-16 15:48 | disposition home or self-care (01) ==
LOC: HO.US 15:47
PROVIDERS: PCP Physician Assistant; Visit Provider Nurse Practitioner Family
DX: N20.0 Calculus of kidney (principal)
CPT/HCPCS: 76775

== ENCOUNTER → 2025-02-16 15:49 | Outpatient (BNV) | payer OTHER, SELFPAY | PROVIDERS: PCP Physician Assistant; Visit Provider Radiology Diagnostic Radiology | DX: N20.0 Calculus of kidney (principal) | CPT/HCPCS: 76775 ==

== ENCOUNTER 2025-02-23 16:05 | Outpatient (AMB) | payer OTHER, SELFPAY ==
--- OUTSIDE RECORDS SUMMARY | 2023-11-03 04:50 | XMS_ITS ---
Author Organization [facility] Address [address] [place] [address] Care Team Providers Care Vision Rehabilitation Therapist Name Role Phone Graeme (RETIRED) Elijah ASHFORD Primary Care Provide r Azar Early Unavailable [phone] REASON FOR VISIT screening Problems Problem Type SNOMED Code ICD Code Onset Dates Problem Status W/U Status Risk Notes Problem Diverticular disease of colon (530029987) Diverticulosis of large intestine without perforation or abscess without bleeding (K57.30) Active confirmed Encounters Encounter Location Date Provider Diagnosis [facility] [place] Out[place] [address] [place] [phone] 11/03/2023 Azar Simmons Encounter for scre ening [...] * YULIA BARRYDOB:1970 ( 54 yo F)Acc No.[id number]:11/03/2023 COLON WITH MAC Patient: Arnulfo HELENA YULIA Provider: Keon Simmons MD :1970 A ge:52 Y S ex:Female Date:11/03/2023 Address:[address] [place] [address] , [place] [id number] Pcp:Elijah Bedolla (RETIRED )MD Subjective: * Chief [...] 11/03/2023 Generated for Krystle lopez/Matt/Pinkyitting on: 1 07:15 PM EDT
--- OUTSIDE RECORDS SUMMARY | 2023-12-25 04:00 | XMS_ITS ---
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 SPECIALIST Physical Encounters Encounter Location Date Provider Diagnosis [facility] [address] [place] [phone] 12/25/2023 ASHA NORIEGA Encounter for gynecological examination [...] Follow Up: 1 Year, Reason: Y early Space Control Supervisor Exam Provider Name:ASHA Aguiar TOMER Lai, 03/02/2026 03:30:00 PM, [address], [address], [place], [address], Progress Notes * ARMINDA BARRYDOB:1970 ( 54 yo F)Acc No.[id number]:12/25/2023 PROGRESS NOTES Patient: ARMINDA GARCIA Provider: Stefania NORIEGA MD :1970 A ge:53 Y S ex:Female Date:12/25/2023 Address:[address] [place], [place] [phone] Pcp:JASWANT CALL Subjective: * Chief Complaints: * 1 . Annual ACCOUNT INSTALLATION SPECIALIST Physical. 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 S he has been in state [...] Her last mammogram was *last year at [facility] - usually in Jan/Feb. S he does *not have a family history of colon cancer. She a has *not yet had a colonoscopy. T he patient does *not exercise. She plans to get back to it. * ROS: A nnual Space Control Supervisor Exam ROS: Bowel habit changes d enies. [...] no acute distress, well developed, well nourished, distance learning unit leader present in room. HEAD: n ormocephalic, atraumatic. [...] * Follow Up: 1 Year (Reason: Yearly Space Control Supervisor Exam) * Images: Billing Information: * Visit Code: [id number] Preventive Care Est Pt. Age 40-64. 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 She has been in state of [...] Her last mammogram was *last year at [facility] - usually in Jan/Feb. She does *not have a family history of colon cancer. She a has *not yet had a colonoscopy. The patient does *not exercise. She plans to get back to it. Examination Category Sub-Category Detail Notes Category Not es General Examination GENERAL APPEARANCE: in no ac [place] distress, well developed, well nourished, distance learning unit leader present in room HEAD: normocephalic, atrau matic [...]
--- OUTSIDE RECORDS SUMMARY | 2025-02-22 11:30 | XMS_ITS ---
Author Organization [facility] Address [address] [address] Care Team Providers Care Industrial Pharmacist Name Role Phone JASWANT CALL Primary Care Provider ASHA Phillips Unavailable [phone] Allergies Allergen (clinical drug ingredient) Drug/Non Drug Allergy documented on EMR Reaction Allergy Type Onset Date Status amoxicillin Amoxicillin Hives Drug Allergy Act larry sulfamethoxazole / trimethoprim Bactrim Hives Drug Allergy Active erythromycin Erythromycin hives Drug Allergy A ctive penicillin V Penicillin V Potassium Hives Drug Allergy Active Sulfur Hives Drug Allergy Active REASON FOR VISIT 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 2 to 4 times a month (2 points) How many drinks did you have on a typical day when you were drinking in the past year? 1 or 2 drinks (0 point) How often did you have six o r more drinks on one occasion in the past year? Never (0 point) Points 2 Interpretation Negative Problems Problem Type SNOMED Code ICD Code Onset Dates Problem Status W/U Status Risk Notes Problem Prediabetes (935561063) Prediabetes (R73.03) Active confirmed Problem Osteoarthritis of knee (613137272) Bilateral primary osteoarthritis of knee (M17.0) Active confirmed Vital Signs Temperature 98.0 degrees Fahrenheit 02/23/20 25 Blood pressure systolic 114 mm Hg 02/23/20 25 Blood pressure diastolic 76 mm Hg 025 Height 63.5 in 02/22/2025 Weight 222 lbs 02/22/2025 BMI 38.7 kg/m2 02/22/2025 Encounters Encounter Location Date Provider Diagnosis [facility] [address] [facility] [place] [address] 02/22/2025 ASHA NORIEGA Encounter for gynecological examination (general) (routine) without abnormal findings Z01.419 ; Encounter for screening mammogram for malignant neoplasm of breast Z12.31 and Presence of (intrauterine) contraceptive device Z97.5 Assessments Encounter Date Diagnosis (ICD Code) Assessment Notes Treatment Notes Treatment Clinical Notes Section Notes 02/22/2025 Encounter for gynecological examination (general) (routine) without [...] to keep colon screening up to date. 02/22/2025 Encounter for screening mammogram for malignant neoplasm of breast (ICD-10 - Z12.31) 02/22/2025 Presence of (intrauterine) contraceptive device (ICD-10 - Z97.5) Plan Of Treatment Treatment Notes Assessment Notes [...] Order Date MM Digital Screening Mammogram 3D 2024 Next Appt Details Follow Up: 1 Year, Reason: Y early Certified Alcohol Counselor Exam Provider Name:ASHA JEFF Ming, 03/02/2026 03:30:00 PM, [address], [address], [place], [address], Progress Notes * ARMINDA BARRYDOB:1970 ( 54 yo F)Acc No.[id number]:02/22/2025 PROGRESS NOTES Patient: ARMINDA GARCIA Provider: Stefania NORIEGA MD :1970 A ge:54 Y S ex:Female Date:02/22/2025 Address:[address] [place], [place] [id number] Pcp:JASWANT CALL Subjective: * Chief Complaints: * 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 S he has been in state of good health since her last exam. She has the following concerns: none She started Zepbound in mid-November and is down 14.5 lbs since then. S he has received the Moderna Covid-19 vaccine. R elationship status: for 13 years, since 2011. She is sexually active. Sexual partner(s): male. She does not wish to have STI testing. M enses: monthly until 07/2024, then again in 01/2025, lasting about 6 days - very light flow. C ontraception: vasectomy, Mirena for control of heavy menstrual bleeding inserted 10/2020. S he does report vaginal dryness - uses lubricant with good effect. She had hot flashes during the summer, but now does not have hot flashes/night sweats. T he patient has never had an abnormal pap smear. Her most recent pap smear was 12/23/22 - NIL, neg HR HPV. Due for cotesting in 2027. S he has not been diagnosed with breast cancer. She does not have a family history of breast cancer. Her last mammogram was 03/18/24 at [facility]. There are scattered areas of fibroglandular density (viewed on her patient portal) S he does not have a family history of colon cancer. She a has had a colonoscopy in October 2023, next due in 10 yrs. T he patient does exercise. She walks for 40 minutes daily. * ROS: A nnual Certified Alcohol Counselor Exam ROS: Bowel habit changes d enies. [...] sychiatric: Denies A nxiety. * Medical History: * Certified Alcohol Counselor History: G ravida/ Para . S exual activity c urrently sexually active. L ast Pap Smear: NIL, NEG HPV, 07/08/17 NIL, NEG HRHPV. M ammogram: 1 05/2023, 03/07/23 Breast Tissue is Almost Entirely Fatty, 01/2022, 12/2020 @ [facility], 12/2019. A bnormal Pap Smear: n o history of abnormal pap smears. L MP and menses , spotting, prior to that 07/2024, 02/06/24. H istory of STD's: n one. B irth Control: v asectomy, Mirena - inserted 10/2020. M enarche 1 4. C olonoscopy . * OB History: T otal pregnancies 5 . T otal living children 2 . N VD 2 . A bortion(s) 3 . P regnancy # 1: e lective terminations of (ETOP), T1, no complications. P regnancy # 2: n ormal spontaneous vaginal delivery (), 05/14/1999, Ja 6lb 7oz, no complications. P regnancy # 3 n ormal spontaneous vaginal delivery (), 10/28/04, Salma, 6lb 9oz, no complications. P regnancy # 4: e lective terminations of (ETOP), T1, no complications. P regnancy # 5: e lective terminations of (ETOP), T1, no complications. * Surgical History: C holecystectomy 06/1999Breast Reduction 2006Gastric Sleeve 11/2020 * Hospitalization/Major Diagno stic Procedure: 2 Vaginal Deliveries * Family History: M other: alive 71 yrs, Diabetes; CVA in 09/2022 - in rehab in 12/2022 - 10/2023. Getting eldercare services. F ather: alive 73 yrs, CVA in early 2021 - some residual. M aternal Grand Mother: Heart Disease. Brother, Xavi, 01/22/88 - well Denies family history of breast, colon, uterine or ovarian cancers. * Social History: T obacco Use: T obacco Use/Smoking A re you a n onsmoker S exual History: S exual History H ad sex in the past 12 months (vaginal, oral, or anal)? Y es w ith M en only U se protection? N o Details of Sexual History A re you sexually active? N o D rugs/Alcohol: D rugs H ave you used drugs other than those for medical reasons in the past 12 months? N o M iscellaneous: Pradeep mcguireen: yes, 2. Domestic violence: no. Exercise: yes, walking. Home smoke detector use: yes, smoke detectors, carbon monoxide detector. Housing: owns a home. Living with: spouse, children. Marital status: , Ja. Natural support system: yes. 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 Pets: none. Sexual abuse: no. Sexually active: yes, monogamous relationship. Travel outside of the [place]: no. Verbal abuse: no. D rug/Alcohol: A FABIOLA-C (Standard) D id you have a drink containing alcohol in the past year? Y es H ow often did you have a drink containing alcohol in the past year? 2 to 4 times a month (2 points) H ow many drinks did you have on a typical day when you were drinking in the past year? 1 or 2 drinks (0 point) H ow often did you have six or more drinks on one occasion in the past year? N ever (0 point) P oints 2 I nterpretation N egative * Medications: T akingZepbound 7.5 MG/0.5ML Solution Auto-injector 0.5 mL Subcutaneous Docusate Sodium 50 MG Capsule 1 capsule as needed Orally Once a day Multi For Her - Tablet as directed Orally Mirena (52 MG) 20 MCG/24HR Intrauterine Device as directed Intrauterine , Notes to Pharmacist: Inserted 10/16/20Medication List reviewed and reconciled with the patientTaking Zepbound 7.5 MG/0.5ML Solution Auto-injector 0.5 mL Subcutaneous Taking Docusate Sodium 50 MG Capsule 1 capsule as needed Orally Once a day Taking Multi For Her - Tablet as directed Orally Taking Mirena (52 MG) 20 MCG/24HR Intrauterine Device as directed Intrauterine , Notes to Pharmacist: Inserted 10/16/20Medication List reviewed and reconciled with the patient * Allergies: P enicillin V Potassium: Hives - AllergyAmoxicillin: Hives - AllergyBactrim: Hives - AllergySulfur: Hives - AllergyErythromycin: hives - Allergyno[Allergies Verified] Objective: * Vitals: H t: 63.5 in, Wt:222lbs, BMI:38.7Index, BP:114/76mm Hg, Temp:98.0F. * Examination: G eneral Examination: GENERAL APPEARANCE: i n no acute distress, well developed, well nourished, wheel press operator present in room. HEAD: n ormocephalic, atraumatic. NECK/THYROID: n demi supple, full range of motion, thyroid normal. LYMPH NODES: n o axillary or supraclavicular adenopathy.? SKIN: normal, good turgor, no rashes, no suspicious lesions. BREASTS: normal, no dimpling, no discharge, no drainage, no masses palpable bilaterally, nontender, bilateral inverted t-incision and periareolar scars. ABDOMEN: soft, non-tender, non distended without masses or hepatosplenomegay. RECTAL: normal tone, no masses palpable. BACK: no costovertebral angle tenderness. FEMALE GENITOURINARY: V ulva without lesions or masses, vagina pink without abnormal discharge, lesions or masses, cervix appears normal and is not tender to palpation, IUD threads seen, uterus is normal size, mobile, nontender and [...] neoplasm of breast - Z12.31 3 . P resence of (intrauterine) contraceptive device - Z97.5? Plan: * Treatment: 2. E ncounter for screening mammogram for malignant neoplasm of breast I maging: MM Digital Screening Mammogram 3D * Procedure Codes: 9 9459 PELVIC EXAMINATION * Preventive Medicine: ~~~~~~~~~~~~~ STRENGTH TRAINING ~~~~~~~~~~~~~ Anyone, at any [...] muscle mass and strength. 'Sarco' is the [place] word referring to flesh, and 'penia' means [...] than you ever have! . * Follow Up: 1 Year (Reason: Yearly Certified Alcohol Counselor Exam) * Images: Billing Information: * Visit Code: 47613 Preventive Care Est Pt. Age 40-64. * Procedure Codes: 23317 PELVIC EXAMINATION. 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 She has been in state of good health since her last exam. She has the following concerns: none She started Zepbound in mid-November and is down 14.5 lbs since then. She has received the Moderna Covid-19 vaccine. Relationship status: for 13 years, since 2011. She is sexually active. Sexual partner(s): male. She does not wish to have STI testing. Menses: monthly until 07/2024, then again in 01/2025, lasting about 6 days - very light flow. Contraception: vasectomy, Mirena for control of heavy menstrual bleeding inserted 10/2020. She does report vaginal dryness - uses lubricant with good effect. She had hot flashes during the summer, but now does not have hot flashes/night sweats. The patient has never had an abnormal pap smear. Her most recent pap smear was 12/23/22 - NIL, neg HR HPV. Due for cotesting in 2027. She has not been diagnosed with breast cancer. She does not have a family history of breast cancer. Her last mammogram was 03/18/24 at [facility]. There are scattered areas of fibroglandular density (viewed on her patient portal) She does not have a family history of colon cancer. She a has had a colonoscopy in October 2023, next due in 10 yrs. The patient does exercise. She walks for 40 minutes daily. Examination Category Sub-Category Detail Notes Category Not es General Examination GENERAL APPEARANCE: in no ac cleopatra distress, well developed, well nourished, wheel press operator present in room HEAD: normocephalic, atrau matic NECK/THYROID: neck supple, full ra nge of motion, thyroid normal ABDOMEN: soft, non-tender, no n distended without masses or hepatosplenomegay NEUROLOGIC: alert and oriented, gait normal SKIN: normal, good turgor, no rashes, no suspicious lesions BACK: no costovertebral an gle tenderness BREASTS: normal, no dimpling, no discharge, no drainage, no masses palpable bilaterally, nontender, bilateral inverted t-incision and periareolar scars LYMPH NODES: no axillary or supra clavicular adenopathy RECTAL: normal tone, no mass es palpable PSYCH: alert, oriented, cog nitive function intact, cooperative with exam, good eye contact, mood/affect full range, speech clear FEMALE GENITOURINARY: Vulva without lesi ons or masses, vagina pink without abnormal discharge, lesions or masses, cervix appears normal and is not tender to palpation, IUD threads seen, uterus is normal size, mobile, nontender and anteverted, ovaries are not palpable
--- NOTE | 2025-02-23 16:07 | MHC.OFFVIS ---
Intake Visit Reasons: 3m/US Intake Note: patient presents today for: 3mo/US urology medications: none blood thinners: none US done: 02/16/25 Master Ocean Required: No Accompanied by: Self / Same As Patient Allergies amoxicillin Allergy (Severe, Verified 12/29/24 09:32) hives penicillin V Allergy (Severe, Verified 12/29/24 09:32) hives Sulfa (Sulfonamide Antibiotics) Allergy (Severe, Verified 12/29/24 09:32) hives erythromycin base Allergy (Verified 12/29/24 09:32) Hives Penicillins Allergy (Verified 12/29/24 09:32) Hives sulfamethoxazole (From Bactrim) Allergy (Verified 12/29/24 09:32) Hives trimethoprim (From Bactrim) Allergy (Verified 12/29/24 09:32) Hives Medication List - Last Reconciled 02/23/25 by CHAPO Luque-MESFIN calcium citrate-vitamin D3 500-200 mg-unit 1 tab PO DAILY clotrimazole 1% 1 appl topical BID docusate sodium 100 mg PO DAILY ibuprofen 400 mg PO Q6H PRN inulin (Fiber Gummies) 2 grams PO BID ajtcoqplgfmg-jiu-dovi-FA-vit K 45 mg iron- 800 mcg-120 mcg (Bariatric Multivitamins) 1 cap PO DAILY tirzepatide (weight loss) (Zepbound) 7.5 mg (0.5 mL) subcut QWEEK HPI Comments Details: Arminda is a pleasant 54-year-old female patient of Dr. Segovia. She has a past medical history of hepatomegaly, arthritis, diabetes, GERD, adjustment disorder, vitamin B12 deficiency, vitamin-D deficiency, degenerative joint disease, and obesity. She is being followed up on today via video telehealth for a follow up. Of note, patient was seen approximately 3 months ago as a new patient for nephrolithiasis at which time a renal ultrasound was ordered and performed. These results were reviewed and communicated with the patient today. 03/05 bilateral kidneys are normal in size, contour, and echogenicity. There is no hydronephrosis noted bilaterally. There is a lower pole right calculus measuring 2 x 2 x 5 mm. We discussed resolution of previous hydronephrosis with 4 mm obstructing stone. She denies having had any bothersome urinary issues or concerns since her last office visit here. She continues to attempt to drink plenty of water daily. She discusses having limited soda from her diet. She denies denies urinary urgency, urinary frequency, incontinence, nocturia, hematuria, dysuria, foul smelling urine, changes to urinary stream, flank pain, fever, and or chills. She is happy with her current voiding parameters. We did discussed at length nephrolithiasis and further interventions. We discussed the importance of adequate hydration relation to nephrolithiasis. We also discussed further workup to include Litholink and labs. All questions were answered. She otherwise offers no other issues or concerns at this time. [facility] Medical History Steatosis, liver Hepatomegaly Arthritis Diabetes GERD (gastroesophageal reflux disease) COVID-19 vaccine series completed Enlarged tongue Non-insulin dependent diabetes mellitus Adjustment disorder, unspecified Vitamin B12 deficiency Vitamin D deficiency DJD (degenerative joint disease) Morbid obesity Surgical History History of colonoscopy (~11/03/23) History of sleeve gastrectomy History of dilatation and curettage Hx of bilateral breast reduction surgery Hx of cholecystectomy Family History Mother Diabetes Father Hyperlipidemia Son Colitis Daughter No problems noted. Social History Housing: House Are you a primary child care provider to a significant other at home: Yes (2 children 21 yr old and 16 yr old) Do you presently have visiting nurse or other home services: No Alcohol intake: current Alcohol intake frequency: holidays/special occasions only Comment: Aware of trip hazard Patient Tobacco Use Status: Never used Tobacco service: No Current occupational status: employed Cognitive needs: No Hearing needs: No Vision needs: Yes (Rx glasses, contacts) Review of Systems Const All systems reviewed & are unremarkable except as noted in HPI and below Physical Exam Const General: cooperative, healthy appearing, comfortable, no acute distress, well developed, alert and awake Orientation/consciousness: patient oriented x3 Resp Effort & Inspection: normal respiratory effort and able to speak in complete sentences Neuro General: patient oriented x3 Psych Appearance: well kempt Speech and movement: Clear speech present Attitude: cooperative Thought content: Normal thought content present Insight: Fair insight present (Psych) Judgement: Fair judgement present (Psych) Telehealth Telehealth Telehealth Platform: Fishin' Glue Location of provider rendering services: practice address Location of patient: address on file Patient Identification confirmed using: Name, : Yes Telehealth method: video Patient verbally consented to treatment: Yes Patient verbally consented to billing insurance company: Yes Patient informed of any privacy concerns related to visit: Yes Minutes spent on Phone/Video with Pt.: 15 Results Reviewed Results Reviewed: Date of Service: 02/16/25 Procedure(s): US renal BI FINDINGS: RIGHT KIDNEY: 10.0 x 5.4 x 5.4 cm (SAG x AP x TRV). The kidney is normal in size, contour, and echogenicity. Renal cortical thickness is normal. No focal parenchymal lesions. No hydronephrosis. There is a lower pole calculus measuring 2 x 2 x 5 mm. LEFT KIDNEY: 10.6 x 6.0 x 4.8 cm (SAG x AP x TRV). The kidney is normal in size, contour, and echogenicity. Renal cortical thickness is normal. No calculi or focal parenchymal lesions. No hydronephrosis. IMPRESSION: 1. Right kidney demonstrates a nonobstructing lower pole calculus measuring 2 x 2 x 5 mm. No hydronephrosis. 2. Normal left kidney. Assessment & Plan Assessment & Plan (1) Nephrolithiasis: Code(s): N20.0 - Calculus of kidney Category: Medical Plan Recent renal imaging results reviewed with the patient today; as noted above. She currently denies any bothersome urinary issues or concerns. She reports be happy with current voiding parameters. We discussed the importance of adequate hydration relation to nephrolithiasis as well as overall health and well-being. We discussed adding 1 on survey lemon juice to water daily. All questions were answered. Will continue with surveillance monitoring. Will obtain renal ultrasound in 6 months Follow-up in 6 months with imaging; or sooner with any issues, concerns, and or questions. Orders: Orders US renal BI 6 Months N20.0 - Calculus of kidney Patient Instructions: The patient had an opportunity to ask questions regarding the treatment plan. All questions were answered. Physical exam, labs, and imaging were discussed and reviewed in detail. As well as risks, benefits, and discussion of treatment choices. No major barriers to understanding were identified. The patient expressed understanding and agreement with the above treatment plan. The patient was made aware they should contact our office by phone for worsening of their current condition, the appearance of new symptoms, or with any questions or concerns. Compliance is encouraged with any medications and follow up testing that is ordered. It is a privilege to be allowed the opportunity to participate in? your urological care.? Again, if you have any questions or concerns If you have any questions or concerns please do not hesitate to contact me. The office is [phone]. This note is constructed using voice recognition software. While every effort has been made to ensure accuracy natural resource economist errors may have been included. Yours sincerely, DARLENE Luque Coding Level of Care Code Tele Est Pt Level 3 (40865) Diagnoses Nephrolithiasis N20.0
--- OUTSIDE RECORDS SUMMARY | 2025-02-23 19:15 | XMS_ITS | Patient Health Record ---
Author Organization [facility] Address [address] [place] [address] Care Team Providers Care Teaching Supervisor Name Role Phone Graeme (RETIRED) Elijah ASHFORD Primary Care Provide r Azar Early Unavailable [phone] Allergies Allergen (clinical drug ingredient) Drug/Non Drug Allergy documented on EMR Reaction Allergy Type Onset Date Status erythromycin Erythromycin Unknown Drug Allergy A ctive sulfamethoxazole / trimethoprim Bactrim Unknown Drug Allergy Active Reason For Referral No Information Medications Medication SIG (Take, Route, Frequency, Duration) Notes Start Date End Date Status 1.5-30 MG-MCG TAKE 1 TABLET BY MOUTH EVERY DAY FOR 84 DAYS Oral; Duration: 84 Active Social History Tobacco Use: Social [...] Status Risk Notes Problem Colon cancer screening (417159756) Colon cancer screening (Z12.11) Active confirmed Problem Pre-procedure evaluation check (666159828) Encounter for other preprocedural examination (Z01.818) Active confirmed Problem Diverticular disease of colon (723495858) Diverticulosis of large intestine without perforation or abscess without bleeding (K57.30) Active confirmed Plan Of Treatment Future Test Test Name Order Date COLONOSCOPY 07/29/2023 Insurance Providers Payer Name Payer Address Payer Phone Subscriber Number Group Number Insured Name Patient Relationship to Insured Coverage Start Date Coverage End Date [facility] [address] [address] [place], [place] [id number] [phone] [id number] YULIA BARRY Self - patient is the insured Medical (General) History Medical History History ICD Code Denies [place],DM,CVA,Lung disease,renal dise ase Surgical History Surgery Date(Month/Year) Cholecystectomy BREAST REDUCTION Sleeve gastrectomy at [facility] -lost 85#
--- OUTSIDE RECORDS SUMMARY | 2025-02-23 19:15 | XMS_ITS | Patient Health Record ---
[facility] Organization [facility] Address [address] [place] [address] Care Team Providers Care Legislative Analyst Name Role Phone JASWANT CALL Primary Care Provider ASHA Phillips Unavailable [phone] Allergies Allergen (clinical drug ingredient) Drug/Non Drug [...] Problem Status W/U Status Risk Notes Problem Osteoarthritis of knee (534397478) Bilateral primary osteoarthritis of knee (M17.0) Active confirmed Problem Irregular menstruation (23551708) Irregular menstruation, unspecified (N92.6) Active confirmed Problem Abnormal uterine bleeding (98081401099623) Abnormal uterine and vaginal bleeding, unspecified (N93.9) Active confirmed Problem Body mass index 40+ - severely obese (183700060) Body mass index (BMI) 45.0-49.9, adult (Z68.42) Active confirmed Problem Intrauterine contraceptive device in situ (finding) (224656917) Presence of (intrauterine) contraceptive device (Z97.5) Active confirmed Problem Prediabetes (598791706) Prediabetes (R73.03) Active confirmed Problem Body mass index 40+ - morbidly obese (419339045) Body mass index (BMI) 50.0-59.9, adult (Z68.43) Active confirmed Problem COVID-19 (393973989) COVID-19 (U07.1) Active confirmed Vital Signs Temperature 98.0 degrees Fahrenheit 02/22/2025 Blood pressure diastolic 76 mm Hg 02/22/2025 Height 63.5 in 02/22/2025 Blood pressure systolic 114 mm Hg 02/22/2025 Weight 222 lbs 02/22/2025 BMI 38.7 kg/m2 02/22/2025 Encounters Encounter Location Date Provider Diagnosis [address] [address] 02/22/2025 ASHA NORIEGA Encounter for gynecological examination [...] device (ICD-10 - Z97.5) Plan Of Treatment Pending Test Test Name Order Date Sonohysterogram 11/22/2019 Test, Urine 10/16/2020 MM Digital Screening Mammogram 3D 2020 MM Digital Screening Mammogram 3D 2021 MM Digital Screening Mammogram 3D 2022 MM Digital Screening Mammogram 3D 2023 MM Digital Screening Mammogram 3D 2024 MM Digital Screening Mammogram 3D 2018 MM Digital Screening Mammogram 3D 2019 Next Appt Details Provider Name:ASHA Lai, 03/02/2026 03:30:00 PM, [address] [facility], [address], [place], [address], Insurance Providers Payer Name Payer Address Payer Phone Subscriber Number Group Number Insured Name Patient Relationship to Insured Coverage Start Date Coverage End Date [facility] [address] [address] [place] [address] [id number] YULIA BARRY Self - patient is the insured Medical (General) History Medical History History ICD Code Calculus of gallbladder without cholecys titis without obstruction K80.20 Sensorineural hearing loss, unilateral, right ear, with unrestricted hearing on the contralateral side H90.41 COVID-19 U07.1 Calculus of ureter N20.1 Prediabetes R73.03 Bilateral primary osteoarthritis of knee M17.0 Surgical History Surgery Date(Month/Year) Cholecystectomy 06/1999 Breast Reduction 2006 Gastric Sleeve 11/2020 Hospitalization History Reason Date(Month/Year) 2 Vaginal Deliveries
== END 2025-02-23 16:53 | disposition home or self-care (01) ==
LOC: HO.HUSH 16:05
PROVIDERS: PCP Physician Assistant; Visit Provider Nurse Practitioner Family
DX: N20.0 Calculus of kidney (principal)
CPT/HCPCS: 99213

== ENCOUNTER 2025-03-21 15:17 | Outpatient (AMB) | payer OTHER, SELFPAY ==
--- NOTE | 2025-03-21 15:04 | A.OFFPC_ITS ---
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 [employer]s Supervisor Required: No Accompanied by: Self / Same As Patient Allergies amoxicillin Allergy (Severe, Verified 03/21/25 15:04) hives penicillin V Allergy (Severe, Verified 03/21/25 15:04) hives Sulfa (Sulfonamide Antibiotics) Allergy (Severe, Verified 03/21/25 15:04) hives erythromycin base Allergy (Verified 03/21/25 15:04) Hives Penicillins Allergy (Verified 03/21/25 15:04) Hives sulfamethoxazole (From Bactrim) Allergy (Verified 03/21/25 15:04) Hives trimethoprim (From Bactrim) Allergy (Verified 03/21/25 15:04) Hives Tobacco use date assessed: 09/20/24 Dental Screening Dental Screen Date: 09/20/24 HPI HPI Comments History of Present Illness Details 53-year-old female with history of nonin sulin type 2 diabetes with class 3 obesity presents to the office today for routine follow-up Type 2 diabetes. Last A1c is 5.6%. On Zepbound. Compliant with diabetic diet and continues with weight loss efforts GERD-no longer on PPI Obesity-s/p sleeve 11/2020. BMI 38.1, down from 40.7 at last visit. Following with weight management. Following diet as per weight management clinic and doing well on Zepbound, increased to 7.5mg two months ago- no side effects. Brisk walking daily 40 minutes- recommended to burn 300 calories per day per weight management. Nephrolithiasis- following with urology. Last renal ultrasound 02/2025 showed nonobstructing lower pole calculus in the right kidney measuring 2 x 2 x 5 mm. No intervention recommended Hepatic steatosis-last LFTs within normal limits Hyperlipidemia-last LDL 135 Concerns: None Health maintenance: Last screening mammogram 03/2024 with 1 year follow-up advised. Scheduled for 03/24 Last Pap 12/2022 with 5 year follow-up advised. 10 year follow-up advised last colonosco py 10/2023 with 10 year follow-up advised. Dr. Simmons ROS: General: No fevers, malaise, unintentional weight loss HEENT: No blurred vision, diplopia. No sore throat, nasal congestion, rhinorrhea, sinus pain, ear pain Cardiovascular: No chest pain, palpitations, or leg edema Respiratory: No shortness of breath, wheezing, cough GI: No abdominal pain, nausea, vomiting, diarrhea, constipation, melena, hematochezia : No dysuria, hematuria, increased urinary frequency, decreased urinary output MSK: No myalgia, back pain Neuro: No headaches, weakness, paresthesias Skin: No rashes or lesions EXAM: Constitutional - Awake and Alert, No apparent distress Eyes - PERRL Cardiovascular - S1S2, RRR, No edema Respiratory - Normal lung expansion, Normal respiratory effort, No respiratory distress, CTA bilaterally Extremities - no calf tenderness bilaterally, no swelling Skin - Warm/Dry Neurological - Alert & oriented x3 Psychological - Appropriate affect PFSH Medical History Steatosis, liver Hepatomegaly Arthritis Diabetes GERD (gastroesophageal reflux disease) COVID-19 vaccine series completed Enlarged tongue Non-insulin dependent diabetes mellitus Adjustment disorder, unspecified Vitamin B12 deficiency Vitamin D deficiency DJD (degenerative joint disease) Morbid obesity Surgical History History of colonoscopy (~11/03/23) History of sleeve gastrectomy History of dilatation and curettage Hx of bilateral breast reduction surgery Hx of cholecystectomy Family History Mother Diabetes Father Hyperlipidemia Son Colitis Daughter No problems noted. 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 to a significant other at home: Yes (2 children 21 yr old and 16 yr old) Do you presently have visiting nurse or other home services: No Alcohol intake: current Alcohol intake frequency: holidays/special occasions only Comment: Aware of trip hazard Patient Tobacco Use Status: Never used Tobacco e-Cigarette/Vaping Use: Never Used service: No Current occupational status: employed Current occupation: [email or web address] Cognitive needs: No Hearing needs: No Vision needs: Yes (Rx glasses, contacts) Questionnaire Thrive Questionnaire Date Thrive assessed: 09/20/24 MARTINEZ-7 AMB Questionnaire MARTINEZ-7 Date MARTINEZ - 7 assessed: 09/20/24 Source: Developed by Drs. Azar Rodriguez, Eloisa Millan, Trev Melara and colleagues, with an educational ham from [employer]. Physical exam (Primary Care) Vital Signs: Last Vital Signs Temp 97.5 F 03/21/25 15:23 Pulse 106 H 03/21/25 15:23 Resp 18 03/21/25 15:23 BP 106/70 03/21/25 15:23 Pulse Ox 96 03/21/25 15:23 Oxygen Delivery Method Room Air 03/21/25 15:23 BMI result Body Mass Index 38.1 Tobacco/Smoking Status: Tobacco use Status Tobacco use date assessed 09/20/24 03/21/25 15:04 Patient Tobacco Use Status Never used Tobacco 03/21/25 15:04 e-Cigarette/Vaping Use Never Used 03/21/25 15:26 Thrive Assessment: Date of Thrive Assessment Date Thrive assessed 09/20/24 03/21/25 15:04 Coding Level of Care Code Est Pt Level 4 (43484) Complex EM visit Add On G2211 Diagnoses Non-insulin dependent diabetes mellitus GERD (gastroesophageal reflux disease) K21.9 Steatosis, liver K76.0 Obesity E66.9 Assessment & Plan Assessment & Plan (1) Non-insulin dependent diabetes mellitus: Category: Medical Plan: Controlled. Hgb A1c ordered. Continue diabetic diet and weight loss efforts. Continue Zepbound (2) GERD (gastroesophageal reflux disease): Code(s): K21.9 - Gastro-esophageal reflux disease without esophagitis Category: Medical Plan: Stable. Continue avoidance of triggering food items (3) Steatosis, liver: Code(s): K76.0 - Fatty (change of) liver, not elsewhere classified Category: Medical Plan: Liver profile ordered. Liver enzymes have improved, likely secondary to improvements in diet and exercise (4) Obesity: Code(s): E66.9 - Obesity, unspecified Category: Medical Plan: Commended on weight loss efforts thus far. Encouraged to continue with weight management. Continue on Zepbound, tolerating this well. Follow diet as advised by the weight management clinic as well as exercise recommendations Plan Follow-up in the office in 6 months. Labs to be completed following visit today Orders: Orders Hemoglobin A1c Today E66.9 - Obesity, unspecified, K21.9 - Gastro-esophageal reflux disease without esophagitis, K76.0 - Fatty (change of) liver, not elsewhere classified Complete Blood Count Auto Diff Today E66.9 - Obesity, unspecified, K21.9 - Gastro-esophageal reflux disease without esophagitis, K76.0 - Fatty (change of) liver, not elsewhere classified Liver Panel Today E66.9 - Obesity, unspecified, K21.9 - Gastro-esophageal reflux disease without esophagitis, K76.0 - Fatty (change of) liver, not elsewhere classified Vitamin D 25-OH Total Today E66.9 - Obesity, unspecified, K21.9 - Gastro- esophageal reflux disease without esophagitis, K76.0 - Fatty (change of) liver, not elsewhere classified Basic Metabolic Panel Today E66.9 - Obesity, unspecified, K21.9 - Gastro- esophageal reflux disease without esophagitis, K76.0 - Fatty (change of) liver, not elsewhere classified Lipid Panel Today E66.9 - Obesity, unspecified, K21.9 - Gastro-esophageal reflux disease without esophagitis, K76.0 - Fatty (change of) liver, not elsewhere classified
[2025-03-21 15:23] VITALS: BP 106/70; PULSE 106; RESP 18; TEMP 36.4; O2SAT 96; BMI 38.1
== END 2025-03-21 15:51 | disposition home or self-care (01) ==
PROVIDERS: PCP Physician Assistant; Visit Provider Physician Assistant
DX: K21.9 Gastro-esophageal reflux disease without esophagitis (principal); K76.0 Fatty (change of) liver, not elsewhere classified; E66.9 Obesity, unspecified

== ENCOUNTER 2025-03-21 15:17 | Outpatient (REF) | payer OTHER, SELFPAY ==
[2025-03-21 16:15] LABS: MANUAL DIFF FLAG NO
[2025-03-21 17:08] LABS: Hematocrit 46.8 % (37.0-47.0); Hemoglobin 15.4 g/dl (12.0-16.0); Imm Gran Abs Auto 0.02 X10*3/uL (0.00-0.03); Imm Gran Pct Auto 0.2 % (0.0-0.4); Lymphocytes Absolute Auto 3.3 X10*3/uL (1.2-4.9); Mean Corpuscular HGB Conc 32.9 g/dl (31.0-35.0); Mean Corpuscular Hemoglobin 30.6 pg (27.0-33.0); Mean Corpuscular Volume 93.0 fL (80.0-98.0); NRBC Abs Auto 0.000 X10*3/uL (0.0-0.012); NRBC Pct Auto 0.0 /100WBC (0.0-0.2); Platelet Count 287 X10*3/uL (160-400); Red Blood Count 5.03 X10*6/uL (4.20-5.50); White Blood Count 12.5 X10*3/uL (4.8-10.8)
[2025-03-21 17:46] LABS: Alanine Aminotransferase 40 U/L (0-31); Albumin Level 4.6 g/dL (3.5-5.0); Alkaline Phosphatase 65 U/L (39-117); Anion Gap 14 (12-20); Aspartate Amino Transferase 32 U/L (5-31); Blood Urea Nitrogen 20 mg/dL (9-16); Calcium 10.1 mg/dL (8.4-10.2); Carbon Dioxide 26 mmol/L (22-29); Chloride 106 mmol/L (96-108); Cholesterol 207 mg/dL (<200); Estimated Glomerular Filt Rate > 60; HDL Cholesterol 47 mg/dL (>40); Potassium 4.1 mmol/L (3.3-5.1); Sodium 142 mmol/L (135-145); Total Protein 7.2 g/dL (6.5-8.0); Triglycerides 169 mg/dL (<150)
== END 2025-03-21 15:18 | disposition home or self-care (01) ==
LOC: HO.LAB 15:17
PROVIDERS: PCP Physician Assistant; Visit Provider Physician Assistant
DX: K76.0 Fatty (change of) liver, not elsewhere classified (principal); K21.9 Gastro-esophageal reflux disease without esophagitis; E66.9 Obesity, unspecified; Z68.38 Body mass index [BMI] 38.0-38.9, adult
CPT/HCPCS: 36415; 80048; 80061; 80076; 82306; 83036; 85025; 99212

== ENCOUNTER 2025-03-24 16:07 | Outpatient (REF) | payer OTHER, SELFPAY ==
--- OUTSIDE RECORDS SUMMARY | 2023-11-03 03:50 | XMS_ITS ---
Author Organization [facility] Address [address] [place] [address] Care Team Providers Care Gripper Machine Operator Name Role Phone Graeme (RETIRED) Elijah ASHFORD Primary Care Provide r Azar Early Unavailable [phone] REASON FOR VISIT screening Problems Problem Type SNOMED Code ICD Code Onset Dates Problem Status W/U Status Risk Notes Problem Diverticular disease of colon (629241981) Diverticulosis of large intestine without perforation or abscess without bleeding (K57.30) Active confirmed Encounters Encounter Location Date Provider Diagnosis [facility] [place] [address] [place] [phone] 11/03/2023 Azar Simmons Encounter for scre ening colonoscopy Z12.11 ; Diverticulosis of large intestine without perforation or abscess without bleeding K57.30 and Other hemorrhoids K64.8 Assessments Encounter Date Diagnosis (ICD Code) Assessment Notes Treatment Notes Treatment Clinical Notes Section Notes 11/03/2023 Encounter for screening colonoscopy (ICD-10 - Z12.11) 11/03/2023 Diverticulosis of large intestine without perforation or abscess without bleeding (ICD-10 - K57.30) 11/03/2023 Other hemorrhoids (ICD-10 - K64.8) Plan Of Treatment No Information Progress Notes * YULIA BARRYDOB:1970 ( 54 yo F)Acc No.[id number]:11/03/2023 COLON WITH MAC Patient: Arnulfo HELENA YULIA Provider: Keon Simmons MD :1970 A ge:52 Y S ex:Female Date:11/03/2023 Address:[address] [place] [address] , [place] [id number] Pcp:Elijah Bedolla (RETIRED )MD Subjective: * Chief Complaints: * 1 . Screening. * Medical History: Objective: * Vitals: Assessment: * Assessment: 1. E ncounter for screening colonoscopy - Z12.11 (Primary) 2 . D iverticulosis of large intestine without perforation or abscess without bleeding - K57.30 3 .?Other hemorrhoids - K64.8 Plan: * Treatment: * Procedure Codes: 4 5378 DIAGNOSTIC COLONOSCOPY * * The named appointment provid er may or may not be the originator of this progress note, and it is not deemed complete until electronically signed by the appointment provider. Sign off status: Pending * Provider: Keon Simmons MD Date: 0 11/03/2023 Generated for Krystle lopez/Matt/Pinkyitting on: 1 05/24/2024 06:47 PM EST
--- OUTSIDE RECORDS SUMMARY | 2023-12-25 03:00 | XMS_ITS ---
Author Organization [employer] 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 Physical Encounters Encounter Location Date Provider Diagnosis [facility] [address] [place] [phone] 12/25/2023 ASHA NORIEGA Encounter for gynecological examination (general) (routine) without abnormal findings Z01.419 ; Encounter for screening mammogram for malignant neoplasm of breast Z12.31 and Encounter for screening for infections with a predominantly sexual mode of transmission Z11.3 Assessments Encounter Date Diagnosis (ICD Code) Assessment Notes Treatment Notes Treatment Clinical Notes Section Notes 12/25/2023 Encounter for gynecological examination (general) (routine) without abnormal findings (ICD-10 - Z01.419) During the visit, the following areas of concern were addressed: Discussed cervical cancer screening with either cytology alone every 3 years or high risk HPV co-testing every 5 years as per ASCCP guidelines. Advised continued annual pelvic exams. Patient encouraged to increase her level of exercise. SBE technique encouraged/tau ght. Patient reminded when annual mammogram is due. Patient encouraged to keep colon screening up to date. 12/25/2023 Encounter for screening mammogram for malignant neoplasm of breast (ICD-10 - Z12.31) 12/25/2023 Encounter for screening for infections with a predominantly sexual mode of transmission (ICD-10 - Z11.3) Plan Of Treatment Treatment Notes Assessment Notes Encounter for gynecological examination (general) (routine) without abnormal findings During the visit, the following areas of concern were addressed: Discussed cervical cancer screening with either cytology alone every 3 years or high risk HPV co-testing every 5 years as per ASCCP guidelines. Advised continued annual pelvic exams. Patient encouraged to increase her level of exercise. SBE technique encouraged/taught. Patient reminded when annual mammogram is due. Patient encouraged to keep colon screening up to date. Pending Test Test Name Order Date MM Digital Screening Mammogram 3D 2023 Next Appt Details Follow Up: 1 Year, Reason: Y early Medical Dir Exam Provider Name:ASHA Aguiar TOMER Lai, 03/02/2026 03:30:00 PM, [address], [address], [place], [address], Progress Notes * ARMINDA BARRYDOB:1970 ( 54 yo F)Acc No.[id number]:12/25/2023 PROGRESS NOTES Patient: ARMINDA GARCIA Provider: Stefania NORIEGA MD :1970 A ge:53 Y S ex:Female Date:12/25/2023 Address:[address] [place], [place] [id number] Pcp:JASWANT CALL Subjective: * Chief Complaints: * 1 . 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 S he has been in state of good health since her last exam. She has the following concerns: S he has received the Moderna Covid-19 vaccine. R elationship status: * for 12 years. She is sexually active. Sexual partner(s): male. She does not wish to have STI testing. M enses: *monthly, lasting 7-10 days, days 3-4 heavy, then tapering. She will saturate a super tampon 4x/day on the heavy days. No intermenstrual bleeding. C ontraception: *vasectomy, Mirena for control of heavy menstrual bleeding, on OCPs to regulate irregular bleeding. She states she no longer has diabetes. S he does *not report vaginal dryness. She does *not have hot flashes/night sweats. T he patient has never had an abnormal pap smear. Her most recent pap smear was 12/23/22 - NIL, neg HR HPV. Due for cotesting in 2027. S he has not been diagnosed with breast cancer. She does *not have a family history of breast cancer. Her last mammogram was *last year at [facility] - usually in Jan/Feb. S he does *not have a family history of colon cancer. She a has *not yet had a colonoscopy. T he patient does *not exercise. She plans to get back to it. * ROS: A nnual Medical Dir Exam ROS: Bowel habit changes d enies. B ladder symptoms d enies. V aginal discharge, unusual d enies. V aginal itch or odor d enies. w eight or appetite changes d enies. C hest pains, SOB d enies. d epression d enies.? B reast: Denies B reast lump. D enies N ipple discharge.? H ematology: Denies S wollen glands. S kin: Patient denies c hanging moles. P sychiatric: Denies A nxiety. * Medical History: Objective: * Vitals: * Examination: G eneral Examination: GENERAL APPEARANCE: i n no acute distress, well developed, well nourished, remote sensing program manager present in room. HEAD: n ormocephalic, atraumatic. NECK/THYROID: n demi supple, full range of motion, thyroid normal. LYMPH NODES: n o axillary or supraclavicular adenopathy.? SKIN: normal, good turgor, no rashes, no suspicious lesions. BREASTS: normal, no dimpling, no discharge, no drainage, no masses palpable bilaterally, nontender. ABDOMEN: soft, non-tender, non distended without masses or hepatosplenomegay. RECTAL: normal tone, no masses palpable. BACK: no costovertebral angle tenderness. FEMALE GENITOURINARY: V ulva without lesions or masses, vagina pink without abnormal discharge, lesions or masses, cervix appears normal and is not tender to palpation, uterus is normal size, mobile, nontender and anteverted, ovaries are not palpable. NEUROLOGIC: alert and oriented, gait normal. PSYCH: alert, oriented, cognitive function intact, cooperative with exam, good eye contact, mood/affect full range, speech clear. Assessment: * Assessment: 1. E ncounter for gynecological examination (general) (routine) without abnormal findings - Z01.419 (Primary) 2 . E ncounter for screening mammogram for malignant neoplasm of breast - Z12.31 3 . E ncounter for screening for infections with a predominantly sexual mode of transmission - Z11.3 Plan: * Treatment: 2. E ncounter for screening mammogram for malignant neoplasm of breast I maging: MM Digital Screening Mammogram 3D * Follow Up: 1 Year (Reason: Yearly Medical Dir Exam) * Images: Billing Information: * Visit Code: [id number] Preventive Care Est Pt. Age 40-64. * Procedure Codes: * Electronic signature of ASHA NORIEGA MD on 03/24/2025 at 06:47 PM EST Sign off status: Pending * Provider: Stefania NORIEGA MD Date: 0 12/25/2023 Generated for Krystle lopez/Matt/Pinkyitting on: 1 05/24/2024 06:47 PM EST History and Physical Notes * HPI (History of Present Illness) Category Sub-Category Detail Notes Category Not es Constitutional Arminda is a 53yo with LMP who presents for her yearly director epidemiology exam. She has been in state of good health since her last exam. She has the following concerns: She has received the Moderna Covid-19 vaccine. Relationship status: * for 12 years. She is sexually active. Sexual partner(s): male. She does not wish to have STI testing. Menses: *monthly, lasting 7-10 days, days 3-4 heavy, then tapering. She will saturate a super tampon 4x/day on the heavy days. No intermenstrual bleeding. Contraception: *vasectomy, Mirena for control of heavy menstrual bleeding, on OCPs to regulate irregular bleeding. She states she no longer has diabetes. She does *not report vaginal dryness. She does *not have hot flashes/night sweats. The patient has never had an abnormal pap smear. Her most recent pap smear was 12/23/22 - NIL, neg HR HPV. Due for cotesting in 2027. She has not been diagnosed with breast cancer. She does *not have a family history of breast cancer. Her last mammogram was *last year at [facility] - usually in Jan/Oct. She does *not have a family history of colon cancer. She a has *not yet had a colonoscopy. The patient does *not exercise. She plans to get back to it. Examination Category Sub-Category Detail Notes Category Not es General Examination GENERAL APPEARANCE: in no ac [place] distress, well developed, well nourished, remote sensing program manager present in room HEAD: normocephalic, atrau matic NECK/THYROID: neck supple, full ra nge of motion, thyroid normal ABDOMEN: soft, non-tender, no n distended without masses or hepatosplenomegay NEUROLOGIC: alert and oriented, gait normal SKIN: normal, good turgor, no rashes, no suspicious lesions BACK: no costovertebral an gle tenderness BREASTS: normal, no dimpling, no discharge, no drainage, no masses palpable bilaterally, nontender LYMPH NODES: no axillary or supra clavicular adenopathy RECTAL: normal tone, no mass es palpable PSYCH: alert, oriented, cog nitive function intact, cooperative with exam, good eye contact, mood/affect full range, speech clear FEMALE GENITOURINARY: Vulva without lesi ons or masses, vagina pink without abnormal discharge, lesions or masses, cervix appears normal and is not tender to palpation, uterus is normal size, mobile, nontender and anteverted, ovaries are not palpable
--- OUTSIDE RECORDS SUMMARY | 2025-03-24 18:48 | XMS_ITS | Patient Health Record ---
Author Organization [facility] Address [address] [place] [address] Care Team Providers Care Rn Advice Name Role Phone JASWANT CALL Primary Care Provider ASHA Phillips Unavailable [phone] Allergies Allergen (clinical drug ingredient) Drug/Non Drug [...] Status Risk Notes Problem Osteoarthritis of knee (174066118) Bilateral primary osteoarthritis of knee (M17.0) Active confirmed Problem Irregular menstruation (71949403) Irregular menstruation, unspecified (N92.6) Active confirmed Problem Abnormal uterine bleeding (76901393077762) Abnormal uterine and vaginal bleeding, unspecified (N93.9) Active confirmed Problem Body mass index 40+ - severely obese (654412159) Body mass index (BMI) 45.0-49.9, adult (Z68.42) Active confirmed Problem Intrauterine contraceptive device in situ (finding) (063065928) Presence of (intrauterine) contraceptive device (Z97.5) Active confirmed Problem Prediabetes (322416517) Prediabetes (R73.03) Active confirmed Problem Body mass index 40+ - morbidly obese (268897723) Body mass index (BMI) 50.0-59.9, adult (Z68.43) Active confirmed Problem COVID-19 (776684660) COVID-19 (U07.1) Active confirmed Vital Signs Temperature 98.0 degrees Fahrenheit 02/22/2025 Blood pressure diastolic 76 mm Hg 02/22/2025 Height 63.5 in 02/22/2025 Blood pressure systolic 114 mm Hg 02/22/2025 Weight 222 lbs 02/22/2025 BMI 38.7 kg/m2 02/22/2025 Encounters Encounter Location Date Provider Diagnosis [address] [address] 02/22/2025 ASHA NORIEGA Encounter for gynecological examination [...] Provider Name:ASHA Lai, 03/02/2026 03:30:00 PM, [address] [facility], [address], [place], [address], Insurance Providers Payer Name Payer Address Payer Phone Subscriber Number Group Number Insured Name Patient Relationship to Insured Coverage Start Date Coverage End Date [facility] [address] [address] [place] [address] [id number] YULIA BARRY Self - patient is the [...]
--- OUTSIDE RECORDS SUMMARY | 2025-03-24 18:48 | XMS_ITS | Patient Health Record ---
Author Organization [facility] Address [address] [place] [address] Care Team Providers Care Intertype Operator Name Role Phone Graeme (RETIRED) Elijah ASHFORD Primary Care Provide r Azar Early Unavailable [phone] Allergies Allergen (clinical drug ingredient) Drug/Non Drug [...] Status Risk Notes Problem Colon cancer screening (937377564) Colon cancer screening (Z12.11) Active confirmed Problem Pre-procedure evaluation check (851804789) Encounter for other preprocedural examination (Z01.818) Active confirmed Problem Diverticular disease of colon (358587106) Diverticulosis of large intestine without perforation or abscess without bleeding (K57.30) Active confirmed Plan Of Treatment Future Test Test Name Order Date COLONOSCOPY 07/29/2023 Insurance Providers Payer Name Payer Address Payer Phone Subscriber Number Group Number Insured Name Patient Relationship to Insured Coverage Start Date Coverage End Date [facility] [address] [address] [place], [place] [id number] [phone] [id number] YULIA BARRY Self - patient is the insured Medical (General) History Medical History History ICD Code Denies DC,DM,CVA,Lung disease,renal dise ase Surgical History Surgery Date(Month/Year) Cholecystectomy BREAST REDUCTION Sleeve gastrectomy at [facility] [place], [place] -lost 85#
== END 2025-03-24 16:08 | disposition home or self-care (01) ==
LOC: HO.MAMMO 16:07
PROVIDERS: Absent Provider Obstetrics & Gynecology; PCP Physician Assistant; Visit Provider Internal Medicine
DX: Z12.31 Encounter for screening mammogram for malignant neoplasm of breast (principal)
CPT/HCPCS: 77063; 77067

== ENCOUNTER → 2025-03-24 16:15 | Outpatient (BNV) | payer OTHER, SELFPAY | PROVIDERS: Absent Provider Obstetrics & Gynecology; PCP Physician Assistant; Visit Provider Internal Medicine | DX: Z12.31 Encounter for screening mammogram for malignant neoplasm of breast (principal) | CPT/HCPCS: 77063; 77067 ==